=== PATIENT | male | born 1950 | race Caucasian/White ===

== ENCOUNTER → 2018-03-02 09:03 | Outpatient (CLI) | payer OTHER, SELFPAY ==
[2018-03-02 09:36] LABS: Absolute Lymphocyte Count 2.27 X10^3/ul (0.83-4.51); Absolute Neutrophil Count 5.1 X10^3/uL (2.0-7.7); Basophil# 0.05 X10^3/uL; Basophil% 0.6 % (0-1); Eosinophil# 0.25 X10^3/uL; Eosinophils% 2.9 % (0-5); Hematocrit 40.6 % (40-54); Hemoglobin 13.2 g/dl (13.0-16.5); Lymphocyte # 2.27 X10^3/ul (4.0); Lymphocyte % 26.4 % (19-41); Mean Corp Hgb Conc 32.5 g/gl (32-36); Mean Corpuscular Volume 95.3 fL (80-94); Mean Platelet Vol. 9.6 fl (6.2-12.0); Monocyte# 0.94 X10^3/uL; Monocyte% 10.9 % (0-10); Neutrophil # 5.07 X10^3/uL (2.7-7.7); Neutrophil % 59.1 % (47-70); Platelet Count 314 K/mm3 (150-450); RBC Distribution Width CV 13.4 % (11.6-14.6); RBC Distribution Width SD 46.6 fl (35.1-43.9); Red Blood Count 4.26 M/mm3 (4.6-6.2); White Blood Count 8.6 K/mm3 (4.4-11.0)
[2018-03-02 09:39] LABS: POSITIVE COUNT NO; POSITIVE DIFFERENTIAL NO; POSITIVE MORPHOLOGY NO
[2018-03-02 09:50] LABS: Protein, Urine (Random) 8.5 mg/dL (<11.9); Protein:Creat Ratio 124 mg/g CRE (0-200)
[2018-03-02 10:03] LABS: Albumin, Serum 3.2 g/dL (3.2-5.0); BUN 55 mg/dL (7-18); Calcium,Total 8.2 mg/dL (8.5-10.1); Chloride 107 mmol/L (98-107); Cholesterol 227 mg/dL (200); Creatinine, Serum 3.05 mg/dL (0.70-1.30); EST Glomerular Filtration Rate 22 mL/min (>60); Est Glom Filt Rate - Afr Amer 26 mL/min (>60); Glucose 91 mg/dL (74-106); High Density Lipoprotein 39 mg/dL; Phosphorus 3.3 mg/dL (2.5-4.9); Potassium 4.7 mmol/L (3.5-5.1); Sodium Level 138 mmol/L (136-145); Triglycerides 158 mg/dL; Very Low Density Lipoprotein 32 mg/dL (5-40)
[2018-03-02 10:08] LABS: Vitamin D,25 Hydroxy 73.3 ng/mL (29.95-100.01)
== END ==
PROVIDERS: Family Provider Internal Medicine; PCP Internal Medicine; Visit Provider Internal Medicine
DX: I12.9 Hypertensive chronic kidney disease with stage 1 through stage 4 chronic kidney disease, or unspecified chronic kidney disease (principal); N18.3 Chronic kidney disease, stage 3 (moderate); E78.00 Pure hypercholesterolemia, unspecified
CPT/HCPCS: 36415; 80061; 80069; 82306; 82570; 84156; 85025

== ENCOUNTER → 2018-08-26 09:49 | Outpatient (CLI) | payer OTHER, SELFPAY ==
[2018-08-26 11:24] LABS: Hematocrit 41.9 % (40-54); Hemoglobin 13.9 g/dl (13.0-16.5); Mean Corp Hgb Conc 33.2 g/gl (32-36); Mean Corpuscular Hgb 31.9 pg (27.0-32.0); Mean Corpuscular Volume 96.1 fL (80-94); Mean Platelet Vol. 10.2 fl (6.2-12.0); Platelet Count 346 K/mm3 (150-450); RBC Distribution Width SD 44.9 fl (35.1-43.9); Red Blood Count 4.36 M/mm3 (4.6-6.2); White Blood Count 9.1 K/mm3 (4.4-11.0)
[2018-08-26 11:27] LABS: Scan Indicated on CBC? Y/N NO
[2018-08-26 11:56] LABS: Vitamin D,25 Hydroxy 58.3 ng/mL (29.95-100.01)
[2018-08-26 12:18] LABS: ALB/GLOB Ratio 0.8 RATIO (0.9-2.4); AST(SGOT) 21 U/L (15-37); Alanine Aminotransfer ALT/SGPT 39 U/L (16-61); Albumin, Serum 3.2 g/dL (3.2-5.0); Alkaline Phosphatase 116 U/L (45-117); Anion Gap 9 (5-15); BUN 46 mg/dL (7-18); BUN/Creat Ratio 16.9 RATIO (10-20); Calcium,Total 8.3 mg/dL (8.5-10.1); Chloride 105 mmol/L (98-107); Cholesterol 218 mg/dL (200); Creatinine, Serum 2.72 mg/dL (0.70-1.30); EST Glomerular Filtration Rate 25 mL/min (>60); Est Glom Filt Rate - Afr Amer 30 mL/min (>60); Globulin 4.1 g/dL (2.2-4.2); Glucose 82 mg/dL (74-106); High Density Lipoprotein 35 mg/dL; Potassium 4.5 mmol/L (3.5-5.1); Protein, Total 7.3 g/dL (6.4-8.2); Sodium Level 136 mmol/L (136-145); Triglycerides 181 mg/dL; Very Low Density Lipoprotein 36 mg/dL (5-40)
--- OUTSIDE RECORDS SUMMARY | 2018-10-12 08:40 | XMS RPT_ITS ---
:1950 Author Organization [employer] Address [facility] [place] [address] Phone Care Team Providers Name Role Phone Carlos Leggett MD Unavailable Reason for Visit Reason For Visit Description Start Date New/Est - 1st visit with physician Preliminary reason for visit data, not yet signed by the author as of right ring finger Preliminary reason for visit data, not yet signed by the author as of Chief Complaint Chief Complaint Description Start Date right ring finger Preliminary chief complaint data, not yet signed by the author as of Instructions Instruction Description Start Date CompletedPatient advised to follow-up with Primary Care Physician for BMI management. Plan of Care Type Date Detail Appointment 10:45 AM Carlos Leggett MD, [address] [facility], [address], [place], [address], Pending order XR HAND 3+ VWS-RT Pending order EMG/NCT bilateral upper extremity Medications Medication Instructions Start Stop Generic Name NDC Provider Date Date VITAMIN B-6 one tablet / PYRIDOXINE HCL 13405928183 Carlos A 100 MG TABS daily 25 Oleksandr MASSEY TAMSULOSIN Take two / TAMSULOSIN HCL 81213967703 Carlos A HCL 0.4 MG capsule daily 18 Oleksandr MASSEY CAPS METOPROLOL Take one tablet / METOPROLOL 83529309054 Carlos A SUCCINATE ER daily 18 SUCCINATE Oleksandr MASSEY 25 MG [id number] RANITIDINE Take 2 capsules / RANITIDINE HCL 16862754621 Carlos A HCL 150 MG twice daily 18 Oleksandr MASSEY CAPS GLUCOSAMINE-C Take one tablet / GLUCOSAMINE-CHONDR 00712066435 Jenna HONDROITIN daily 18 OITIN CAPS O'Greyson FUELER CAPS EYE VITAMINS Take one / MULTIPLE 53786207490 Jenna CAPS capsule daily 18 VITAMINS-MINERALS O'Greyson FUELER VITAMIN D3 Take one / CHOLECALCIFEROL 45338934957 Jenna SUPER capsule daily 18 O'Greyson FUELER STRENGTH 2000 UNIT CAPS FISH OIL 1000 Take one / OMEGA-3 FATTY 25345050240 Jenna MG CAPS capsule daily 18 ACIDS O'Greyson FUELER LOSARTAN Take one tablet / LOSARTAN POTASSIUM 43599460497 Jenna POTASSIUM 25 daily 18 O'Greyson FUELER MG TABS Conditions or Problems Problem Problem Onset Status Entry Provider Comment Standard Annotate Name Code Date Date Description Trigger 732053457 Active Carlos Morales Triggering of finger, (SNOMED CT) / Oleksandr MASSEY digit right index finger Carpal G56.01 Active Carlos Morales Carpal tunnel tunnel (ICD-10-CM) Oleksandr MASSEY syndrome, 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 Allergies, Adverse Reactions, Alerts Allergy Name Reaction Start Date Severity Status Provider Description ADVIL Kidney disease Critical Active Carlos Morales (IBUPROFEN Oleksandr MASSEY CAPS) Social History Concept Description Observation Name Observation Value Units Start Date Alcohol use ETOH USE Yes Preliminary social history data, not yet signed by the author as of Details of drug DRUG USE No misuse behavior Preliminary social history data, not yet signed by the author as of Former smoker SMOK STATUS former smoker Preliminary social history data, not yet signed by the author as of How many days of EXERCISEFREQ 2 days per moderate to week strenuous exercise, like a brisk walk, did you do in the last 7 days? Preliminary social history data, not yet signed by the author as of Vital Signs Date Name Value Unit Description BMI (Body Mass 28.31 kg/m2 Body Mass Index Index) [Ratio] Preliminary vital sign data, not yet signed by the author as of BP Diastolic 74 mm[Hg] blood pressure, diastolic Preliminary vital sign data, not yet signed by the author as of BP Diastolic 73 mm[Hg] blood pressure, diastolic, second observation Preliminary vital sign data, not yet signed by the author as of BP Systolic 141 mm[Hg] blood pressure, systolic Preliminary vital sign data, not yet signed by the author as of BP Systolic 138 mm[Hg] blood pressure, systolic, second observation Preliminary vital sign data, not yet signed by the author as of Heart Rate 67 /min pulse rate E&M Preliminary vital sign data, not yet signed by the author as of Height 69 [in_us] height E&M Preliminary vital sign data, not yet signed by the author as of Height 175 cm height in centimeters E&M Preliminary vital sign data, not yet signed by the author as of Weight Measured 191 [lb_av] weight E&M Preliminary vital sign data, not yet signed by the author as of Weight Measured 87 kg weight in kilograms E&M Preliminary vital sign data, not yet signed by the author as of Results Date Name Value Unit Range Flag Description Office Visit: New/Est - 1st visit with physician, Rm: MEDS REVIEW Done Documentation of current medications (procedure) Preliminary observation data, not yet signed by the author as of Preliminary observation data, not yet signed by the author as of XRAY HX of the shoulder on xray history 2015 at [facility], of the elbow on 2007 at [facility] Preliminary observation data, not yet signed by the author as of SMOK STATUS former smoker Tobacco smoking status NHIS Preliminary observation data, not yet signed by the author as of Clinical Summary: Scanned ROS Summary ROS COMM Frequenent genitourinary system Urination review of systems, comments ROS: Complains genitourinary review of systems, E&M ROS GI COM Heart Burn Gastrointestional review of systems, comment ROS: GI Complains ROS gastrointestinal E&M ROS ENDO Denies endocrine ROS ROS:MUSCSKEL Denies ROS musculoskeletal E&M ROS: PSYCH Denies ROS psychiatric E&M ROS HEME Denies ROS hematologic/lymphatic E&M ROS SKIN Denies ROS skin E&M ROS ENT Denies ROS ENT E&M ROS:GENERAL Denies ROS general E&M ROS_NEUR_COM Numbness,[place] Review of Systems g Neurologic comment ROS: NEURO Complains ROS neurological E&M ROS:PULMON Denies ROS pulmonary E&M ROS: CARDIAC Denies ROS cardiovascular E&M Clinical Summary: Scanned History Summary DEPEXER FREQ 2 days per week Data entered by patient exercise frequency DEP EXERTYP walkingstrength Data entered by training patient exercise type DEP EXERCISE Yes data entered by patient, exercise history DEP DRUG USE No data entered by patient, drug (of abuse) use 3+ETOHDAILY less than 1 drink consumes three or per day more drinks of alcohol (beer, wine, liquor) daily or almost daily ETOHPERFRM BeerWine adl form etoh alcohol performance DEP ETOH USE Yes data entered by patient, alcohol (ethanol or ETOH) use DEP CIG SMKG 1/2 pack per day data entered by patient, cigarette smoking DEP SH CSMO former smoker data entered by patient, social history, current smoker [place] 3 Floors housing unit size (asthma environmental history, housing) (from single family to don't know) [place] House Housing Type: apartment, house, retirement, trailer, none #DEP CHLDRN No Number of dependent children DEP SH MAST data entered by patient, social history, marital status DEP EMPLOYER Retired data entered by patient, Employer Name SISTER A/D Unknown sister of patient(s) alive or [facility] DAD [facility] Cancer data entered by patient, father's medical history FATHER A/D father of patient is alive or [facility] MOM [facility] Heart data entered by diseaseVascular patient, mother's disease medical history MOTHER A/D mother of patient is alive or [facility] SURGERY Carpal Data entered by tunnelShoulder patient, history surgery otherElbow of past surgeries surgery [facility] Kidney diseaseHigh data entered by blood pressureHigh patient, past cholesterol medical history Clinical Summary: [facility]Patient[facility] SOP account number Procedures Code Procedure Name Date Entry Date CPT-90666 Tendon Sheath injection CPT-J3301 Injection - triamcinolone acetonide 10 mg G8730 Pain assessment documented as positive - follow-up documented G8427 Current medications documented 1036F Tobacco screening was negative - non user G8417 BMI documented as above normal parameters - follow-up documented G8783 Blood pressure within normal parameters - no follow-up required [facility]-[id number] Patient Encounter Medications Administered No information available. Immunizations No information available. Advance Directives There may be information available, but it has not been provided by the sender. Assessments There may be information available, but it has not been provided by the sender. Review of Systems There may be information available, but it has not been provided by the sender. Family History There may be information available, but it has not been provided by the sender. History of Past Illness There may be information available, but it has not been provided by the sender. History of Present Illness There may be information available, but it has not been provided by the sender.
--- OUTSIDE RECORDS SUMMARY | 2018-10-12 08:40 | XMS RPT_ITS ---
:1950 Author Organization [employer] Address [address] [place] [address] Phone Care Team Providers Name Role Phone Gavin KURTZ, Clare Pinon Unavailable Reason for Visit Reason For Visit Description Start Date Postop - subsequent visit Preliminary reason for visit data, not yet signed by the author as of right hand post Revision right carpal tunnel release;Right wrist flexor tendon tenosynovectomy;Application of nerve wrap to median nerve;Hypothenar fat flap on 08/12/2018 Preliminary reason for visit data, not yet signed by the author as of Chief Complaint Chief Complaint Description Start Date right hand post Revision right carpal tunnel release;Right wrist flexor tendon tenosynovectomy;Application of nerve wrap to median nerve;Hypothenar fat flap on 08/12/2018 Preliminary chief complaint data, not yet signed by the author as of Instructions Instruction Description Start Date CompletedPlease follow-up with Primary Care Physician or Preschool Principal for treatment or adjustment of medication regarding elevated blood pressure.Patient advised to follow-up with Primary Care Physician for BMI management. Plan of Care Type Date Detail Appointment 12:45 PM Clare Alonso PA-C, [address] [facility], [address], [place], [address], Appointment 10:30 AM Carlos Leggett MD, [address] [facility], [address], [place], [address], Patient education \[email or web address]\[email or web address]_PtEducation\htn.p df Medications Medication Instructions Start Stop Generic Name NDC Provider Date Date METOPROLOL 1 tablet daily / METOPROLOL [id number] Evita SUCCINATE ER 18 SUCCINATE Nick 25 MG TRADE MARKER [id number] LOSARTAN 1 tablet daily / LOSARTAN POTASSIUM 57869575850 Evita POTASSIUM 25 18 Nick MG TABS TRADE MARKER TAMSULOSIN Twice daily as / TAMSULOSIN HCL 37160561686 Evita HCL 0.4 MG directed 18 Nick CAPS TRADE MARKER RANITIDINE Twice daily as / RANITIDINE HCL 72597054192 Evita HCL 150 MG directed 18 Nick CAPS TRADE MARKER FISH OIL 1000 1 capsule daily / OMEGA-3 FATTY 42310238073 Evita MG CAPS 18 ACIDS Nick TRADE MARKER VITAMIN D3 1 capsule daily / CHOLECALCIFEROL 63079436396 Evita SUPER 18 Nick STRENGTH 2000 TRADE MARKER UNIT CAPS EYE VITAMINS 1 capsule daily / MULTIPLE 65055010090 Evita CAPS 18 VITAMINS-MINERALS Nick TRADE MARKER OSTEO BI-FLEX as directed / MIS NATURAL 30050919462 Evita ADV TRIPLE ST 18 PRODUCTS Nick TABS TRADE MARKER Conditions or Problems Problem Name Problem Onset Status Entry Provider Comment Standard Annotate Code Date Date Description Tendinitis 316296566 Active Carlos A Tendinitis of flexor (SNOMED CT) / Oleksandr MASSEY of flexor tendon of tendon of right hand hand Carpal 99211615 Active Carlos A Carpal tunnel (SNOMED CT) / Oleksandr MASSEY tunnel syndrome, syndrome left Trigger 510774652 Active Carlos A Triggering finger, (SNOMED CT) / Oleksandr MASSEY of digit right index finger Carpal G56.01 Active Carlos A Carpal tunnel (ICD-10-CM) / Oleksandr MASSEY tunnel syndrome syndrome, right upper right upper limb limb Allergies, Adverse Reactions, Alerts Allergy Name Reaction Start Date Severity Status Provider Description NSAID'S Kidney disease Critical Active Evita Nick TRADE MARKER Social History No information available. Vital Signs Date Name Value Unit Description BMI (Body Mass 28.31 kg/m2 Body Mass Index Index) [Ratio] Preliminary vital sign data, not yet signed by the author as of Body Temperature 97.7 [degF] temperature E&M Preliminary vital sign data, not yet signed by the author as of Body Temperature 36.5 Bhargavi temperature in centigrade E&M Preliminary vital sign data, not yet signed by the author as of BP Diastolic 76 mm[Hg] blood pressure, diastolic Preliminary vital sign data, not yet signed by the author as of BP Diastolic 85 mm[Hg] blood pressure, diastolic, second observation Preliminary vital sign data, not yet signed by the author as of BP Systolic 175 mm[Hg] blood pressure, systolic Preliminary vital sign data, not yet signed by the author as of BP Systolic 168 mm[Hg] blood pressure, systolic, second observation Preliminary vital sign data, not yet signed by the author as of Heart Rate 76 /min pulse rate E&M Preliminary vital sign [...] Value Unit Range Flag Description Office Visit: Postop - subsequent visit, Rm: MEDS REVIEW Done Documentation of current medications (procedure) Preliminary observation data, not yet signed by the author as of Preliminary observation data, not yet signed by the author as of Clinical Summary: HMSPatientID SOP account number Office Visit: Postop - 1st visit, Rm: MEDS REVIEW Done Documentation of current medications (procedure) Clinical Summary: HMSPatientID SOP account number Procedures Code Procedure Name Date Entry Date G8731 Pain assessment documented as negative - follow-up not required G8427 Current medications documented 1036F Tobacco screening was negative - non user G8417 BMI documented as above normal parameters - follow-up documented G8950 Blood pressure outside of normal parameters - follow-up documented [facility]-[id number] Patient Encounter Medications Administered No information available. [...]
--- OUTSIDE RECORDS SUMMARY | 2018-10-12 08:40 | XMS RPT_ITS ---
:1950 Author Organization [employer] Address [address] [place] [address] Phone Care Team Providers Name Role Phone Carlos Leggett MD Reason for Visit Reason For Visit Description Start Date Postop - 1st visit Preliminary reason for visit data, not yet signed by the author as of right wrist post Revision right carpal tunnel release;Right wrist flexor tendon tenosynovectomy;Application of nerve wrap to median nerve;Hypothenar fat flap on 08/12/2018 Preliminary reason for visit data, not yet signed by the author as of Chief Complaint Chief Complaint Description Start Date right wrist post Revision right carpal tunnel release;Right wrist flexor tendon tenosynovectomy;Application of nerve wrap to median nerve;Hypothenar fat flap on 08/12/2018 Preliminary chief complaint data, not yet signed by the author as of Instructions Instruction Description Start Date CompletedPatient advised to follow-up with Primary Care Physician for BMI management. Plan of Care Type Date Detail Appointment 10:30 AM Carlos Leggett MD, [address] [facility], [place] [address], [place], [address], Appointment 11:30 AM Arcadio ARTEAGA, [address] [facility] [address], [place], [address], Appointment 10:30 AM Carlos Leggett MD, [address] [facility], [facility] [address], [place], [address], Medications Medication Instructions Start Stop Generic Name NDC Provider Date Date METOPROLOL 1 tablet daily / METOPROLOL 48093979109 Evita SUCCINATE ER 18 SUCCINATE Nick 25 MG DIRECTORY CARRIER [id number] LOSARTAN 1 tablet daily / LOSARTAN POTASSIUM 09200357654 Evita POTASSIUM 25 18 Nick MG TABS DIRECTORY CARRIER TAMSULOSIN Twice daily as / TAMSULOSIN HCL 76044941648 Evita HCL 0.4 MG directed 18 Nick CAPS DIRECTORY CARRIER RANITIDINE Twice daily as / RANITIDINE HCL 15402621663 Evita HCL 150 MG directed 18 Nick CAPS DIRECTORY CARRIER FISH OIL 1000 1 capsule daily / OMEGA-3 FATTY 96770152560 Evita MG CAPS 18 ACIDS Nick DIRECTORY CARRIER VITAMIN D3 1 capsule daily / CHOLECALCIFEROL 48283465833 Evita SUPER 18 Nick STRENGTH 2000 DIRECTORY CARRIER UNIT CAPS EYE VITAMINS 1 capsule daily / MULTIPLE 76566446403 Evita CAPS 18 VITAMINS-MINERALS Nick DIRECTORY CARRIER OSTEO BI-FLEX as directed / MISC NATURAL 48048261019 Evita ADV TRIPLE ST 18 PRODUCTS Nick TABS DIRECTORY CARRIER Conditions or Problems Problem Name Problem Onset Status Entry Provider Comment Standard Annotate Code Date Date Description Tendinitis 802211166 Active Carlos A Tendinitis of flexor (SNOMED CT) / Oleksandr MASSEY of flexor tendon of tendon of right hand hand Carpal 61599690 Active Carlos A Carpal tunnel (SNOMED CT) / Oleksandr MASSEY tunnel syndrome, syndrome left Trigger 233682805 Active Carlos A Triggering finger, (SNOMED CT) / Oleksandr MASSEY of digit right index finger Carpal G56.01 Active Carlos A Carpal tunnel (ICD-10-CM) / Oleksandr MASSEY tunnel syndrome syndrome, right upper right upper limb limb Allergies, Adverse Reactions, Alerts Allergy Name Reaction Start Date Severity Status Provider Description NSAID'S Kidney disease Critical Active Evita Nick DIRECTORY CARRIER Social History No information available. Vital Signs Date Name Value Unit Description BMI (Body Mass 28.31 kg/m2 Body Mass Index Index) [Ratio] Preliminary vital sign data, not yet signed by the author as of BP Diastolic 73 mm[Hg] blood pressure, diastolic Preliminary vital sign data, not yet signed by the author as of BP Systolic 126 mm[Hg] blood pressure, systolic Preliminary vital sign data, not yet signed by the author as of Heart Rate 68 /min pulse rate E&M Preliminary vital sign [...] Range Flag Description Office Visit: Postop - 1st visit, Rm: MEDS REVIEW Done Documentation of current medications (procedure) Preliminary observation data, not yet signed by the author as of Preliminary observation data, not yet signed by the author as of Clinical Summary: HMSPatientID SOP account number Procedures Code Procedure Name Date Entry Date CPT-19796 Occupational Therapy G8730 Pain assessment documented as positive - follow-up documented G8427 Current medications documented 1036F Tobacco screening was negative - non user G8417 BMI documented as above normal parameters - follow-up documented G8783 Blood pressure within normal parameters - no follow-up required [facility]-[id number] Patient Encounter Medications Administered No information available. [...]
--- OUTSIDE RECORDS SUMMARY | 2018-10-12 08:41 | XMS RPT_ITS ---
:1950 Author Organization OH[facility] Care Team Providers Name Role Phone RIYA SON Attending Unavailable TALAMPAS, RIYA D Attending Unavailable TALAMPAS, RIYA D Referring Unavailable Talampas, Riya Attending Unavailable Talampas, Riya Referring Unavailable Talampas, Riya Primary Care Unavailable Talampas, Riya Attending Unavailable Talampas, Irya Referring Unavailable Talampas, Riya Primary Care Unavailable PROBLEMS PROBLEMS DATE TYPE CONDITION / CODE ATTENDING STATUS SOURCE 08/26/2018 Unknown N18.3 - Chronic Talampas, Riya Active [facility] disease, [facility] stage 3 (moderate) Hospital / N18.3(ICD-10) Repository 08/26/2018 Unknown I10 - Essential Talampas, Riya Active [facility] (primary) Community hypertension / Hospital I10(ICD-10) Repository 08/26/2018 Unknown E55.9 - Vitamin D Talampas, Riya Active [facility] deficiency, [facility] unspecified / Hospital E55.9(ICD-10) Repository 08/26/2018 Unknown E78.00 - Pure Talampas, Riya Active [place] hypercholesterolem Community ia, unspecified / Hospital E78.00(ICD-10) Repository 03/09/2018 Active Unknown / TALAMPAS, RIYA Active [facility] UNK(Unknown) D Main [place] Repository PROCEDURES PROCEDURES No Procedure Records FoundRESULTS RESULTS PROGRESS Observed: 09/02/2018 Status: COMPLETED Source: [place] 11:29 AM [facility] REPOSITORY HNO ID: [id number] Author: Riya Son Service: (none) Author Type: Physician Type: Progress Notes Filed: 09/26/2018 6:07 PM Note Text: Patient presents with: F/U 6 months SUBJECTIVE: Herber Yung is a 68 year old year old gentleman here today for 6 month follow up appointment for review of medical conditions. Had episode of elevated BP and heart racing to about 180/92 with HR 95 after tea and coffee. HR 122 when started on machine at [facility]. Asymptomatic. Carpal Tunnel revision--still healing. Numbness and tingling betterbut not yet gone. Right wrist. Will have OT starting tomorrow. No palpations noted. Did note some extra and skipped beats when checking pulse. Did not feel in chest. Some GERD lately. Breakthrough 2 to 3 times a week. Doing better with pushing fluids. 3 glasses water plus coffee in AM. 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 COMPOUNDED PRESCRIPTION Lab order: Renal panel, CBC with diff, Urine protein to creatinine ratio, Vitamin D25-OH, lipid panel. Diagnosis: N18.3, I10, E78.00, I10 zgep-qolj-osl#2-U-uega-ana lilia-bor (OSTEO BI-FLEX TRIPLE STRENGTH) 750 mg-644 mg- 30 mg-1 mg tab Take by mouth. losartan (COZAAR) 25 mg tablet Take 1 tablet by mouth once daily. metoprolol tartrate, short acting, (LOPRESSOR) 25 mg tablet Take 1 tablet by mouth every evening. multivitamin ORAL tablet Take 1 tablet by mouth once daily. [place]-3 Fatty Acids (FISH OIL) 500 mg ORAL Cap Take 2 capsules by mouth once daily. ranitidine (ZANTAC) 150 mg tablet Take 1 tablet by mouth twice daily. tamsulosin ER (FLOMAX) 0.4 mg cp24 Take 2 capsules by mouth daily at bedtime. [facility] vit A-vit C-vit A-qeet-ytspje (EYE VITAMIN AND MINERALS) 7,160-113-100 lklq-qf-jmoz tab Take by mouth. No current facility-administered medications for this visit. OBJECTIVE: BP 122/60 (BP Site: Left Arm, BP Position: Sitting, BP Cuff Size: Regular Adult) Pulse 72 Resp 12 Wt 87.1 kg (192 lb) BMI 28.77 kg/m? Patient is alert, oriented times 3, no apparent distress, affect is bright, reactive. Last 5 Encounter BP Readings: Date: BP: 09/02/2018 122/60 03/09/2018 112/58 09/01/2017 130/80 02/04/2017 128/60 07/31/2016 126/68 Last 5 Encounter Wt Readings: Date: Wt: 09/02/2018 87.1 kg (192 lb) 03/09/2018 85.7 kg (189 lb) 09/01/2017 86.6 kg (191 lb) 02/04/2017 88.5 kg (195 lb) 07/31/2016 87.1 kg (192 lb) Heart: Regular rate, rhythm, no murmurs, gallops, rubs. Some ectopy noted but otherwise RRR. Lungs: Clear to auscultation, bilaterally, breathing non labored. Ext: No cyanosis, clubbing, or edema. right wrist--surgey wound from carpal tunnel revision healing well ASSESSMENT AND PLAN: Encounter Diagnosis ICD-10-CM 1. Essential hypertension I10 metoprolol tartrate, short acting, (LOPRESSOR) 25 mg tablet losartan (COZAAR) 25 mg tablet COMP METABOLIC PANEL CBC 2. Pure hypercholesterolemia E78.00 LIPID PANEL (OUTSIDE) LIPID PANEL BASIC 3. CKD (chronic kidney disease) stage 3, GFR 30-59 ml/min ([facility]) N18.3 COMP METABOLIC PANEL CBC Cr and BU improved but eGFR still 25 4. Gastroesophageal reflux disease without esophagitis K21.9 ranitidine (ZANTAC) 150 mg tablet omeprazole (PRILOSEC) 20 mg capsule 5. Tachycardia, paroxysmal (HCC) I47.9 Reviewed episodes of heart racing and elevated BP. Asymptomatic. Able to keep exercising. Monitor. Stay hydrated--seems to help decrease episodes; also for renal protection given CKD stage 3 eGFR. Further evaluation and treatment as indicated. Continue Q3mdqaktk for GERD. Further evaluation and treatment as indicated. Above issues addressed with patient. Patient involved in shared decision making for management of medical issues. History and medications reviewed. Epic updated as needed Refills taken care of and meds adjusted as indicated after reviewed history, exam and labs. Health Maintenance reviewed. Updated record and/or ordered tests as recorded. Further evaluation and treatment as indicated. Encouraged on efforts at healthy diet and regular exercise and adequate sleep. The majority of the visit was spent counseling and/or coordinating care for the patient. Hrda-ed-temo time was at least 20 minutes. Riya Son MD CNOV Observed: 09/02/2018 Status: COMPLETED Source: [place] 11:00 AM [facility] REPOSITORY Office Visit (INTMWS) HERBER YUNG ([id number]) 1950 M Date Time Provider Department 09/02/18 11:00 AM RIYA SON INTMWS During your visit today, we recorded the following information about you: Pulse Respiration Blood pressure Weight 72/minute 12/minute 122/60 87.1 kg Riya Son MD 09/26/2018 6:07 PM Signed Patient presents with: F/U 6 months SUBJECTIVE: Herber Yung is a 68 year old year old gentleman here today for 6 month follow up appointment for review of medical conditions. Had episode of elevated BP and heart racing to about 180/92 with HR 95 after tea and coffee. HR 122 when started on machine at [facility]. Asymptomatic. Carpal Tunnel revision--still healing. Numbness and tingling betterbut not yet gone. Right wrist. Will have OT starting tomorrow. No palpations noted. Did note some extra and skipped beats when checking pulse. Did not feel in chest. Some GERD lately. Breakthrough 2 to 3 times a week. Doing better with pushing fluids. 3 glasses water plus coffee in AM. 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 COMPOUNDED PRESCRIPTION Lab order: Renal panel, CBC with diff, Urine protein to creatinine ratio, Vitamin D25-OH, lipid panel. Diagnosis: N18.3, I10, E78.00, I10 cftt-kpvp-ieb#6-A-zftr-ana lilia-bor (OSTEO BI-FLEX TRIPLE STRENGTH) 750 mg-644 mg- 30 mg-1 mg tab Take by mouth. losartan (COZAAR) 25 mg tablet Take 1 tablet by mouth once daily. metoprolol tartrate, short acting, (LOPRESSOR) 25 mg tablet Take 1 tablet by mouth every evening. multivitamin ORAL tablet Take 1 tablet by mouth once daily. [place]-3 Fatty Acids (FISH OIL) 500 mg ORAL Cap Take 2 capsules by mouth once daily. ranitidine (ZANTAC) 150 mg tablet Take 1 tablet by mouth twice daily. tamsulosin ER (FLOMAX) 0.4 mg cp24 Take 2 capsules by mouth daily at bedtime. [facility]) vit A-vit C-vit E-jsjf-lebynz (EYE VITAMIN AND MINERALS) 7,160-113-100 ewyu-ib-hrjw tab Take by mouth. No current facility-administered medications for this visit. OBJECTIVE: BP 122/60 (BP Site: Left Arm, BP Position: Sitting, BP Cuff Size: Regular Adult) Pulse 72 Resp 12 Wt 87.1 kg (192 lb) BMI 28.77 kg/m? Patient is alert, oriented times 3, no apparent distress, affect is bright, reactive. Last 5 Encounter BP Readings: Date: BP: 09/02/2018 122/60 03/09/2018 112/58 09/01/2017 130/80 02/04/2017 128/60 07/31/2016 126/68 Last 5 Encounter Wt Readings: Date: Wt: 09/02/2018 87.1 kg (192 lb) 03/09/2018 85.7 kg (189 lb) 09/01/2017 86.6 kg (191 lb) 02/04/2017 88.5 kg (195 lb) 07/31/2016 87.1 kg (192 lb) Heart: Regular rate, rhythm, no murmurs, gallops, rubs. Some ectopy noted but otherwise RRR. Lungs: Clear to auscultation, bilaterally, breathing non labored. Ext: No cyanosis, clubbing, or edema. right wrist--surgey wound from carpal tunnel revision healing well ASSESSMENT AND PLAN: Encounter Diagnosis ICD-10-CM 1. Essential hypertension I10 metoprolol tartrate, short acting, (LOPRESSOR) 25 mg tablet losartan (COZAAR) 25 mg tablet COMP METABOLIC PANEL CBC 2. Pure hypercholesterolemia E78.00 LIPID PANEL (OUTSIDE) LIPID PANEL BASIC 3. CKD (chronic kidney disease) stage 3, GFR 30-59 ml/min ([facility]) N18.3 COMP METABOLIC PANEL CBC Cr and BU improved but eGFR still 25 4. Gastroesophageal reflux disease without esophagitis K21.9 ranitidine (ZANTAC) 150 mg tablet omeprazole (PRILOSEC) 20 mg capsule 5. Tachycardia, paroxysmal ([facility]) I47.9 Reviewed episodes of heart racing and elevated BP. Asymptomatic. Able to keep exercising. Monitor. Stay hydrated--seems to help decrease episodes; also for renal protection given CKD stage 3 eGFR. Further evaluation and treatment as indicated. Continue Q4ogncdez for GERD. Further evaluation and treatment as indicated. Above issues addressed with patient. Patient involved in shared decision making for management of medical issues. History and medications reviewed. Epic updated as needed Refills taken care of and meds adjusted as indicated after reviewed history, exam and labs. Health Maintenance reviewed. Updated record and/or ordered tests as recorded. Further evaluation and treatment as indicated. Encouraged on efforts at healthy diet and regular exercise and adequate sleep. The majority of the visit was spent counseling and/or coordinating care for the patient. Tcnh-mv-rpou time was at least 20 minutes. MD Riya Spence MD 09/02/2018 11:41 AM Signed May take an extra metoprolol 25 mg as needed for blood pressure staying over 150/100 or heart rate over 100. If have to do this very often, can take metoprolol 25 mg twice daily routinely. See if the episodes in the morning--might be because short- acting metoprolol is not lasting 24 hours. Let me know if need new prescription to cover for taking more. Referring Provider: RIYA SON [[id number]] Allergies As of Date: 09/02/2018 Noted Allergy Reaction ADVIL (IBUPROFEN) 04/30/2011 14 - Other: See Comments Comments: Advil had caused BP to go high after just 2 days Date Reviewed: 09/02/2018 Reviewed by: Kurt Myers - Fully Assessed Reason for Visit: F/U 6 months [1177] Primary Visit Diagnosis:Essential hypertension [I10] Other Visit Diagnoses:Pure hypercholesterolemia [E78.00] CKD (chronic kidney disease) stage 3, GFR 30-59 ml/min (HCC) [N18.3] Comment:Cr and BU improved but eGFR still 25 Gastroesophageal reflux disease without esophagitis [K21.9] Tachycardia, paroxysmal (HCC) [I47.9] Order(s):LIPID PANEL (OUTSIDE) [9570489] Order #: [id number] FASTING BLOOD SUGAR (OUTSIDE) [8718989] Order #: [id number] ranitidine (ZANTAC) 150 mg tabletTake 1 tablet by mouth twice daily.Disp: 180 tabletRfl: 3 metoprolol tartrate, short acting, (LOPRESSOR) 25 mg tabletTake 1 tablet by mouth every evening.Disp: 90 tabletRfl: 3 losartan (COZAAR) 25 mg tabletTake 1 tablet by mouth once daily.Disp: 90 tabletRfl: 3 omeprazole (PRILOSEC) 20 mg capsuleTake 1 capsule by mouth daily before breakfast. 1/2 hr before meal.Disp: 30 capsuleRfl: 1 COMP METABOLIC PANEL [SQCMP] Order #: [id number] FUTURE LIPID PANEL BASIC [SQLIPB] Order #: [id number] FUTURE CBC [SQCBC] Order #: [id number] FUTURE Prescriptions as of 09/02/2018 Sig: RANITIDINE 150 MG TABLET Take 1 tablet by mouth twice * METOPROLOL TARTRATE 25 MG TAB* Take 1 tablet by mouth every * LOSARTAN 25 MG TABLET Take 1 tablet by mouth once d* COMPOUNDED PRESCRIPTION Lab order: Renal panel, CBC* TAMSULOSIN 0.4 MG CAPSULE Take 2 capsules by mouth nikolai* GLUCOSAMINE 750 MG-CHONDROITI* Take by mouth. VIT A 7,160 UNIT-VIT C 113 MG* Take by mouth. CHOLECALCIFEROL (VITAMIN D3) * Take 1 tablet by mouth once d* * [place]-3 FATTY ACIDS 500 MG CA* Take 2 capsules by mouth once* * MULTIVITAMIN TABLET Take 1 tablet by mouth once d* OMEPRAZOLE 20 MG CAPSULE,ROXANNE* Take 1 capsule by mouth daily* Problem List As Of Date 09/02/2018 Noted Resolved PURE HYPERCHOLESTEROLEM [E78.00] More... Essential hypertension [I10] IMPAIRED RENAL FUNCT NOS [N25.9] INVALID FOR* More... ESOPHAGEAL REFLUX [K21.9] INVALID FOR* More... OVERWEIGHT [E66.3] INVALID FOR* More... BPH with obstruction/lower urinary tract sympto*INVALID FOR* More... Benign Neoplasm of Colon [D12.6] INVALID FOR* More... Diverticulosis of Colon (without Mention of Hem*INVALID FOR* Special screening for malignant neoplasms, colo*INVALID FOR* CKD (chronic kidney disease) stage 3, GFR 30-59*INVALID FOR* More... Other instructions from your clinician: May take an extra metoprolol 25 mg as needed for blood pressure staying over 150/100 or heart rate over 100. If have to do this very often, can take metoprolol 25 mg twice daily routinely. See if the episodes in the morning--might be because short-acting metoprolol is not lasting 24 hours. Let me know if need new prescription to cover for taking more. Prescriptions ordered this encounter Disp Refills Start End RANITIDINE 150 MG TABLET 180 * 3 09/02/2018 Route: ORAL Sig: Take 1 tablet by mouth twice daily. METOPROLOL TARTRATE 25 MG TABLET 90 t* 3 09/02/2018 Route: ORAL Sig: Take 1 tablet by mouth every evening. LOSARTAN 25 MG TABLET 90 t* 3 09/02/2018 Route: ORAL Sig: Take 1 tablet by mouth once daily. OMEPRAZOLE 20 MG CAPSULE,DELAYED REL* 30 c* 1 09/02/2018 Route: ORAL Sig: Take 1 capsule by mouth daily before breakfast. 1/2 hr before meal. Medications Discontinued During This Encounter ranitidine (ZANTAC) 150 mg tablet 180 * 3 09/01/2017 09/02/2018 Route: ORAL Sig: Take 1 tablet by mouth twice daily. Disc: Reason for discontinue is not on file. metoprolol tartrate, short acting, (* 90 t* 3 09/01/2017 09/02/2018 Route: ORAL Sig: Take 1 tablet by mouth every evening. Disc: Reason for discontinue is not on file. losartan (COZAAR) 25 mg tablet 90 t* 3 09/01/2017 09/02/2018 Route: ORAL Sig: Take 1 tablet by mouth once daily. Disc: Reason for discontinue is not on file. Disposition: Return in about 6 months (around 03/03/2019) for 6 months follow up, With labs prior. Follow-up and Disposition History Recorded Encounter Status:Closed by RIYA SON MD on 09/26/18 CBC-COMPLETE BLOOD CNT Collected: 08/26/2018 Status: F Source: [place] NO DIFF 9:55 AM [facility] REPOSITORY TYPE CODE TESTS RESULT OUT OF RANGE REFERENCE UNITS LAB L100.1000 4.4-11.0 K/mm3 Normal WBC 9.1 LAB L100.1200 4.6-6.2 M/mm3 Low RBC 4.36 LAB L100.1300 13.0-16.5 g/dl Normal HGB 13.9 LAB L100.1400 40-54 % Normal HCT 41.9 LAB L100.1500 80-94 fL High MCV 96.1 LAB L100.1600 27.0-32.0 pg Normal MCH 31.9 LAB L100.1700 32-36 g/gl Normal MCHC 33.2 LAB L100.1810 11.6-14.6 % Normal RDW CV 13.0 LAB L100.1820 35.1-43.9 fl High RDW SD 44.9 LAB L100.1900 150-450 K/mm3 Normal PLT 346 LAB L100.2000 6.2-12.0 fl Normal MPV 10.2 Performed By: #### L100.0500 #### [facility] [address] [place], [place], [id number] VITAMIN D,25 HYDROXY Collected: 08/26/2018 Status: F Source: [place] 9:55 AM [facility] REPOSITORY TYPE CODE TESTS RESULT OUT OF RANGE REFERENCE UNITS LAB L506.1000 29.95-100.01 ng/mL Normal Vitamin D 58.3 25-OH Result Comment: Vitamin D 25(OH) Status Range Deficiency <20 ng/mL (50nmol/L) Insuffciency 20 - 30 ng/mL (50 - 75 nmol/L) Sufficiency 30 - 100 ng/mL (75 - 250 nmol/L) Toxicity >100 ng/mL (>250 nmol/L) Performed By: #### L506.1000 #### [facility] [address] [place], [address] COMPREHENSIVE METABOLIC Collected: 08/26/2018 Status: F Source: [place] 9:55 AM [facility] REPOSITORY TYPE CODE TESTS RESULT OUT OF RANGE REFERENCE UNITS LAB L501.0100 74-106 mg/dL Normal GLU 82 Result Comment: Please note revised GLUCOSE reference range effective 2017. LAB L501.1000 7-18 mg/dL High BUN 46 LAB L501.1100 0.70-1.30 mg/dL High CREAT,SERUM 2.72 Result Comment: The validity of the calculated GFR AND GFRAA in patients over 70 years has not been determined. Clinical correlation is essential. LAB L501.1110 >60 mL/min Low EST GFR 25 Result Comment: Non- GFR Calc LAB L501.1115 >60 mL/min Low EST GFR - AA 30 Result Comment: GFR Calc LAB L501.1300 10-20 RATIO Normal BUN/CRE 16.9 LAB L501.1500 6.4-8.2 g/dL T Normal PROT 7.3 LAB L501.1800 3.2-5.0 g/dL Normal ALB 3.2 LAB L501.1950 2.2-4.2 g/dL Normal GLOB 4.1 LAB L501.2000 0.9-2.4 RATIO Low A/G 0.8 LAB L501.2200 8.5-10.1 mg/dL Low CA 8.3 LAB L501.4100 15-37 U/L Normal AST 21 LAB L501.4305 45-117 U/L Normal ALK P 116 LAB L501.4405 16-61 U/L Normal ALT 39 LAB L501.4600 0.20-1.00 mg/dL T Normal BILI 0.40 LAB L501.5300 136-145 mmol/L NA Normal 136 LAB L501.5600 3.5-5.1 mmol/L K Normal 4.5 LAB L501.5900 98-107 mmol/L CL Normal 105 LAB L501.6100 21.0-32.0 mmol/L Normal CO2 22.0 LAB L501.6200 5-15 Normal GAP 9 Performed By: #### L500.4050, L500.4100 #### [facility] [address] [place], [address] LIPID PROFILE Collected: 08/26/2018 Status: F Source: [place] 9:55 AM [facility] REPOSITORY TYPE CODE TESTS RESULT OUT OF RANGE REFERENCE UNITS LAB L501.4900 200 mg/dL High CHOL 218 Result Comment: <200 mg/dL Desirable 200-240 mg/dL Borderline >240 mg/dL High Risk LAB L501.5000 mg/dL Normal TRIG 181 Result Comment: The drugs N-Acetylcysteine and Metamizole may falsely depress this assay. Serum Triglycerides Reference Interval Normal <150 mg/dL Borderline high 150 - 199 mg/dL High 200 - 499 mg/dL Very High > or = 500 mg/dL LAB L501.6400 mg/dL Low HDL 35 Result Comment: The drugs N-Acetylcysteine and Metamizole may falsely depress this assay. Reference Range HDL <40 mg/dL Low HDL Cholesterol HDL >or= 60 mg/dL High HDL Cholesterol LAB L501.6500 0-130 mg/dL High LDL 147 LAB L501.6600 5-40 mg/dL Normal VLDL 36 Performed By: #### L500.4050, L500.4100 #### [facility] [address] [facility]. [place], [place], [address] PROGRESS Observed: 03/09/2018 Status: COMPLETED Source: [place] 8:07 AM [facility] REPOSITORY HNO ID: [id number] Author: Riya Son Service: (none) Author Type: Physician Type: Progress Notes Filed: 03/17/2018 12:51 AM Note Text: Patient presents with: Established Patient: 6 month follow up SUBJECTIVE: Herber Yung is a 67 year old year old gentleman here today for 6 month follow up appointment for review of medical conditions. Does trap shooting. CTS acting up but better today. Tylenol as needed. Blood pressure controlled without adverse effects from medications. 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 losartan (COZAAR) 25 mg tablet Take 1 tablet by mouth once daily. metoprolol tartrate, short acting, (LOPRESSOR) 25 mg tablet Take 1 tablet by mouth every evening. COMPOUNDED PRESCRIPTION Lab order: Renal panel, CBC with diff, Urine protein to creatinine ratio, Vitamin D25-OH, lipid panel. Diagnosis: N18.3, I10, E78.00, I10 tamsulosin ER (FLOMAX) 0.4 mg cp24 Take 2 capsules by mouth daily at bedtime. (RX from [facility]) zpcy-pxna-emk#4-I-wjxm-ana lilia-bor (OSTEO BI-FLEX TRIPLE STRENGTH) 750 mg-644 mg- 30 mg-1 mg tab Take by mouth. vit A-vit C-vit C-jovf-mxsbss (EYE VITAMIN AND MINERALS) 7,160-113-100 qknc-xq-bhhq tab Take by mouth. Cholecalciferol, Vitamin D3, 2,000 unit cap Take 1 tablet by mouth once daily. [place]-3 Fatty Acids (FISH OIL) 500 mg ORAL Cap Take 2 capsules by mouth once daily. multivitamin ORAL tablet Take 1 tablet by mouth once daily. No current facility-administered medications for this visit. OBJECTIVE: BP 112/58 (BP Site: Right Arm, BP Position: Sitting, BP Cuff Size: Regular Adult) Resp 12 Ht 174 cm (5' 8.5) Wt 85.7 kg (189 lb) BMI 28.32 kg/m? Patient is alert, oriented times 3, no apparent distress, affect is bright, reactive. Last 5 Encounter BP Readings: Date: BP: 03/09/2018 112/58 09/01/2017 130/80 02/04/2017 128/60 07/31/2016 126/68 01/19/2016 114/62 Last 5 Encounter Wt Readings: Date: Wt: 03/09/2018 85.7 kg (189 lb) 09/01/2017 86.6 kg (191 lb) 02/04/2017 88.5 kg (195 lb) 07/31/2016 87.1 kg (192 lb) 01/19/2016 85.3 kg (188 lb) Heart: Regular rate, rhythm, no murmurs, gallops, rubs. Lungs: Clear to auscultation, bilaterally, breathing non labored. Ext: No cyanosis, clubbing, or edema. Neg Tinel's and Phalen's; no hand weakness Component Latest Ref Rng AND Units 03/02/2018 Cholesterol, Total 227 Triglyceride 158 HDL CHOLESTEROL 39 LDL Cholesterol 156 VLDL Cholesterol 32 Noted that lipids 10% ASCVD risk around 18% with current numbers. ASSESSMENT AND PLAN: Encounter Diagnosis ICD-10-CM 1. Essential hypertension I10 COMP METABOLIC PANEL CBC 2. Pure hypercholesterolemia E78.00 LIPID PANEL BASIC 3. CKD (chronic kidney disease) stage 3, GFR 30-59 ml/min (HCC) N18.3 COMP METABOLIC PANEL CBC Suspect still stage 3 since has been fasting even from water on labs 4. Vitamin D deficiency E55.9 VITAMIN D 25 HYDROXY 5. Carpal tunnel syndrome of right wrist G56.01 BP controlled. Continue present management. Lipids discussed--risk as noted above is >7.5% but prefers to work on diet and exercise and does not want to take statin. See patient instructions. Discussed CKD stages. Needs to stay hydrated and drink adequate fluids before labs. Adjust Vitamin D intake as indicated Can refer to ortho or PT/OT if conservative management for CTS not adequate. Above issues addressed with patient. Patient involved in shared decision making for management of her medical issues. History and medications reviewed. Epic updated as needed Refills taken care of and meds adjusted as indicated after reviewed history, exam and labs. Health Maintenance reviewed. Updated record and/or ordered tests as recorded. Encouraged on efforts at healthy diet and regular exercise and adequate sleep. The majority of the visit was spent counseling and/or coordinating care for the patient. Xjvl-ri-jpwe time was at least 20 minutes. Riya Son MD CNOV Observed: 03/09/2018 Status: COMPLETED Source: [place] 8:00 AM [facility] REPOSITORY Office Visit (INTMWS) HERBER YUNG ([id number]) 1950 M Date Time Provider Department 03/09/18 8:00 AM RIYA SON During your visit today, we recorded the following information about you: Respiration Blood pressure Weight Height 12/minute 112/58 85.7 kg 1.74 m Riya Son MD 03/17/2018 12:51 AM Signed Patient presents with: Established Patient: 6 month follow up SUBJECTIVE: Herber Yung is a 67 year old year old gentleman here today for 6 month follow up appointment for review of medical conditions. Does trap shooting. CTS acting up but better today. Tylenol as needed. Blood pressure controlled without adverse effects from medications. 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 losartan (COZAAR) 25 mg tablet Take 1 tablet by mouth once daily. metoprolol tartrate, short acting, (LOPRESSOR) 25 mg tablet Take 1 tablet by mouth every evening. COMPOUNDED PRESCRIPTION Lab order: Renal panel, CBC with diff, Urine protein to creatinine ratio, Vitamin D25-OH, lipid panel. Diagnosis: N18.3, I10, E78.00, I10 tamsulosin ER (FLOMAX) 0.4 mg cp24 Take 2 capsules by mouth daily at bedtime. [facility] cxza-oatd-fff#7-N-azza-ana lilia-bor (OSTEO BI-FLEX TRIPLE STRENGTH) 750 mg-644 mg- 30 mg-1 mg tab Take by mouth. vit A-vit C-vit H-rvsf-vpymin (EYE VITAMIN AND MINERALS) 7,160-113-100 acbr-jw-dyua tab Take by mouth. Cholecalciferol, Vitamin D3, 2,000 unit cap Take 1 tablet by mouth once daily. [place]-3 Fatty Acids (FISH OIL) 500 mg ORAL Cap Take 2 capsules by mouth once daily. multivitamin ORAL tablet Take 1 tablet by mouth once daily. No current facility-administered medications for this visit. OBJECTIVE: BP 112/58 (BP Site: Right Arm, BP Position: Sitting, BP Cuff Size: Regular Adult) Resp 12 Ht 174 cm (5' 8.5) Wt 85.7 kg (189 lb) BMI 28.32 kg/m? Patient is alert, oriented times 3, no apparent distress, affect is bright, reactive. Last 5 Encounter BP Readings: Date: BP: 03/09/2018 112/58 09/01/2017 130/80 02/04/2017 128/60 07/31/2016 126/68 01/19/2016 114/62 Last 5 Encounter Wt Readings: Date: Wt: 03/09/2018 85.7 kg (189 lb) 09/01/2017 86.6 kg (191 lb) 02/04/2017 88.5 kg (195 lb) 07/31/2016 87.1 kg (192 lb) 01/19/2016 85.3 kg (188 lb) Heart: Regular rate, rhythm, no murmurs, gallops, rubs. Lungs: Clear to auscultation, bilaterally, breathing non labored. Ext: No cyanosis, clubbing, or edema. Neg Tinel's and Phalen's; no hand weakness Component Latest Ref Rng AND Units 03/02/2018 Cholesterol, Total 227 Triglyceride 158 HDL CHOLESTEROL 39 LDL Cholesterol 156 VLDL Cholesterol 32 Noted that lipids 10% ASCVD risk around 18% with current numbers. ASSESSMENT AND PLAN: Encounter Diagnosis ICD-10-CM 1. Essential hypertension I10 COMP METABOLIC PANEL CBC 2. Pure hypercholesterolemia E78.00 LIPID PANEL BASIC 3. CKD (chronic kidney disease) stage 3, GFR 30-59 ml/min (HCC) N18.3 COMP METABOLIC PANEL CBC Suspect still stage 3 since has been fasting even from water on labs 4. Vitamin D deficiency E55.9 VITAMIN D 25 HYDROXY 5. Carpal tunnel syndrome of right wrist G56.01 BP controlled. Continue present management. Lipids discussed--risk as noted above is >7.5% but prefers to work on diet and exercise and does not want to take statin. See patient instructions. Discussed CKD stages. Needs to stay hydrated and drink adequate fluids before labs. Adjust Vitamin D intake as indicated Can refer to ortho or PT/OT if conservative management for CTS not adequate. Above issues addressed with patient. Patient involved in shared decision making for management of her medical issues. History and medications reviewed. Epic updated as needed Refills taken care of and meds adjusted as indicated after reviewed history, exam and labs. Health Maintenance reviewed. Updated record and/or ordered tests as recorded. Encouraged on efforts at healthy diet and regular exercise and adequate sleep. The majority of the visit was spent counseling and/or coordinating care for the patient. Vnjq-qv-yutq time was at least 20 minutes. MD Riya Spence MD 03/09/2018 8:50 AM Signed Keep working on healthy diet and regular exercise to help with cholesterol. Carbohydrates for triglycerides Animal fats for the LDL. [place] 3 oils to help with TG and HDL [facility] about [facility] and consider Crestor (even starting at just low dose like 5 mg once daily instead of 10 mg daily). No fasting from water before labs. Referring Provider: SELF [200] Allergies As of Date: 03/09/2018 Noted Allergy Reaction ADVIL (IBUPROFEN) 04/30/2011 14 - Other: See Comments Comments: Advil had caused BP to go high after just 2 days Date Reviewed: 03/09/2018 Reviewed by: Madonna Cotto LPN - Fully Assessed Reason for Visit: Established Patient [175] Cmt: 6 month follow up Primary Visit Diagnosis:Essential hypertension [I10] Other Visit Diagnoses:Pure hypercholesterolemia [E78.00] CKD (chronic kidney disease) stage 3, GFR 30-59 ml/min (HCC) [N18.3] Comment:Suspect still stage 3 since has been fasting even from water on labs Vitamin D deficiency [E55.9] Carpal tunnel syndrome of right wrist [G56.01] Order(s):LIPID PANEL (OUTSIDE) [6739866] Order #: [id number] COMP METABOLIC PANEL [SQCMP] Order #: [id number] FUTURE CBC [SQCBC] Order #: [id number] FUTURE VITAMIN D 25 HYDROXY [SQVITD] Order #: [id number] FUTURE LIPID PANEL BASIC [SQLIPB] Order #: [id number] FUTURE Prescriptions as of 03/09/2018 Sig: RANITIDINE 150 MG TABLET Take 1 tablet by mouth twice * LOSARTAN 25 MG TABLET Take 1 tablet by mouth once d* METOPROLOL TARTRATE 25 MG TAB* Take 1 tablet by mouth every * COMPOUNDED PRESCRIPTION Lab order: Renal panel, CBC* TAMSULOSIN 0.4 MG CAPSULE Take 2 capsules by mouth nikolai* GLUCOSAMINE 750 MG-CHONDROITI* Take by mouth. VIT A 7,160 UNIT-VIT C 113 MG* Take by mouth. CHOLECALCIFEROL (VITAMIN D3) * Take 1 tablet by mouth once d* * OMEGA-3 FATTY ACIDS 500 MG CA* Take 2 capsules by mouth once* * MULTIVITAMIN TABLET Take 1 tablet by mouth once d* Problem List As Of Date 03/09/2018 Noted Resolved PURE HYPERCHOLESTEROLEM [E78.00] More... Essential hypertension [I10] IMPAIRED RENAL FUNCT NOS [N25.9] INVALID FOR* More... ESOPHAGEAL REFLUX [K21.9] INVALID FOR* More... OVERWEIGHT [E66.3] INVALID FOR* More... BPH with obstruction/lower urinary tract sympto*INVALID FOR* More... Benign Neoplasm of Colon [D12.6] INVALID FOR* More... Diverticulosis of Colon (without Mention of Hem*INVALID FOR* Special screening for malignant neoplasms, colo*INVALID FOR* Other instructions from your clinician: Keep working on healthy diet and regular exercise to help with cholesterol. Carbohydrates for triglycerides Animal fats for the LDL. [place] 3 oils to help with TG and HDL [facility] about [facility] and consider Crestor (even starting at just low dose like 5 mg once daily instead of 10 mg daily). No fasting from water before labs. Disposition: Return for 6 months follow up, With labs prior. Follow-up and Disposition History Recorded Encounter Status:Closed by RIYA SON MD on 03/17/18 CBC W/DIFF, AUTOMATED Collected: 03/02/2018 Status: F Source: [place] 9:07 AM [facility] REPOSITORY TYPE CODE TESTS RESULT OUT OF RANGE REFERENCE UNITS LAB L100.1000 4.4-11.0 K/mm3 Normal WBC 8.6 LAB L100.1200 4.6-6.2 M/mm3 Low RBC 4.26 LAB L100.1300 13.0-16.5 g/dl Normal HGB 13.2 LAB L100.1400 40-54 % Normal HCT 40.6 LAB L100.1500 80-94 fL High MCV 95.3 LAB L100.1600 27.0-32.0 pg Normal MCH 31.0 LAB L100.1700 32-36 g/gl Normal MCHC 32.5 LAB L100.1810 11.6-14.6 % Normal RDW CV 13.4 LAB L100.1820 35.1-43.9 fl High RDW SD 46.6 LAB L100.1900 150-450 K/mm3 Normal PLT 314 LAB L100.2000 6.2-12.0 fl Normal MPV 9.6 LAB L100.2100 47-70 % Normal NEUT% 59.1 LAB L100.2200 19-41 % Normal LY% 26.4 LAB L100.2300 0-10 % High MONO% 10.9 LAB L100.2400 0-5 % Normal EO% 2.9 LAB L100.2500 0-1 % Normal BASO% 0.6 LAB L100.2550 0.0-0.9 % Normal IM GRAN % 0.100 Result Comment: IG% - Immature Granulocytes (promyelocytes, myelocytes and metamyelocytes) > 1% indicates that a LEFT SHIFT is Present. LAB L100.2620 2.0-7.7 X10 3/uL Normal Absolute Neut 5.1 LAB L100.2720 0.83-4.51 X10 3/ul Normal Absolute Lymph 2.27 Performed By: #### L100.0100 #### [facility] [address], [place], [address] PROTEIN+CREATININE Collected: Status: F [facility]02[facility]2018 9:07 [facility] REPOSITORY TYPE CODE TESTS RESULT OUT OF RANGE REFERENCE UNITS LAB L501.1200 NO RANGE EST. mg/dL Normal UR CREAT 68.50 LAB L501.1930 <11.9 mg/dL Normal 8.5 PROTEIN,UR.R AN. LAB L501.1940 0-200 mg/g CRE Normal PROT:CRE 124 RATIO Performed By: #### L501.0900 #### [facility] [address] [place], [address] RENAL PROFILE Collected: 03/02/2018 Status: F Source: [place] 9[facility]07 [facility] TYPE CODE TESTS RESULT OUT OF RANGE REFERENCE UNITS LAB L501.0100 74-106 mg/dL Normal GLU 91 Result Comment: Please note revised GLUCOSE reference range effective 2017. LAB L501.1000 7-18 mg/dL High BUN 55 LAB L501.1100 0.70-1.30 mg/dL High CREAT,SERUM 3.05 Result Comment: The validity of the calculated GFR AND GFRAA in patients over 70 years has not been determined. Clinical correlation is essential. LAB L501.1110 >60 mL/min Low EST GFR 22 Result Comment: Non- GFR Calc LAB L501.1115 >60 mL/min Low EST GFR - AA 26 Result Comment: GFR Calc LAB L501.1300 10-20 RATIO Normal BUN/CRE 18.0 LAB L501.1800 3.2-5.0 g/dL Normal ALB 3.2 LAB L501.2200 8.5-10.1 mg/dL Low CA 8.2 LAB L501.2300 2.5-4.9 mg/dL Normal PHOS 3.3 LAB L501.5300 136-145 mmol/L NA Normal 138 LAB L501.5600 3.5-5.1 mmol/L K Normal 4.7 LAB L501.5900 98-107 mmol/L CL Normal 107 LAB L501.6100 21.0-32.0 mmol/L Normal CO2 22.0 Performed By: #### L500.3600, L500.4100 #### [facility] [place], [place], [id number] LIPID PROFILE Collected: 03/02/2018 Status: F Source: [place] 9:07 AM [facility] REPOSITORY TYPE CODE TESTS RESULT OUT OF RANGE REFERENCE UNITS LAB L501.4900 200 mg/dL High CHOL 227 Result Comment: <200 mg/dL Desirable 200-240 mg/dL Borderline >240 mg/dL High Risk LAB L501.5000 mg/dL Normal TRIG 158 Result Comment: The drugs N-Acetylcysteine and Metamizole may falsely depress this assay. Serum Triglycerides Reference Interval Normal <150 mg/dL Borderline high 150 - 199 mg/dL High 200 - 499 mg/dL Very High > or = 500 mg/dL LAB L501.6400 mg/dL Low HDL 39 Result Comment: The drugs N-Acetylcysteine and Metamizole may falsely depress this assay. Reference Range HDL <40 mg/dL Low HDL Cholesterol HDL >or= 60 mg/dL High HDL Cholesterol LAB L501.6500 0-130 mg/dL High LDL 156 LAB L501.6600 5-40 mg/dL Normal VLDL 32 Performed By: #### L500.3600, L500.4100 #### [facility] [address] [place], [address] VITAMIN D,25 HYDROXY Collected: 03/02/2018 Status: F Source: [place] 9:07 AM [facility] REPOSITORY TYPE CODE TESTS RESULT OUT OF RANGE REFERENCE UNITS LAB L506.1000 29.95-100.01 ng/mL Normal Vitamin D 73.3 25-OH Result Comment: Vitamin D 25(OH) Status Range Deficiency <20 ng/mL (50nmol/L) Insuffciency 20 - 30 ng/mL (50 - 75 nmol/L) Sufficiency 30 - 100 ng/mL (75 - 250 nmol/L) Toxicity >100 ng/mL (>250 nmol/L) Performed By: #### L506.1000 #### [facility] [address] [place], [address] CNPTOUTREACH Observed: 02/24/2018 Status: COMPLETED Source: [place] 12:00 AM [facility] REPOSITORY Patient Outreach (FAMPST) HERBER YUNG ([id number]) 1950 M Date Time Provider Department 02/24/18 RIYA SON FAMPST During your visit today, we recorded the following information about you: Allergies As of Date: 02/24/2018 Noted Allergy Reaction ADVIL (IBUPROFEN) 04/30/2011 14 - Other: See Comments Comments: Advil had caused BP to go high after just 2 days Date Reviewed: 09/01/2017 Reviewed by: Gaby Polanco Director Custom - Fully Assessed Visit Diagnosis:Medication management [Z79.899] Order(s):LIPID PANEL BASIC [SQLIPB] Order #: [id number] FUTURE Prescriptions as of 02/24/2018 Sig: RANITIDINE 150 MG TABLET Take 1 tablet by mouth twice * LOSARTAN 25 MG TABLET Take 1 tablet by mouth once d* METOPROLOL TARTRATE 25 MG TAB* Take 1 tablet by mouth every * COMPOUNDED PRESCRIPTION Lab order: Renal panel, CBC* TAMSULOSIN 0.4 MG CAPSULE Take 2 capsules by mouth nikolai* GLUCOSAMINE 750 MG-CHONDROITI* Take by mouth. VIT A 7,160 UNIT-VIT C 113 MG* Take by mouth. CHOLECALCIFEROL (VITAMIN D3) * Take 1 tablet by mouth once d* * OMEGA-3 FATTY ACIDS 500 MG CA* Take 2 capsules by mouth once* * MULTIVITAMIN TABLET Take 1 tablet by mouth once d* Problem List As Of Date 02/24/2018 Noted Resolved PURE HYPERCHOLESTEROLEM [E78.00] More... Essential hypertension [I10] IMPAIRED RENAL FUNCT NOS [N25.9] INVALID FOR* More... ESOPHAGEAL REFLUX [K21.9] INVALID FOR* More... OVERWEIGHT [E66.3] INVALID FOR* More... BPH with obstruction/lower urinary tract sympto*INVALID FOR* More... Benign Neoplasm of Colon [D12.6] INVALID FOR* More... Diverticulosis of Colon (without Mention of Hem*INVALID FOR* Special screening for malignant neoplasms, colo*INVALID FOR* Encounter Status:Closed by [employer], PRODUSER on 06/26/18 ALLERGIES ALLERGIES DATE TYPE / CODE NAME / CODE REACTION SEVERITY SOURCE 04/30/2011 DRUG IBUPROFEN OTHER: SEE C [facility] INGREDI/[address] [place] [address] [id number](SNOM Repository ED CT) ENCOUNTERS ENCOUNTERS ADMIT/DISCHARGE ACCOUNT ADMITTING ENCOUNTER LOCATION SOURCE NUMBER CLASS 09/02/2018/09/29/19 [id number] Ambulatory [address] Repository 08/26/2018 [id number] [facility] ing:LAB Repository 03/09/2018/03/19/20 [id number] Ambulatory [address] Repository 03/02/2018 [id number] PAYERS PAYERS ENCOUNTER GUARANTOR PAYER SUBSCRIBER SOURCE 08/26/2018 HERBER Romero HERBER Shah [id number] Insurance:AULTCAREPol MARTHEYDOB: Community [address] icy [place]: [id number] [id number] Repository [address]Lgg: 330) Date:3329-39-60ES [phone] () [address] [address]UD: 08/26/2018 Secondary NOT GIVENUNK Alyssa Insurance:SELF PAY [facility] Number: Effective Repository Date:2018-08-26 03/02/2018 Herber Romero Herber Shah [id number] Insurance:AULTCAREPol MartheyDOB[facility] [address] icy Number: [id number], [place] [id number] Repository [address]Rmt: (330) Date:9611-25-98IR [phone] () [address] [address]TQ: 03/02/2018 Secondary NOT GIVENUNK [place] Insurance:SELF PAY [facility] Number: Effective Repository Date:2018-03-02
== END ==
PROVIDERS: Family Provider Internal Medicine; PCP Internal Medicine; Referring Provider Internal Medicine; Visit Provider Internal Medicine
DX: I12.9 Hypertensive chronic kidney disease with stage 1 through stage 4 chronic kidney disease, or unspecified chronic kidney disease (principal); N18.3 Chronic kidney disease, stage 3 (moderate); E55.9 Vitamin D deficiency, unspecified; E78.00 Pure hypercholesterolemia, unspecified
CPT/HCPCS: 36415; 80053; 80061; 82306; 85027

== ENCOUNTER → 2019-03-01 10:41 | Outpatient (CLI) | payer OTHER, SELFPAY ==
[2019-03-01 11:40] LABS: Hematocrit 38.8 % (40-54); Hemoglobin 12.8 g/dl (13.0-16.5); Mean Corpuscular Hgb 31.1 pg (27.0-32.0); Mean Corpuscular Volume 94.2 fL (80-94); Platelet Count 303 K/mm3 (150-450); RBC Distribution Width CV 12.9 % (11.6-14.6); RBC Distribution Width SD 43.4 fl (35.1-43.9); Red Blood Count 4.12 M/mm3 (4.6-6.2); Scan Indicated on CBC? Y/N NO; White Blood Count 7.7 K/mm3 (4.4-11.0)
[2019-03-01 12:06] LABS: ALB/GLOB Ratio 0.9 RATIO (0.9-2.4); AST(SGOT) 17 U/L (15-37); Alanine Aminotransfer ALT/SGPT 25 U/L (16-61); Albumin, Serum 3.3 g/dL (3.2-5.0); Alkaline Phosphatase 125 U/L (45-117); Anion Gap 8 (5-15); BUN 48 mg/dL (7-18); BUN/Creat Ratio 18.3 RATIO (10-20); Calcium,Total 8.2 mg/dL (8.5-10.1); Chloride 107 mmol/L (98-107); Cholesterol 229 mg/dL (200); Creatinine, Serum 2.62 mg/dL (0.70-1.30); EST Glomerular Filtration Rate 26 mL/min (>60); Est Glom Filt Rate - Afr Amer 31 mL/min (>60); Globulin 3.8 g/dL (2.2-4.2); Glucose 91 mg/dL (74-106); High Density Lipoprotein 39 mg/dL; Potassium 4.7 mmol/L (3.5-5.1); Protein, Total 7.1 g/dL (6.4-8.2); Sodium Level 138 mmol/L (136-145); Triglycerides 186 mg/dL; Very Low Density Lipoprotein 37 mg/dL (5-40)
== END ==
PROVIDERS: Family Provider Internal Medicine; PCP Internal Medicine; Referring Provider Internal Medicine; Visit Provider Internal Medicine
DX: I12.9 Hypertensive chronic kidney disease with stage 1 through stage 4 chronic kidney disease, or unspecified chronic kidney disease (principal); N18.3 Chronic kidney disease, stage 3 (moderate); E78.00 Pure hypercholesterolemia, unspecified
CPT/HCPCS: 36415; 80053; 80061; 85027

== ENCOUNTER → 2019-08-30 10:31 | Outpatient (CLI) | payer OTHER, SELFPAY ==
[2019-08-30 11:17] LABS: Hematocrit 41.2 % (40-54); Hemoglobin 13.3 g/dL (13.0-16.5); Mean Corp Hgb Conc 32.3 g/dL (32-36); Mean Corpuscular Hgb 31.3 pg (27.0-32.0); Mean Corpuscular Volume 96.9 fL (80-94); Mean Platelet Vol. 9.6 fl (6.2-12.0); Platelet Count 293 K/mm3 (150-450); RBC Distribution Width CV 12.5 % (11.6-14.6); RBC Distribution Width SD 44.3 fl (35.1-43.9); Red Blood Count 4.25 M/mm3 (4.6-6.2); White Blood Count 8.2 K/mm3 (4.4-11.0)
[2019-08-30 11:51] LABS: Vitamin D,25 Hydroxy 45.8 ng/mL (29.95-100.01)
[2019-08-30 12:02] LABS: ALB/GLOB Ratio 0.7 RATIO (0.9-2.4); AST(SGOT) 12 U/L (15-37); Alanine Aminotransfer ALT/SGPT 24 U/L (16-61); Albumin, Serum 3.1 g/dL (3.2-5.0); Alkaline Phosphatase 144 U/L (45-117); Anion Gap 5 (5-15); BUN 45 mg/dL (7-18); BUN/Creat Ratio 16.5 RATIO (10-20); Calcium,Total 8.2 mg/dL (8.5-10.1); Chloride 108 mmol/L (98-107); Cholesterol 222 mg/dL (200); Creatinine, Serum 2.72 mg/dL (0.70-1.30); EST Glomerular Filtration Rate 25 mL/min (>60); Est Glom Filt Rate - Afr Amer 30 mL/min (>60); Globulin 4.2 g/dL (2.2-4.2); Glucose 93 mg/dL (74-106); High Density Lipoprotein 39 mg/dL; Potassium 4.6 mmol/L (3.5-5.1); Protein, Total 7.3 g/dL (6.4-8.2); Sodium Level 136 mmol/L (136-145); Triglycerides 177 mg/dL; Very Low Density Lipoprotein 35 mg/dL (5-40)
== END ==
PROVIDERS: Family Provider Internal Medicine; PCP Internal Medicine; Referring Provider Internal Medicine; Visit Provider Internal Medicine
DX: I10 Essential (primary) hypertension (principal); E78.00 Pure hypercholesterolemia, unspecified; E55.9 Vitamin D deficiency, unspecified; Z79.899 Other long term (current) drug therapy
CPT/HCPCS: 36415; 80053; 80061; 82306; 85027

== ENCOUNTER 2020-01-18 21:58 | Inpatient (IN) | payer MEDICARE, OTHER, SELFPAY ==
[2020-01-18] VITALS (9 sets, daily range): BP systolic 140–205; BP diastolic 75–116; PULSE 85–108; RESP 17–19; TEMP 36.2–37; O2SAT 95–98; BMI 26.6
--- NOTE | 2020-01-18 22:00 | EKG12_ITS ---
Test Reason : STROKE Blood Pressure : / mmHG Vent. Rate : 102 BPM Atrial Rate : 286 BPM P-R Int : 000 ms QRS Dur : 092 ms QT Int : 334 ms P-R-T Axes : 000 024 -08 degrees QTc Int : 435 ms Atrial flutter with variable A-V block Nonspecific ST abnormality Abnormal ECG Confirmed by ROSANNA RIOS ([id number]), purchase request editor ROGELIO HAN ([id number]) on 01/20/2020 3:03:59 PM Referred By: Rian Allen Confirmed By:ROSANNA RIOS
--- NOTE | 2020-01-18 22:00 | CT_ITS ---
STUDY: CT BRAIN WITHOUT CONTRAST REASON FOR EXAM: Male, 69 years old. right sided weakness, last known well at 9pm, Hx HTN and CKD RADIATION DOSAGE (If Supplied By Facility): CTDIvol = ( 44.99 ) mGy, DLP = ( 762.36 ) mGycm TECHNIQUE: Transaxial CT imaging of the brain was performed without administration of intravenous contrast material. Individualized dose optimization techniques were used for this CT. COMPARISON: No relevant priors. FINDINGS: Normal soft tissue structures. Normal calvarium. There is mild cerebral atrophy with widening of the extra-axial spaces and ventricular dilatation. There are areas of decreased attenuation within the white matter tracts of the supratentorial brain, consistent with microvascular disease changes. There is no intracranial hemorrhage. No acute territorial infarct. Chronic right basal ganglia lacunar infarct. Normal visualized paranasal sinuses. CT/Brain/Head without Contrast IMPRESSION: 1. No acute findings. 2. Chronic right basal ganglia lacunar infarct. 3. Microvascular ischemia. Atrophy. N.B. : The above information has been verbally conveyed by Eunice oRmero MD to Dr. Shanda MD, on 01/18/2020 22:18:16 (ET). Electronically Signed: Eunice Romero MD at 22:20 EDT Tel , Service support ,
--- NOTE | 2020-01-18 22:01 | CT_ITS ---
STUDY: CTA HEAD AND NECK WITH CONTRAST REASON FOR EXAM: Male, 69 years old. CVA,RT SIDED WEAKNESS,APHASIA,LAST SEEN WELL AT 9PM -- PT MOVED DURING SCAN RADIATION DOSAGE (If Supplied By Facility): CTDIvol = ( 20.37 ) mGy, DLP = ( 1538.25 ) mGycm TECHNIQUE: CT angiography was performed with a multi-detector CT scanner. Data acquisition was obtained from the skull base through the vertex following intravenous administration of IV 100mL Isovue-370. MIP images were reconstructed from the axial data set. Post-processing of the angiographic images was performed, with multiplanar reformation and 3D reconstruction. Individualized dose optimization techniques were used for this CT. COMPARISON: No relevant priors. FINDINGS: Evaluation of the vessels at the skull base is limited due to patient motion. Normal anterior cerebral arteries. No aneurysm, stenosis, or occlusion. Normal anterior communicating artery. Normal middle cerebral arteries bilaterally. Nonvisualized posterior communicating arteries. Normal basilar artery with a normal basilar bifurcation. The visualized bilateral superior cerebellar (SCA) arteries are normal. Normal bilateral P1, P2 and visualized P3 segments of the posterior cerebral arteries. There is no demonstrated aneurysm of the [place]. There is no demonstrated abnormality of the visualized brain. CTA NECK: This study is slightly limited due to patient motion. AORTIC ARCH: Normal visualized aortic arch. Normal origins of the brachiocephalic, left common carotid, and left subclavian arteries. RIGHT CAROTID ARTERIES: Evaluation of the distal carotid arteries is limited due to patient motion. Normal right common carotid artery (CCA). Normal right common carotid bulb. Normal origin of the right internal carotid (ICA) artery without stenosis. Normal origin of the right external carotid artery (ECA). LEFT CAROTID ARTERIES: Evaluation of the distal carotid arteries is limited due to patient motion. Normal left common carotid artery (CCA). Mild stenosis of the left carotid bulb. Mild stenosis of the origin of the left ICA. Normal origin of the left external carotid artery (ECA). VERTEBRAL ARTERIES: Normal right vertebral artery. Mild stenosis at the origin of the left vertebral artery. Distal cervical vertebral arteries are poorly demonstrated due to patient motion. 1.7 cm left thyroid nodule or complex cyst. Small nodules or complex cysts are also noted on the right. CT/CTA Head AND Neck W/ Contrast IMPRESSION: 1. Evaluation of the distal cervical region and skull base is limited due to patient motion. 2. Mild (<50%) stenosis of the left carotid bulb and proximal ICA. 3. Left thyroid nodule or complex cyst. Consider nonemergent evaluation with thyroid ultrasound. Electronically Signed: Eunice Romero MD at 22:57 EDT Tel , Service support ,
--- NOTE | 2020-01-18 22:01 | NURSING ---
NO OLD EKGS IN MUSE
--- NOTE | 2020-01-18 22:02 | ED.DCSUM_ITS ---
History of Present Illness Chief Complaint: Neuro S/Sx Informant: Patient, Significant Other, Job Training Specialist Onset: Today Context: Sudden Onset Timing: Continuous Quality and Location: Right Facial Droop, Slurred Speech, Receptive Aphasia, Difficulty with Ambulation Narrative: Patient is a 69-year-old male presenting with strokelike symptoms. Last known well was 9 PM. His saw him while he was working on the computer. She went downstairs to talk on the phone and then heard a thud around 9:20. She found him lying on the ground. Patient was unable to walk or speak properly. He had significant right-sided deficits. She called 911 and he was brought to the emergency room. Patient's blood sugar for EMS was 146. It does not telemetry patient takes any anticoagulants or has a history of stroke. Patient is unable to contribute to his history secondary to his aphasia. Past Medical History - Allergies and Home Meds Allergies/Adverse Reactions: Allergies No Known Allergies Allergy (Verified 01/18/20 22:18) Past Medical History: - - Hypertension, CKD 4 Surgical History: - - Carpal tunnel surgery Lives: Spouse/ Significant Other Review of Systems ROS: Unable to Obtain - Review of systems is limited secondary to patient's aphasia Neurological: Reports: Weakness - Diet, - - Aphasia STROKE Inital Vital Signs reviewed: Yes - NIHSS Initial 1a Level of Consciousness: 0 1b LOC Questions (Score 2 if aphasic/stupor): 2 1c LOC Commands (Only score 1st attempt): 1 2 Best Gaze (If aphasic, use reflexive mvmts.): 0 3 Visual: 0 4 Facial Palsy: 2 5 Motor Arm Right (UN = amputation/fusion): 4 5 Motor Arm Left: 0 6 Motor Leg Right: 4 6 Motor Leg Left: 0 7 Limb ataxia (Only + if out of proportion): 0 8 Sensory (Aphasia/stupor=0 or 1, coma=2): 0 9 Best Language: 2 10 Dysarthria (mute, coma=2, intubated=UN): 2 11 Extinction and Inattention (only scored if +): 1 Total Score: 18 2nd Follow up 1a Level of Consciousness: 0 1b LOC Questions (Score 2 if aphasic/stupor): 2 1c LOC Commands (Only score 1st attempt): 1 2 Best Gaze (If aphasic, use reflexive mvmts.): 0 3 Visual: 0 4 Facial Palsy: 2 5 Motor Arm Right (UN = amputation/fusion): 2 5 Motor Arm Left: 0 6 Motor Leg Right: 1 6 Motor Leg Left: 0 7 Limb ataxia (Only + if out of proportion): 0 8 Sensory (Aphasia/stupor=0 or 1, coma=2): 0 9 Best Language: 2 10 Dysarthria (mute, coma=2, intubated=UN): 2 11 Extinction and Inattention (only scored if +): 1 Total Score: 13 General: Well nourished, Well developed Head: Normocephalic, Atraumatic Eyes: Perrl, EOMI ENT: Moist mucous membranes, No rhinorrhea Neck: Supple, Nontender Cardiovascular: Regular rate, No murmurs, Irregular Respiratory: No distress, CTA bilaterally, Chest nontender Abdomen: Soft, Nontender, Nondistended, Normal bowel sounds Back: Nontender, Normal Inspection Extremities: Nontender, No edema Skin: Normal color, No rash Neurological: Alert, Weakness - Right-sided, Right side facial droop, - - Right- sided neglect, unintelligible speech, patient appears to have a receptive aphasia however can mimic physical commands. Negative for: Normal Gait Psychological: Normal affect Diagnostic/Tx/Re-eval Clinical Impression(s) from Imaging Studies Brain CT 01/18/20 22:00 IMPRESSION: 1. No acute findings. 2. Chronic right basal ganglia lacunar infarct. 3. Microvascular ischemia. Atrophy. N.B. : The above information has been verbally conveyed by Eunice Romero MD to Dr. Shanda MD, on 01/18/2020 22:18:16 (ET). Electronically Signed: Eunice Romero MD at 22:20 EDT Tel , Service support , ADDENDUM: 01/18/201 IMPRESSION: 1. No acute findings. 2. Chronic right basal ganglia lacunar infarct. 3. Microvascular ischemia. Atrophy. N.B. : The above information has been verbally conveyed by Eunice Romero MD to Dr. Shanda MD, on 01/18/2020 22:18:16 (ET). Electronically Signed: Eunice Romero MD at 22:20 EDT Tel , Service support , Head/Neck CTA 01/18/20 22:01 IMPRESSION: 1. Evaluation of the distal cervical region and skull base is limited due to patient motion. 2. Mild (<50%) stenosis of the left carotid bulb and proximal ICA. 3. Left thyroid nodule or complex cyst. Consider nonemergent evaluation with thyroid ultrasound. Electronically Signed: Eunice Romero MD at 22:57 EDT Tel , Service support , Chest X-Ray 01/18/20 23:00 IMPRESSION: Normal x-ray examination of the chest. Electronically Signed: Eunice Romero MD at 23:17 EDT Tel , Service support , Laboratory Data 01/18/20 01/18/20 01/18/20 22:18 22:18 22:18 WBC 13.7 H RBC 4.02 L Hgb 12.9 L Hct 38.9 L MCV 96.8 H MCH 32.1 H MCHC 33.2 RDW Std Deviation 46.5 H RDW Coeff of Steve 13.1 Plt Count 291 MPV 9.8 Immature Gran % (Auto) 0.400 Neut % (Auto) 59.5 Lymph % (Auto) 27.2 Chambers % (Auto) 8.7 Eos % (Auto) 3.5 Baso % (Auto) 0.7 Absolute Neuts (auto) 8.2 H Absolute Lymphs (auto) 3.74 Nucleated RBC % 0 PT 12.7 INR 1.0 APTT 26.0 Sodium 137 Potassium 4.0 Chloride 110 H Carbon Dioxide 21.0 Anion Gap 6 BUN 63 H Creatinine 2.99 H Estim Creat Clear Calc 24.87 Est GFR (MDRD) Af Amer 27 L Est GFR (MDRD) Non-Af 22 L BUN/Creatinine Ratio 21.1 H Glucose 164 H Calcium 8.0 L Troponin I < 0.015 Chest X-Ray - ED: 1 View, Read by ED Physician, Read by Radiologist, No Acute Disease - Rhythm Strip Rhythm Strip: A flutter Rate: 102 Ectopy: None - EKG Initial EKG Interpretation: Atrial Flutter, - - Atrial flutter with variable AV block at a rate of [address] segments - Medical Decision Making Stroke Team Activated: Yes Reviewed Inclusion/Exclusion criteria: Yes Was Patient considered for Endovascular Intervention?: Yes IV Alteplase (t-PA) Administered: Yes No contraindications for IV Alteplase (t-PA) administration.: Yes Alteplase (t-PA) risks, benefits, alternative discussed: Yes Not given: Patient refusal: No Patient is evaluated for acute onset of right-sided weakness and expressive aphasia. Last known well was approximate 1 hour prior to arrival. Patient does not have a history of stroke nor atrial flutter. Fingerstick glucose was normal per EMS. Initial NIH is performed in the EMS cot and patient is sent emergently over to CT. Repeat page performed with tele-neurology and a more controlled setting is 13. I suspect this is just a more accurate NIH and not of improving neurologic status. Because of patient significant deficits and new onset of atrial flutter I do think an emergent CTA is indicated because he is at high risk of large vessel occlusion. This is negative for a large vessel occlusion. Patient does fit criteria for TPA. I did discuss risk and benefits at length with patient and his who agree to go ahead with the TPA. As patient does not require clot retrieval he is offered transfer to [facility] or another hospital of his choice versus staying at our hospital. Patient elects to stay at [facility]. Patient is given IV labetalol and then started on nicardipine drip for blood pressure control in the emergency room to keep his systolic under 185.His work- up is significant for mild leukocytosis with unknown significance. His creatinine is elevated 2.99 but this is near his baseline. Patient is started on maintenance fluids as he did receive a contrast bolus. While he is in new onset atrial flutter his troponin is normal. Case is discussed with admitting physician, Dr. Lopez, agreeable with admission. Patient leaving to the ICU as he did receive TPA. He will receive a tele-neurology consult tomorrow morning. Family is aware that we had tele-neurology here and not in person neurologist. Critical care time (excluding procedures): Discussing w/Patient &/or Family/House Mover Supervisor - 45 minutes of critical care time for care of acute ischemic stroke requiring TPA, multiple repeat neurologic evaluations, consultation with neuroradiology and neurology and extensive discussion with patient, his and son about final disposition and whether to transfer or not. ED Disposition - Plan for ED Patient: Disposition: Acute Care Hospital [facility] Diagnosis: Aphasia due to acute stroke, Right sided weakness, Atrial flutter, Chronic kidney disease, Hypertension
--- NOTE | 2020-01-18 22:26 | ED.RN ---
Dr. Powers is putting in orders for TPA, Pharmacy aware.
[2020-01-18 22:31] LABS: Absolute Lymphocyte Count 3.74 X10^3/uL (0.83-4.51); Absolute Neutrophil Count 8.2 X10^3/uL (2.0-7.7); Basophil# 0.09 X10^3/uL; Basophil% 0.7 % (0-1); Eosinophil# 0.48 X10^3/uL; Eosinophils% 3.5 % (0-5); Hematocrit 38.9 % (40-54); Hemoglobin 12.9 g/dL (13.0-16.5); Lymphocyte # 3.74 X10^3/ul (4.0); Lymphocyte % 27.2 % (19-41); Mean Corp Hgb Conc 33.2 g/dL (32-36); Mean Corpuscular Hgb 32.1 pg (27.0-32.0); Mean Corpuscular Volume 96.8 fL (80-94); Mean Platelet Vol. 9.8 fl (6.2-12.0); Monocyte% 8.7 % (0-10); NRBC Flagged by Analyzer 0 % (0-5); Neutrophil # 8.17 X10^3/uL (2.7-7.7); Neutrophil % 59.5 % (47-70); Platelet Count 291 K/mm3 (150-450); RBC Distribution Width CV 13.1 % (11.6-14.6); RBC Distribution Width SD 46.5 fl (35.1-43.9); Red Blood Count 4.02 M/mm3 (4.6-6.2); White Blood Count 13.7 K/mm3 (4.4-11.0)
[2020-01-18 22:39] LABS: Prothrombin Time (Protime)PT. 12.7 SECONDS (11.7-14.9)
[2020-01-18 22:48] LABS: Anion Gap 6 (5-15); BUN 63 mg/dL (7-18); BUN/Creat Ratio 21.1 RATIO (10-20); Chloride 110 mmol/L (98-107); Creatinine, Serum 2.99 mg/dL (0.70-1.30); EST Glomerular Filtration Rate 22 mL/min (>60); Est Glom Filt Rate - Afr Amer 27 mL/min (>60); Estimated Creatinine Clearance 24.87 ml/min; Glucose 164 mg/dL (74-106); Sodium Level 137 mmol/L (136-145)
--- NOTE | 2020-01-18 23:00 | RAD_ITS ---
STUDY: X-RAY CHEST REASON FOR EXAM: Male, 69 years old. CVA work up, weakness TECHNIQUE: Single AP portable view of the chest. COMPARISON: None. FINDINGS: The lungs are clear and expanded. There is no demonstrated pleural abnormality. Normal size heart. Normal mediastinum and shelby. Normal visualized pulmonary arteries. Normal visualized aortic arch and descending thoracic aorta. Normal visualized thoracic spine. Normal visualized ribs, clavicles, and shoulders. There is no demonstrated abnormality of the visualized soft tissue structures of the upper abdomen. RAD/Chest 1 View IMPRESSION: Normal x-ray examination of the chest. Electronically Signed: Eunice Romero MD at 23:17 EDT Tel , Service support ,
[2020-01-18] MEDS: 0.9% Normal Saline 1,000 ML 100 ML IV (23:14)
[2020-01-19] VITALS (40 sets, daily range): BP systolic 111–177; BP diastolic 66–107; PULSE 76–115; RESP 10–22; TEMP 36.2–37.4; O2SAT 95–99; BMI 25.4; BMI 25.5
--- NOTE | 2020-01-19 00:25 | HP.PCM_ITS ---
Problem List (1) Aphasia due to acute stroke Status: Acute (2) Right sided weakness Status: Acute History of Present Illness Date of Admission: 01/19/20 Chief Complaint: Aphasia, right-sided weakness The patient is a 69 year old M who was seen in the emergency room at [facility] after being brought in by squad after being found on the floor of his residence by his late last night. Last time he was seen well was 9 PM, stated that she saw him working on his computer and she went downstairs to talk on the phone and heard a thud around 9:20 PM and found him lying on the floor. Patient was not able to walk or speak properly, she called the squad to bring patient to the ER. Patient's blood sugar per EMS was 146. Patient was not able to provide any information due to expressive aphasia. Patient's medical history was obtained from his family. Patient's significant medical history includes chronic kidney disease-etiology unknown and hypertension. A stroke team was called, patient was taken to CT scanner for a CTA of his head and neck and a CT of his brain-these tests were all unremarkable, tele-neurology saw the patient and advised administration of TPA and the patient and the patient's family agreed. Labs obtained on the patient showed a white blood cell count of 13.7, creatinine was 2.99, BUN was 63 and troponin was 0.015. Patient's glucose was 164. EKG showed a tachycardia, before certain complexes I could not identify a P wave so I was not sure whether this could be atrial fibrillation. Electronic readout of the EKG was read out as atrial flutter-I am not sure I agree with this read out. I had a conversation with the patient's son who was the nurse at [facility] and the patient finally decided that he wanted to stay here in the hospital and understood that he would be seen tomorrow by another tele- neurologist. Patient will be admitted to ICU for acute left-sided CVA, I believe the distribution of the stroke will be the left MCA. Past Medical History Allergies No Known Allergies Allergy (Verified 01/18/20 22:18) Home Medications: Ambulatory Orders Medication Instructions Recorded Cholecalciferol (Vitamin D3) 2,000 unit PO DAILY 01/18/20 [Vitamin D3] Losartan Potassium [Cozaar] 25 mg PO DAILY 01/18/20 Metoprolol Tartrate [Lopressor 25 mg PO DAILY 01/18/20 (Beta Phil)] Omeprazole 20 mg PO DAILY 01/18/20 Surgical History: - - Carpal tunnel surgery, biceps tendon surgery Psychiatric History: No pertinent psych hx Lives: Spouse/ Significant Other Smoking Status: Former smoker Tobacco Use: Non-smoker Alcohol: Occasional Drugs: None - *Family History Maternal History Items: Stroke Paternal History Items: Cancer - Lung cancer Review of Systems Comment: Review of systems was unable to be obtained from the patient due to e xpressive aphasia, information was provided by the patient's family members VTE Information - Inpt Only VTE Present on Admission: No VTE Mechan Device Prophylaxis: None VTE Pharm Prophylaxis ordered?: Yes Patient Problems: Active and Suspected Problems Aphasia due to acute stroke (Acute) Right sided weakness (Acute) - Physical Exam Vitals/I&O's: Vital Signs Temp Pulse Resp BP Pulse Ox 97.2 F L 114 H 19 H 174/81 H 97 01/19/20 00:23 01/19/20 00:23 01/19/20 00:23 01/19/20 00:23 01/19/20 00:23 Oxygen Flow Rate (L/min) 2 Oxygen Delivery Method Room Air Weight: 89 kg Body Mass Index (BMI) 26.6 Finger Stick Blood Glucose 173 Intake and Output for Last 24 Hours 01/17/20 01/18/20 01/19/20 23:59 23:59 23:59 Intake Total 73.77 / 73.77 Balance 73.77 / 73.77 General: Alert, No apparent distress, - - Patient has expressive aphasia and is able to say a few words, is able to say yes and no HEENT: Atraumatic, PERRLA, EOMI, Normocephalic Oral: Moist Mucosa Neck: Supple, No JVD, Negative Carotid Bruits, Trachea Midline, Thyroid Normal Size and Texture Lungs: Clear to auscultation, Normal air movement, No rhonchi, No wheeze, No rales Cardiovascular: Regular rate, Regular Rhythm, Normal S1, Normal S2, No murmurs, PMI Normal, No rub noted, No Gallop, - - Occasional ectopic activity is noted which correspond on the monitor to PAC's Abdomen: Bowel Sounds Present, Soft, Non Tender, Non-Distended, No hernias noted Extremities: No clubbing, No cyanosis, No edema, Capillary Refill Less than 3 Seconds Skin: No rashes, No breakdown Musculoskeletal: No Tenderness to Palpation of Joints or Extremities Neurological: Cranial nerves II-XII grossly intact, Neuro grossly intact, Sensory exam intact to light touch and pain, - - Patient has expressive aphasia, he is able to say a few words but not able to string sentences together, patient exhibits some right upper extremity weakness as compared to the left upper extremity, patient was not ambulated Psych/Mental Status: Normal Affect, Appropriate, - - Patient was alert and appropriate, he was unable to answer questions due to expressive aphasia Laboratory Results 01/18/20 22:18: WBC 13.7 H, RBC 4.02 L, Hgb 12.9 L, Hct 38.9 L, MCV 96.8 H, MCH 32.1 H, MCHC 33.2, RDW Std Deviation 46.5 H, RDW Coeff of Steve 13.1, Plt Count 291, MPV 9.8, Immature Gran % (Auto) 0.400, Neut % (Auto) 59.5, Lymph % (Auto) 27.2, [place] % (Auto) 8.7, Eos % (Auto) 3.5, Baso % (Auto) 0.7, Absolute Neuts (auto) 8.2 H, Absolute Lymphs (auto) 3.74, Nucleated RBC % 0 01/18/20 22:18: PT 12.7, INR 1.0, APTT 26.0 01/18/20 22:18: Sodium 137, Potassium 4.0, Chloride 110 H, Carbon Dioxide 21.0, Anion Gap 6, BUN 63 H, Creatinine 2.99 H, Estim Creat Clear Calc 24.87, Est GFR (MDRD) Af Amer 27 L, Est GFR (MDRD) Non-Af 22 L, BUN/Creatinine Ratio 21.1 H, Glucose 164 H, Calcium 8.0 L, Troponin I < 0.015 Current Medications Acetaminophen (Tylenol) 650 mg PO .X1 PRN PRN Reason: Temp > 99.6 F Diphenhydramine HCl (Benadryl) 50 mg IV .X1 PRN PRN Reason: Allergic Reaction Stop: 01/20/20 22:26 Epinephrine HCl () 0.3 mg IM .X1 PRN PRN Reason: Allergic Reaction Stop: 01/20/20 22:26 Sodium Chloride () 1,000 mls @ 100 mls/hr IV .Q10H JONAH Last Admin: 01/18/20 23:14 Dose: 100 mls/hr Documented by: Famotidine 20 mg/ Sodium (Chloride) 10 mls @ 300 mls/hr IV .X1 PRN PRN Reason: Allergic Reaction Stop: 01/20/20 22:26 Nicardipine/Dextrose (Cardene-Dex 20 Mg/200 Ml Soln) 20 mg in 200 mls @ 50 mls/hr IV .Q4H PRN; Protocol PRN Reason: See Instructions Last Admin: 01/19/20 00:06 Dose: 5 mg/hr, 50 mls/hr Documented by: Labetalol HCl (Trandate) 10 mg IV X1 PRN PRN Reason: BLOOD PRESSURE Last Admin: 01/18/20 23:06 Dose: 10 mg Documented by: Methylprednisolone (Solu-Medrol) 125 mg IV .X1 PRN PRN Reason: Allergic Reaction Stop: 01/20/20 22:26 Assessment/Plan All Active Problems Aphasia due to acute stroke (Acute) Right sided weakness (Acute) #1 acute left MCA ischemic stroke-patient received TPA in the emergency room, he will be admitted to ICU and seen by critical care, he will need a consultation by tele-neurology tomorrow, MRI of the brain was ordered for tomorrow, echoca rdiogram will be obtained, patient will be seen by PT, OT, and speech therapy. Patient will be n.p.o. for now, he will need placed on a statin and possibly aspirin and Plavix when he is able to take oral intake. #2 essential hypertension-patient's blood pressure will be monitored #3 cardiac arrhythmias-possibly atrial fibrillation, frequent PACs, or atrial flutter-patient will be monitored, echocardiogram will be obtained #4 reactive leukocytosis secondary to acute stroke #5 chronic kidney disease stage IV-etiology unclear, patient has a history of this, patient has seen Dr. Quinn #6 hyperglycemia-BMP will be rechecked tomorrow, hemoglobin A1c was ordered Inpatient E&M: 20408 Init Hosp L3
--- NOTE | 2020-01-19 00:43 | ECHOD_ITS ---
Reason For Study: TIA/CVA Procedure This was a 2D Doppler, Color Flow transthoracic echocardiogram. Exam performed portable in patient room. Left Ventricle Normal size and thickness. The estimated ejection fraction is 75 %. Unable to assess diastolic dysfunction due to arrhythmia. No regional wall motion abnormalities noted. Right Ventricle Normal size and thickness. Normal systolic function. Atria Normal left atrium. Normal right atrium. Normal atrial septum. Bubble contrast study negative for right to left interatrial shunt. Mitral Valve Mild diffuse mitral valve thickening. Moderate mitral annular calcification extending into the posterior leaflet. Trivial mitral valve insufficiency. Tricuspid Valve Normal tricuspid valve. Trivial tricuspid valve insufficiency. Right ventricular systolic pressure estimated to be 48 mmHg. Moderate pulmonary hypertension. Aortic Valve Trisinus/trileaflet aortic valve. Normal aortic valve. Pulmonic Valve Normal pulmonic valve. Great Vessels Normal aortic root. Normal arch. Normal inferior vena cava. Inferior vena cava collapse with sniff. Pericardium/Pleural No pericardial effusion. Medication Performed a rapid injection of agitated mix of 9 cc saline and 1cc air to assess for atrial septal defect. MMode/2D Measurements & Calculations LVIDd: 4.1 cm IVSd: 1.1 cm Ao root diam: 3.9 cm LVIDs: 2.3 cm LVPWd: 1.3 cm RVDd: 3.6 cm FS: 43.2 % LAV(MOD-bp): 71.2 ml LVAd ap4: 23.9 cm2 SV(MOD-sp4): 40.5 ml LAV(MOD-bp) Indexed: 33.7 ml/m2 EDV(MOD-sp4): 62.5 ml LAV(MOD-sp2): 91.1 ml EDV(sp4-el): 65.3 ml LAV(MOD-sp4): 53.4 ml LVAs ap4: 12.9 cm2 ESV(MOD-sp4): 22.0 ml ESV(sp4-el): 22.1 ml EF(MOD-sp4): 64.8 % EF(sp4-el): 66.2 % SV(sp4-el): 43.2 ml LA A4 area: 19.7 cm2 LA dimension(2D): 4.4 cm RA A4 area: 13.7 cm2 Doppler Measurements & Calculations Ao V2 max: 120.2 cm/sec LV V1 max: 108.2 cm/sec TR max jeffery: 270.7 cm/sec Ao max P.8 mmHg LV V1 max P.8 mmHg TR max P.4 mmHg Interpretation Summary The estimated ejection fraction is 75 %. Unable to assess diastolic dysfunction due to arrhythmia. Bubble contrast study negative for right to left interatrial shunt. Trivial mitral valve insufficiency. Trivial tricuspid valve insufficiency. Right ventricular systolic pressure estimated to be 48 mmHg. Moderate pulmonary hypertension. Patient appears to be in atrial fibrillation. There is no comparison study available. Ordering Physician: Rian Allen Referring Physician: RIYA SON Performed By: Beverly Antunez, ANA, RVT
--- NOTE | 2020-01-19 06:20 | PCM.CON.CC ---
Reason for Consult Date of Consultation: 01/19/20 Reason for Consultation: Acute CVA status post TPA History of Present Illness: The patient is a 69-year-old male, with a history as outlined below, who presented to the emergency department on January 17 with a right-sided facial droop, dysarthria and gait instability. On presentation to the emergency department, the patient was noted to be afebrile but was initially hypertensive with a blood pressure of 194/75. He was maintaining appropriate oxygen saturations on room air. Laboratory evaluation revealed a mildly elevated white blood cell count of 14,000. Coagulation profile was within normal limits. Chemistry profile was notable for a creatinine of 2.99. Troponin was negative. CT head revealed no acute findings. CTA head and neck was also completed and revealed limited evaluation of the distal cervical region due to motion artifact. There was mild stenosis of the left carotid bulb and proximal ICA. Neurology consultation was obtained. The patient was noted to be in new onset atrial flutter. NIH score was noted to be 10 by neurology. TPA was recommended. Following administration of lytic therapy, the patient was transferred to the medical intensive care unit for further management. Past Medical History Allergies No Known Allergies Allergy (Verified 01/18/20 22:18) Home Medications: Ambulatory Orders Medication Instructions Recorded Cholecalciferol (Vitamin D3) 2,000 unit PO DAILY 01/18/20 [Vitamin D3] Losartan Potassium [Cozaar] 25 mg PO DAILY 01/18/20 Metoprolol Tartrate [Lopressor 25 mg PO DAILY 01/18/20 (Beta Phil)] Omeprazole 20 mg PO DAILY 01/18/20 Surgical History: - - Carpal tunnel surgery, biceps tendon surgery Psychiatric History: No pertinent psych hx Lives: Spouse/ Significant Other Smoking Status: Former smoker Tobacco Use: Non-smoker Alcohol: Occasional Drugs: None - *Family History Maternal History Items: Stroke Paternal History Items: Cancer - Lung cancer Review of Systems Constitutional: Denies: Chills, Fever Eyes: Denies: Blurred vision, Double vision HEENT: Reports: Dysphasia Cardiovascular: Denies: Chest Pain, Palpitations Respiratory: Denies: Cough, Shortness of breath at rest, Sputum production Gastrointestinal: Denies: Abdominal Pain, Nausea, Vomiting Genitourinary: Denies: Dysuria Musculoskeletal: Denies: Joint Pain, Joint Tenderness Skin: Denies: Rash, Wounds Neurological: Reports: Change in Speech, Slurred speech, Incoordination Psychiatric: Denies: Anxiety, Depression, Homicidal Ideations, Suicidal Ideations Hematologic/ Lymphatic: Denies: Easy Bruising, Easy Bleeding Patient Problems: Active and Suspected Problems Aphasia due to acute stroke (Acute) Right sided weakness (Acute) Objective: The patient's most recent lab work, culture data and imaging studies have all been personally reviewed. - Physical Exam Vitals/I&O's: Vital Signs Temp Pulse Resp BP Pulse Ox 99.2 F H 89 13 139/90 H 98 01/19/20 06:00 01/19/20 06:00 01/19/20 06:00 01/19/20 06:00 01/19/20 06:00 Oxygen Flow Rate (L/min) 2 Oxygen Delivery Method Room Air Weight: 192 lb 14.472 oz Body Mass Index (BMI) 25.4 Finger Stick Blood Glucose 173 Intake and Output for Last 24 Hours 01/17/20 01/18/20 01/19/20 23:59 23:59 23:59 Intake Total 73.77 / 73.77 784.17 / 784.17 Output Total 970 / 970 Balance 73.77 / 73.77 -185.83 / -185.83 General: Alert, Cooperative HEENT: Atraumatic, Normocephalic Oral: No Gingival or Mucosal Lesions/ Ulcerations Neck: Supple, No Nodes, Trachea Midline Lungs: Normal air movement, No rhonchi, No wheeze, No rales Cardiovascular: Normal S1, Normal S2, Irregular Rate Abdomen: Bowel Sounds Present, Soft, Non Tender Extremities: No clubbing, No cyanosis, No edema Skin: No breakdown Musculoskeletal: No Muscle Wasting Lymphatic: No Cervical, Supraclavicular, or Inguinal Adenopathy Neurological: Cranial nerves II-XII grossly intact, - - Mild expressive aphasia Psych/Mental Status: Normal Affect, Appropriate Labs (Last 48 Hours) 01/18/20 01/18/20 01/18/20 22:18 22:18 22:18 WBC 13.7 H RBC 4.02 L Hgb 12.9 L Hct 38.9 L MCV 96.8 H MCH 32.1 H MCHC 33.2 RDW Std Deviation 46.5 H RDW Coeff of Steve 13.1 Plt Count 291 MPV 9.8 Immature Gran % (Auto) 0.400 Neut % (Auto) 59.5 Lymph % (Auto) 27.2 Drew % (Auto) 8.7 Eos % (Auto) 3.5 Baso % (Auto) 0.7 Absolute Neuts (auto) 8.2 H Absolute Lymphs (auto) 3.74 Nucleated RBC % 0 PT 12.7 INR 1.0 APTT 26.0 Sodium 137 Potassium 4.0 Chloride 110 H Carbon Dioxide 21.0 Anion Gap 6 BUN 63 H Creatinine 2.99 H Estim Creat Clear Calc 24.87 Est GFR (MDRD) Af Amer 27 L Est GFR (MDRD) Non-Af 22 L BUN/Creatinine Ratio 21.1 H Glucose 164 H Calcium 8.0 L Troponin I < 0.015 Clinical Impression(s) from Imaging Studies Brain CT 01/18/20 22:00 IMPRESSION: 1. No acute findings. 2. Chronic right basal ganglia lacunar infarct. 3. Microvascular ischemia. Atrophy. N.B. : The above information has been verbally conveyed by Eunice Romero MD to Dr. Shanda MD, on 01/18/2020 22:18:16 (ET). Electronically Signed: Eunice Romero MD at 22:20 EDT Tel , Service support , ADDENDUM: 01/18/202226 IMPRESSION: 1. No acute findings. 2. Chronic right basal ganglia lacunar infarct. 3. Microvascular ischemia. Atrophy. N.B. : The above information has been verbally conveyed by Eunice Romero MD to Dr. Shanda MD, on 01/18/2020 22:18:16 (ET). Electronically Signed: Eunice Romero MD at 22:20 EDT Tel , Service support , Head/Neck CTA 01/18/20 22:01 IMPRESSION: 1. Evaluation of the distal cervical region and skull base is limited due to patient motion. 2. Mild (<50%) stenosis of the left carotid bulb and proximal ICA. 3. Left thyroid nodule or complex cyst. Consider nonemergent evaluation with thyroid ultrasound. Electronically Signed: Eunice Romeor MD at 22:57 EDT Tel , Service support , Chest X-Ray 01/18/20 23:00 IMPRESSION: Normal x-ray examination of the chest. Electronically Signed: Eunice Romero MD at 23:17 EDT Tel , Service support , Current Medications Acetaminophen (Tylenol) 650 mg PO .X1 PRN PRN Reason: Temp > 99.6 F Diphenhydramine HCl (Benadryl) 50 mg IV .X1 PRN PRN Reason: Allergic Reaction Stop: 01/20/20 22:26 Epinephrine HCl () 0.3 mg IM .X1 PRN PRN Reason: Allergic Reaction Stop: 01/20/20 22:26 Heparin Sodium (Porcine) (Heparin Na) 5,000 unit SC Q12 JONAH Sodium Chloride () 1,000 mls @ 100 mls/hr IV .Q10H JONAH Last Infusion: 01/19/20 05:36 Dose: 100 mls/hr Documented by: Famotidine 20 mg/ Sodium (Chloride) 10 mls @ 300 mls/hr IV .X1 PRN PRN Reason: Allergic Reaction Stop: 01/20/20 22:26 Nicardipine/Dextrose (Cardene-Dex 20 Mg/200 Ml Soln) 20 mg in 200 mls @ 50 mls/hr IV .Q4H PRN; Protocol PRN Reason: See Instructions Sodium Chloride () 1,000 mls @ 100 mls/hr IV .Q10H JONAH Last Admin: 01/19/20 01:02 Dose: Not Given Documented by: Sodium Chloride () 250 mls @ 15 mls/hr IV .[id number] PRN PRN Reason: Saline Flush Sodium Chloride () 250 mls @ 15 mls/hr IV .[id number] PRN PRN Reason: Additional IVPB Infusion Labetalol HCl (Trandate) 10 mg IV X1 PRN PRN Reason: BLOOD PRESSURE Last Admin: 01/18/20 23:06 Dose: 10 mg Documented by: Methylprednisolone (Solu-Medrol) 125 mg IV .X1 PRN PRN Reason: Allergic Reaction Stop: 01/20/20 22:26 Morphine Sulfate () 2 mg IV Q3H PRN PRN PRN Reason: Pain Score 1-10/10 Sodium Chloride () 10 - 40 ml IV UD PRN PRN Reason: SALINE FLUSH Assessment/Plan Active and Suspected Problems Aphasia due to acute stroke (Acute) Right sided weakness (Acute) RECOMMENDATIONS: 1. Continue routine post TPA management per protocol. 2. Allow for permissive hypertension. 3. Obtain echocardiogram 4. Repeat head imaging tonight. 5. PT/OT/speech evaluations tomorrow. IMPRESSIONS: 1. Acute ischemic CVA status post TPA Continue routine monitoring post TPA per protocol. Allow for permissive hypertension. Awaiting echocardiogram. Repeat head imaging will be due tonight. Patient can be evaluated by PT/OT tomorrow. 2. New onset atrial flutter/fibrillation This appears to be new for the patient. However, he is currently rate controlled. Echocardiogram is pending. Consider cardiology consultation. This note was generated with [employer] dictation software. It may contain incorrect words, spelling, and punctuation that were not noted in checking the note before signing. Inpatient E&M: 09797 Init Hosp L3
[2020-01-19] MEDS: 0.9% Normal Saline 1,000 ML 100 ML IV ×2 (09:00→18:36)
--- NOTE | 2020-01-19 13:40 | CASEMGMT ---
Addendum entered by Saeed Wade 01/19/20 13:57: [facility] Declination to transfer form placed on pt's chart and copy placed in pt's folder by RN. Original Note: RN LEONARDO ASSESSMENT Admitting Dx: Acute Ischemic CVA. Pt with expressive aphasia. Call placed to pt's , Marilu, and assessment completed. Care providers, pharmacy, and demographics verified/updated at this time. PCP: Dr Crook Specialists: Sees specialists @ [facility] Preferred Pharmacy: [facility] Insurance: [facility] A only, [employer], [place] Benefits. VA is not listed on demographics. Call placed to registration and they were made aware. Prescription Benefit: Yes Living Will/HPOA: states pt has LW and HCPOA papers and that she is the primary Healthcare POA. Copies are not on file @ [facility] and aware. LNOK: Living Arrangements: Lives in split-level home. 6 steps to enter and approx 6 steps b/w each floor. states bedroom and both bathrooms are on upper level. Pt was independent prior to CVA. Transportation: Pt states drove prior to CVA. also drives and denies transportation concerns. DME: Has no DME HHC/SNF: No history of either. Discussed option for pt to transfer to [facility]. declines to have pt transferred and wishes for hospitalization to be billed through [facility]. Declination to transfer form faxed to [facility]Transfer center at this time along with clinicals. Confirmation via fax received that fax went through successfully. Advised to ask for CM if any questions/concerns/needs arise. Voices understanding. PLAN: TBD. Pt remains on bedrest. Will need PT/OT/ST evals completed. CM to follow for discharge planning and for any DME needs. Christina COVARRUBIAS RN CM
--- NOTE | 2020-01-19 15:43 | PN_ITS ---
<Gagan Alonso - Last Filed: 01/19/20 15:43> Patient Problems: Active and Suspected Problems Aphasia due to acute stroke (Acute) Right sided weakness (Acute) Reason for Visit: stroke s/p tpa Subjective: pt with ongoing aphasia, difficulty with word finding. found to have afib on ekg at presentation, still in afib on monitor with rate <100. pt resting comfortably in bed nad. pt feels his speech is improving. He has no focal weakness, difficulty swallowing, vision/hearing changes, or parasthesias. no palpitations, no CP. Vitals/I&O's: Vital Signs Temp Pulse Resp BP Pulse Ox 99.1 F 85 13 166/75 H 97 01/19/20 12:00 01/19/20 14:00 01/19/20 14:00 01/19/20 14:00 01/19/20 14:00 Oxygen Flow Rate (L/min) 2 Oxygen Delivery Method Room Air Weight: 192 lb 14.472 oz Body Mass Index (BMI) 25.4 Finger Stick Blood Glucose 173 Intake and Output for Last 24 Hours 01/17/20 01/18/20 01/19/20 23:59 23:59 23:59 Intake Total 73.77 / 73.77 1409.17 / 1409.17 Output Total 1545 / 1545 Balance 73.77 / 73.77 -135.83 / -135.83 General: Alert, Oriented x3, Cooperative HEENT: Atraumatic, PERRLA, EOMI, Normocephalic Neck: Supple, No JVD, Negative Carotid Bruits Lungs: Clear to auscultation, Normal air movement Cardiovascular: No murmurs, Irregular Rate, Tachycardic Abdomen: Bowel Sounds Present, Soft, Non Tender Extremities: No edema, Capillary Refill Less than 3 Seconds Skin: No rashes, No breakdown Musculoskeletal: No Tenderness to Palpation of Joints or Extremities Neurological: Cranial nerves II-XII grossly intact, - - some difficulty with word finding no slurring Psych/Mental Status: Normal Affect, Appropriate, Alert and oriented to time, place, person, mood and affect Laboratory Results 01/18/20 22:18: WBC 13.7 H, RBC 4.02 L, Hgb 12.9 L, Hct 38.9 L, MCV 96.8 H, MCH 32.1 H, MCHC 33.2, RDW Std Deviation 46.5 H, RDW Coeff of Steve 13.1, Plt Count 291, MPV 9.8, Immature Gran % (Auto) 0.400, Neut % (Auto) 59.5, Lymph % (Auto) 27.2, Snyder % (Auto) 8.7, Eos % (Auto) 3.5, Baso % (Auto) 0.7, Absolute Neuts (auto) 8.2 H, Absolute Lymphs (auto) 3.74, Nucleated RBC % 0 01/18/20 22:18: PT 12.7, INR 1.0, APTT 26.0 01/18/20 22:18: Sodium 137, Potassium 4.0, Chloride 110 H, Carbon Dioxide 21.0, Anion Gap 6, BUN 63 H, Creatinine 2.99 H, Estim Creat Clear Calc 24.87, Est GFR (MDRD) Af Amer 27 L, Est GFR (MDRD) Non-Af 22 L, BUN/Creatinine Ratio 21.1 H, Glucose 164 H, Calcium 8.0 L, Troponin I < 0.015 Current Medications Acetaminophen (Tylenol) 650 mg PO .X1 PRN PRN Reason: Temp > 99.6 F Diphenhydramine HCl (Benadryl) 50 mg IV .X1 PRN PRN Reason: Allergic Reaction Stop: 01/20/20 22:26 Epinephrine HCl () 0.3 mg IM .X1 PRN PRN Reason: Allergic Reaction Stop: 01/20/20 22:26 Heparin Sodium (Porcine) (Heparin Na) 5,000 unit SC Q12 JONAH Last Admin: 01/19/20 10:14 Dose: Not Given Documented by: Sodium Chloride () 1,000 mls @ 100 mls/hr IV .Q10H JONAH Last Infusion: 01/19/20 11:53 Dose: 100 mls/hr Documented by: Famotidine 20 mg/ Sodium (Chloride) 10 mls @ 300 mls/hr IV .X1 PRN PRN Reason: Allergic Reaction Stop: 01/20/20 22:26 Nicardipine/Dextrose (Cardene-Dex 20 Mg/200 Ml Soln) 20 mg in 200 mls @ 50 mls/hr IV .Q4H PRN; Protocol PRN Reason: See Instructions Sodium Chloride () 250 mls @ 15 mls/hr IV .[id number] PRN PRN Reason: Saline Flush Sodium Chloride () 250 mls @ 15 mls/hr IV .[id number] PRN PRN Reason: Additional IVPB Infusion Labetalol HCl (Trandate) 10 mg IV X1 PRN PRN Reason: BLOOD PRESSURE Last Admin: 01/18/20 23:06 Dose: 10 mg Documented by: Methylprednisolone (Solu-Medrol) 125 mg IV .X1 PRN PRN Reason: Allergic Reaction Stop: 01/20/20 22:26 Morphine Sulfate () 2 mg IV Q3H PRN PRN PRN Reason: Pain Score 1-10/10 Sodium Chloride () 10 - 40 ml IV UD PRN PRN Reason: SALINE FLUSH STROKE Vital Signs/Narrative: Vital Signs Temp Pulse Resp BP Pulse Ox 01/19/20 14:00 85 13 166/75 H 97 01/19/20 13:00 98 16 152/69 H 99 01/19/20 12:00 99.1 F 89 12 154/96 H 98 01/19/20 11:48 93 Medical Necessity - Tobacco Use Smoking Status: Former smoker Tobacco Use: Non-smoker Assessment/Plan All Active Problems Aphasia due to acute stroke (Acute) Right sided weakness (Acute) 1. acute ischemic infarct s/p TPA - repeat ct brain and MRI brain pending. teleneuro consult done. no aspirin for at least 24 hours. pt will likely need anticoagulated given new afib, however need to see how large stroke is before initating. Echo with no ASD. continue permissive htn. pt will need dc on statin. continue pt/ot/st. trop neg. leukocytosis likely reactive to acute infarct. 2. CKDIV - repeat AM BMP. hold losartan. pt follows Dr. Quinn. 3. new afib - unclear how long he has been in afib. echo done. ef 75%, rvsp 48 mmHg moderate pulmonary htn. Rate <100. 4. Hyperglycmemia - check a1c. 5. HTN - metoprolol held for permissive htn DVT ppx: SCDs DC planning: repeat CT brain tonight, MRI brain tonight. monitor in icu overnight. This patient was seen by Gagan Alonso PA-C under the supervision of Dr. Vasquez. <Santana Vasquez - Last Filed: 01/19/20 16:52> Reason for Visit: Acute ischemic stroke status post TPA. Objective: Blood pressure in permissive hypertension range.. No tachypnea or hypoxia. No fever. Patient does not have previous history of TIA or stroke. No prior cardiac history. Patient found to have new onset A. fib. Discussed with the tele?neurologist. Vitals/I&O's: Vital Signs Temp Pulse Resp BP Pulse Ox 99.1 F 83 18 171/100 H 98 01/19/20 12:00 01/19/20 15:36 01/19/20 15:00 01/19/20 15:00 01/19/20 15:00 Oxygen Flow Rate (L/min) 2 Oxygen Delivery Method Room Air Weight: 192 lb 14.472 oz Body Mass Index (BMI) 25.4 Finger Stick Blood Glucose 173 Intake and Output for Last 24 Hours 01/17/20 01/18/20 01/19/20 23:59 23:59 23:59 Intake Total 73.77 / 73.77 1409.17 / 1409.17 Output Total 1545 / 1545 Balance 73.77 / 73.77 -135.83 / -135.83 General: Alert, Oriented x3, Cooperative HEENT: Atraumatic, PERRLA, EOMI, Normocephalic Neck: Supple, No JVD, Negative Carotid Bruits Lungs: Clear to auscultation, Normal air movement Cardiovascular: Normal S1, Normal S2, No murmurs, Irregular Rate, Tachycardic Abdomen: Bowel Sounds Present, Soft, Non Tender, Non-Distended Extremities: No edema, Capillary Refill Less than 3 Seconds Skin: No rashes, No breakdown Musculoskeletal: No Tenderness to Palpation of Joints or Extremities Neurological: Cranial nerves II-XII grossly intact, - - some difficulty with word finding no slurring Mild left-sided facial droop. Has language deficit with word finding and dysphagia. Psych/Mental Status: Normal Affect, Appropriate Laboratory Results 01/18/20 22:18: WBC 13.7 H, RBC 4.02 L, Hgb 12.9 L, Hct 38.9 L, MCV 96.8 H, MCH 32.1 H, MCHC 33.2, RDW Std Deviation 46.5 H, RDW Coeff of Steve 13.1, Plt Count 291, MPV 9.8, Immature Gran % (Auto) 0.400, Neut % (Auto) 59.5, Lymph % (Auto) 27.2, Snyder % (Auto) 8.7, Eos % (Auto) 3.5, Baso % (Auto) 0.7, Absolute Neuts (auto) 8.2 H, Absolute Lymphs (auto) 3.74, Nucleated RBC % 0 01/18/20 22:18: PT 12.7, INR 1.0, APTT 26.0 01/18/20 22:18: Sodium 137, Potassium 4.0, Chloride 110 H, Carbon Dioxide 21.0, Anion Gap 6, BUN 63 H, Creatinine 2.99 H, Estim Creat Clear Calc 24.87, Est GFR (MDRD) Af Amer 27 L, Est GFR (MDRD) Non-Af 22 L, BUN/Creatinine Ratio 21.1 H, Glucose 164 H, Calcium 8.0 L, Troponin I < 0.015 01/18/20 22:18: Hemoglobin A1c Pending Current Medications Acetaminophen (Tylenol) 650 mg PO .X1 PRN PRN Reason: Temp > 99.6 F Diphenhydramine HCl (Benadryl) 50 mg IV .X1 PRN PRN Reason: Allergic Reaction Stop: 01/20/20 22:26 Epinephrine HCl () 0.3 mg IM .X1 PRN PRN Reason: Allergic Reaction Stop: 01/20/20 22:26 Heparin Sodium (Porcine) (Heparin Na) 5,000 unit SC Q12 [facility] Last Admin: 01/19/20 10:14 Dose: Not Given Documented by: Sodium Chloride () 1,000 mls @ 100 mls/hr IV .Q10H [facility] Last Infusion: 01/19/20 11:53 Dose: 100 mls/hr Documented by: Famotidine 20 mg/ Sodium (Chloride) 10 mls @ 300 mls/hr IV .X1 PRN PRN Reason: Allergic Reaction Stop: 01/20/20 22:26 Nicardipine/Dextrose (Cardene-Dex 20 Mg/200 Ml Soln) 20 mg in 200 mls @ 50 mls/hr IV .Q4H PRN; Protocol PRN Reason: See Instructions Sodium Chloride () 250 mls @ 15 mls/hr IV .[id number] PRN PRN Reason: Saline Flush Sodium Chloride () 250 mls @ 15 mls/hr IV .[id number] PRN PRN Reason: Additional IVPB Infusion Labetalol HCl (Trandate) 10 mg IV X1 PRN PRN Reason: BLOOD PRESSURE Last Admin: 01/18/20 23:06 Dose: 10 mg Documented by: Methylprednisolone (Solu-Medrol) 125 mg IV .X1 PRN PRN Reason: Allergic Reaction Stop: 01/20/20 22:26 Morphine Sulfate () 2 mg IV Q3H PRN PRN PRN Reason: Pain Score 1-10/10 Sodium Chloride () 10 - 40 ml IV UD PRN PRN Reason: SALINE FLUSH STROKE Vital Signs/Narrative: Vital Signs Pulse Resp BP Pulse Ox 01/19/20 15:36 83 01/19/20 15:00 88 18 171/100 H 98 01/19/20 14:00 85 13 166/75 H 97 01/19/20 13:00 98 16 152/69 H 99 Assessment/Plan This patient was seen in conjunction with Gagan RIBEIRO. I have independently interviewed and examined the patient and reviewed pertinent history, examination findings, laboratory and plan of management. I have reviewed the note and agree with the documented findings with the few additional points. In brief, patient is 69-year-old gentleman is being admitted in ICU after acute ischemic stroke status post TPA given in ED. head and neck CTA shows mild less than 50% stenosis of left carotid bulb and proximal ICA. Plan for repeat CT brain in the evening about 24 hours [address] the index CT scan. MRI brain tomorrow a.m. 2D echo was done and report as mentioned below: Interpretation Summary The estimated ejection fraction is 75 %. Unable to assess diastolic dysfunction due to arrhythmia. Bubble contrast study negative for right to left interatrial shunt. Trivial mitral valve insufficiency. Trivial tricuspid valve insufficiency. Right ventricular systolic pressure estimated to be 48 mmHg. Moderate pulmonary hypertension. Patient appears to be in atrial fibrillation. There is no comparison study available. Continue blood pressure control as per blood pressure guideline to keep in permissive hypertensive range in 48 hours. PT, OT and speech evaluation and therapy. Troponin negative. New onset A. fib. Plan to start aspirin if repeat CT head is negative for bleed most probably tomorrow a.m. fasting profile tomorrow a.m. patient will further need evaluation for long-term antithrombotic agent for nonvalvular A. fib. I have discussed my assessment with Gagan RIBEIRO and orders have been reviewed. Clinical Impression(s) from Imaging Studies Brain CT 01/18/20 22:00 IMPRESSION: 1. No acute findings. 2. Chronic right basal ganglia lacunar infarct. 3. Microvascular ischemia. Atrophy. Head/Neck CTA 01/18/20 22:01 IMPRESSION: 1. Evaluation of the distal cervical region and skull base is limited due to patient motion. 2. Mild (<50%) stenosis of the left carotid bulb and proximal ICA. 3. Left thyroid nodule or complex cyst. Consider nonemergent evaluation with thyroid ultrasound. Chest X-Ray 01/18/20 23:00 IMPRESSION: Normal x-ray examination of the chest. Electronically Signed: Eunice Romero MD at 23:17 EDT Tel , Service support , Inpatient E&M: [id number] Subs [facility] L3
[2020-01-19 18:56] LABS: Hemoglobin A1c 5.8 % (4.2-6.3)
--- NOTE | 2020-01-19 23:40 | CT_ITS ---
STUDY: CT BRAIN WITHOUT CONTRAST REASON FOR EXAM: Male, 69 years old. 24 hours post TPA for right-sided weakness and aphasia. RADIATION DOSAGE (If Supplied By Facility): CTDIvol = ( 44.99 ) mGy, DLP = ( 796.11 ) mGycm TECHNIQUE: Transaxial CT imaging of the brain was performed without administration of intravenous contrast material. Individualized dose optimization techniques were used for this CT. COMPARISON: CT head January 18, 2020. FINDINGS: Normal soft tissue structures. Normal calvarium. There is mild cerebral atrophy with widening of the extra-axial spaces and ventricular dilatation. There are areas of decreased attenuation within the white matter tracts of the supratentorial brain, consistent with microvascular disease changes. Old lacunar infarction right lentiform nucleus. Normal thalami. Normal brainstem. Normal cerebellum. There is no intracranial hemorrhage. There are no findings of an acute ischemic infarction. Normal visualized paranasal sinuses. CT/Brain/Head without Contrast IMPRESSION: Stable head CT, no acute intracranial abnormality. No intracranial hemorrhage. Chronic involutional changes of the brain. Old right basal ganglia lacunar infarction. Electronically Signed: Waldemar Carrasquillo MD at 0:04 EDT , Service support ,
[2020-01-20] VITALS (21 sets, daily range): BP systolic 94–174; BP diastolic 59–93; PULSE 68–100; RESP 10–23; TEMP 36.7–37.2; O2SAT 96–99
[2020-01-20 04:31] LABS: Absolute Lymphocyte Count 2.77 X10^3/uL (0.83-4.51); Absolute Neutrophil Count 7.8 X10^3/uL (2.0-7.7); Basophil# 0.09 X10^3/uL; Basophil% 0.7 % (0-1); Eosinophils% 4.1 % (0-5); Hematocrit 37.6 % (40-54); Hemoglobin 12.5 g/dL (13.0-16.5); Lymphocyte # 2.77 X10^3/ul (4.0); Lymphocyte % 22.6 % (19-41); Mean Corp Hgb Conc 33.2 g/dL (32-36); Mean Corpuscular Hgb 31.5 pg (27.0-32.0); Mean Corpuscular Volume 94.7 fL (80-94); Mean Platelet Vol. 9.8 fl (6.2-12.0); Monocyte# 1.05 X10^3/uL; Monocyte% 8.6 % (0-10); NRBC Flagged by Analyzer 0 % (0-5); Neutrophil % 63.8 % (47-70); Platelet Count 266 K/mm3 (150-450); RBC Distribution Width SD 44.7 fl (35.1-43.9); Red Blood Count 3.97 M/mm3 (4.6-6.2); White Blood Count 12.2 K/mm3 (4.4-11.0)
[2020-01-20 04:47] LABS: Anion Gap 6 (5-15); BUN 43 mg/dL (7-18); BUN/Creat Ratio 16.9 RATIO (10-20); Calcium,Total 8.2 mg/dL (8.5-10.1); Chloride 115 mmol/L (98-107); Cholesterol 225 mg/dL (200); Creatinine, Serum 2.54 mg/dL (0.70-1.30); EST Glomerular Filtration Rate 27 mL/min (>60); Est Glom Filt Rate - Afr Amer 32 mL/min (>60); Estimated Creatinine Clearance 30.15 ml/min; Glucose 96 mg/dL (74-106); High Density Lipoprotein 36 mg/dL; Potassium 4.6 mmol/L (3.5-5.1); Sodium Level 144 mmol/L (136-145); Triglycerides 188 mg/dL; Very Low Density Lipoprotein 38 mg/dL (5-40)
[2020-01-20] MEDS: 0.9% Normal Saline 1,000 ML 100 ML IV (04:47)
--- NOTE | 2020-01-20 07:23 | PN_ITS ---
Subjective: The patient was seen and examined at the bedside this morning. Events from the last 24 hours have been reviewed. The patient is currently afebrile, hemodynamically stable and maintaining appropriate oxygen saturations on room air. Repeat CT head last night was unremarkable. However MRI brain completed this morning did reveal an acute/subacute left middle cerebral artery infarct. Objective: The patient's most recent lab work, culture data and imaging studies have all been personally reviewed. General: Alert, Cooperative, No apparent distress HEENT: Atraumatic, Normocephalic Oral: No Gingival or Mucosal Lesions/ Ulcerations Neck: Supple, No Nodes, Trachea Midline Lungs: Normal air movement, No rhonchi, No wheeze, No rales Cardiovascular: Regular rate, Regular Rhythm, Normal S1, Normal S2, - - Currently in normal sinus rhythm on telemetry Abdomen: Bowel Sounds Present, Soft, Non Tender Extremities: No clubbing, No cyanosis, No edema Skin: No breakdown Musculoskeletal: No Tenderness to Palpation of Joints or Extremities Lymphatic: No Cervical, Supraclavicular, or Inguinal Adenopathy Neurological: Cranial nerves II-XII grossly intact Psych/Mental Status: Normal Affect, Appropriate Vital Signs Temp Pulse Resp BP Pulse Ox 98.9 F 79 10 L 141/59 H 98 01/20/20 00:00 01/20/20 07:00 01/20/20 07:00 01/20/20 07:00 01/20/20 07:00 Oxygen Flow Rate (L/min) 2 Oxygen Delivery Method Room Air Weight: 192 lb 10.944 oz Body Mass Index (BMI) 25.4 Finger Stick Blood Glucose 173 Intake and Output for Last 24 Hours 01/18/20 01/19/20 01/20/20 23:59 23:59 23:59 Intake Total 73.77 / 73.77 2079.17 / 2199.17 1120 / 1120 Output Total 2095 / 2545 1075 / 1075 Balance 73.77 / 73.77 -15.83 / -345.83 45 / 45 Labs (Last 48 Hours) 01/18/20 01/18/20 01/18/20 22:18 22:18 22:18 WBC 13.7 H RBC 4.02 L Hgb 12.9 L Hct 38.9 L MCV 96.8 H MCH 32.1 H MCHC 33.2 RDW Std Deviation 46.5 H RDW Coeff of Steve 13.1 Plt Count 291 MPV 9.8 Immature Gran % (Auto) 0.400 Neut % (Auto) 59.5 Lymph % (Auto) 27.2 [place] % (Auto) 8.7 Eos % (Auto) 3.5 Baso % (Auto) 0.7 Absolute Neuts (auto) 8.2 H Absolute Lymphs (auto) 3.74 Nucleated RBC % 0 PT 12.7 INR 1.0 APTT 26.0 Sodium 137 Potassium 4.0 Chloride 110 H Carbon Dioxide 21.0 Anion Gap 6 BUN 63 H Creatinine 2.99 H Estim Creat Clear Calc 24.87 Est GFR (MDRD) Af Amer 27 L Est GFR (MDRD) Non-Af 22 L BUN/Creatinine Ratio 21.1 H Glucose 164 H Hemoglobin A1c Calcium 8.0 L Troponin I < 0.015 Triglycerides Cholesterol LDL Cholesterol VLDL Cholesterol HDL Cholesterol 01/18/20 01/20/20 01/20/20 22:18 04:25 04:25 WBC 12.2 H RBC 3.97 L Hgb 12.5 L Hct 37.6 L MCV 94.7 H MCH 31.5 MCHC 33.2 RDW Std Deviation 44.7 H RDW Coeff of Steve 13.0 Plt Count 266 MPV 9.8 Immature Gran % (Auto) 0.200 Neut % (Auto) 63.8 Lymph % (Auto) 22.6 [place] % (Auto) 8.6 Eos % (Auto) 4.1 Baso % (Auto) 0.7 Absolute Neuts (auto) 7.8 H Absolute Lymphs (auto) 2.77 Nucleated RBC % 0 PT INR APTT Sodium 144 Potassium 4.6 Chloride 115 H Carbon Dioxide 23.0 Anion Gap 6 BUN 43 H Creatinine 2.54 H Estim Creat Clear Calc 30.15 Est GFR (MDRD) Af Amer 32 L Est GFR (MDRD) Non-Af 27 L BUN/Creatinine Ratio 16.9 Glucose 96 Hemoglobin A1c 5.8 Calcium 8.2 L Troponin I Triglycerides 188 Cholesterol 225 H LDL Cholesterol 151 H VLDL Cholesterol 38 HDL Cholesterol 36 L Clinical Impression(s) from Imaging Studies Brain CT 01/18/20 22:00 IMPRESSION: 1. No acute findings. 2. Chronic right basal ganglia lacunar infarct. 3. Microvascular ischemia. Atrophy. N.B. : The above information has been verbally conveyed by Eunice Romero MD to Dr. Shanda MD, on 01/18/2020 22:18:16 (ET). Electronically Signed: Eunice Romero MD at 22:20 EDT Tel , Service support , ADDENDUM: 01/18/207 IMPRESSION: 1. No acute findings. 2. Chronic right basal ganglia lacunar infarct. 3. Microvascular ischemia. Atrophy. N.B. : The above information has been verbally conveyed by Eunice Romero MD to Dr. Shanda MD, on 01/18/2020 22:18:16 (ET). Electronically Signed: Eunice Romero MD at 22:20 EDT Tel , Service support , Head/Neck CTA 01/18/20 22:01 IMPRESSION: 1. Evaluation of the distal cervical region and skull base is limited due to patient motion. 2. Mild (<50%) stenosis of the left carotid bulb and proximal ICA. 3. Left thyroid nodule or complex cyst. Consider nonemergent evaluation with thyroid ultrasound. Electronically Signed: Eunice Romero MD at 22:57 EDT Tel , Service support , Chest X-Ray 01/18/20 23:00 IMPRESSION: Normal x-ray examination of the chest. Electronically Signed: Eunice Romero MD at 23:17 EDT Tel , Service support , Brain CT 01/19/20 23:40 IMPRESSION: Stable head CT, no acute intracranial abnormality. No intracranial hemorrhage. Chronic involutional changes of the brain. Old right basal ganglia lacunar infarction. Electronically Signed: Waldemar Carrasquillo MD at 0:04 EDT , Service support , Medical Necessity - Tobacco Use Smoking Status: Former smoker Tobacco Use: Non-smoker Assessment/Plan All Active Problems Aphasia due to acute stroke (Acute) Right sided weakness (Acute) RECOMMENDATIONS: 1. Plan to start aspirin with bridge to systemic anticoagulation per neurology. 2. PT/OT/speech evaluations. 3. The patient is medically stable for transfer out of the intensive care unit. Will sign off from a critical care perspective. IMPRESSIONS: 1. Acute ischemic CVA status post TPA Continue routine monitoring post TPA per protocol. Brain MRI did reveal a left MCA infarction. The patient will require PT/OT/speech evaluations. Continue remainder of medical management per neurology recommendations. 2. New onset atrial flutter/fibrillation The patient initially presented to the hospital in atrial fibrillation but has since converted to normal sinus rhythm. The patient will require systemic anticoagulation once medically stable, per neurology. This note was generated with [employer] dictation software. It may contain incorrect words, spelling, and punctuation that were not noted in checking the note before signing. Inpatient E&M: 10507 Subs Hosp L2
--- NOTE | 2020-01-20 08:00 | MRI_ITS ---
We are attempting to reach an attending provider to discuss findings. An addendum with communication details will be sent when the communication is complete. STUDY: MRI BRAIN WITHOUT CONTRAST REASON FOR EXAM: Male, 69 years old. cva, post TPA, aphasia, rt facial droop TECHNIQUE: Standardized multiplanar fat and water weighted pulse sequences were obtained. COMPARISON: CT 01/19/2020 FINDINGS: There is mild cerebral atrophy with widening of the extra-axial spaces and ventricular dilatation. There are multiple white matter hyperintensities, distributed throughout the deep white matter tracts of the cerebral hemispheres, consistent with moderate chronic white matter ischemic changes. There are areas of hyperintensity within the cortex of the left parietal lobe which demonstrates restricted diffusion consistent with an acute/subacute infarct. Normal T2* images of the brain without demonstrated susceptibility artifact. There is no demonstrated hemosiderin stain. Normal bilateral basal ganglia. Normal thalami. There is no extra-axial fluid accumulation. Normal flow voids within the major intracranial circulation suggesting patency by spin echo criteria. Normal sella turcica, pituitary gland, infundibular stalk, optic chiasm and hypothalamus. Normal tectal plate and pineal gland. Normal midbrain, gail and medulla. Normal cerebellum. Normal basal cisterns. Normal bilateral temporal bones. Normal bilateral internal auditory canals. No demonstrated orbital abnormality, within the constraints of a routine brain study. Normal visualized paranasal sinuses. Normal calvarium and skull base. Normal visualized soft tissue structures. Normal visualized upper cervical spine. MRI/Brain without Contrast IMPRESSION: Involutional changes of the brain, as described above. Acute/subacute left middle cerebral artery infarct. Electronically Signed: Marcello Herr MD at 9:09 EDT Tel , Service support ,
--- NOTE | 2020-01-20 09:51 | CASEMGMT ---
SW completed PHQ9 with patient as he had a Stroke. He scored a 0 which indicates no Depression. Sidra GOMEZ MSW
--- NOTE | 2020-01-20 09:55 | PN_ITS ---
Patient Problems: Active and Suspected Problems Aphasia due to acute stroke (Acute) Right sided weakness (Acute) Reason for Visit: Status post DKA, acute left MCA infarct. Objective: The patient has left-sided facial droop. Converted to normal sinus rhythm in the morning. There is improvement in the verbal output and his speech although patient not able to optimize the images of objects and read the sentences and difficulty in word finding. It seems more sensory aphasia Vitals/I&O's: Vital Signs Temp Pulse Resp BP Pulse Ox 98.4 F 85 14 149/77 H 98 01/20/20 08:00 01/20/20 09:00 01/20/20 09:00 01/20/20 09:00 01/20/20 09:00 Oxygen Flow Rate (L/min) 2 Oxygen Delivery Method Room Air Weight: 192 lb 10.944 oz Body Mass Index (BMI) 25.4 Finger Stick Blood Glucose 173 Intake and Output for Last 24 Hours 01/18/20 01/19/20 01/20/20 23:59 23:59 23:59 Intake Total 73.77 / 73.77 2079.17 / 2199.17 1450 / 1450 Output Total 2095 / 2545 1075 / 1075 Balance 73.77 / 73.77 -15.83 / -345.83 375 / 375 General: Alert, Oriented x3, Cooperative HEENT: Atraumatic, PERRLA, EOMI, Normocephalic Neck: Supple, No JVD, Negative Carotid Bruits Lungs: Clear to auscultation, Normal air movement Cardiovascular: Regular rate, No murmurs Abdomen: Bowel Sounds Present, Soft, Non Tender Extremities: No edema, Capillary Refill Less than 3 Seconds Skin: No rashes, No breakdown Musculoskeletal: No Tenderness to Palpation of Joints or Extremities Neurological: Cranial nerves II-XII grossly intact, - - Mild left facial droop and mild to moderate language deficit with total NIH stroke scale 3 Psych/Mental Status: Normal Affect, Appropriate Laboratory Results 01/18/20 22:18: Hemoglobin A1c 5.8 01/20/20 04:25: WBC 12.2 H, RBC 3.97 L, Hgb 12.5 L, Hct 37.6 L, MCV 94.7 H, MCH 31.5, MCHC 33.2, RDW Std Deviation 44.7 H, RDW Coeff of Steve 13.0, Plt Count 266, MPV 9.8, Immature Gran % (Auto) 0.200, Neut % (Auto) 63.8, Lymph % (Auto) 22.6, [place] % (Auto) 8.6, Eos % (Auto) 4.1, Baso % (Auto) 0.7, Absolute Neuts (auto) 7.8 H, Absolute Lymphs (auto) 2.77, Nucleated RBC % 0 01/20/20 04:25: Sodium 144, Potassium 4.6, Chloride 115 H, Carbon Dioxide 23.0, Anion Gap 6, BUN 43 H, Creatinine 2.54 H, Estim Creat Clear Calc 30.15, Est GFR (MDRD) Af Amer 32 L, Est GFR (MDRD) Non-Af 27 L, BUN/Creatinine Ratio 16.9, Glucose 96, Calcium 8.2 L, Triglycerides 188, Cholesterol 225 H, LDL Cholesterol 151 H, VLDL Cholesterol 38, HDL Cholesterol 36 L Current Medications Acetaminophen (Tylenol) 650 mg PO .X1 PRN PRN Reason: Temp > 99.6 F Diphenhydramine HCl (Benadryl) 50 mg IV .X1 PRN PRN Reason: Allergic Reaction Stop: 01/20/20 22:26 Epinephrine HCl () 0.3 mg IM .X1 PRN PRN Reason: Allergic Reaction Stop: 01/20/20 22:26 Heparin Sodium (Porcine) (Heparin Na) 5,000 unit SC Q12 [facility] Last Admin: 01/19/20 21:14 Dose: Not Given Documented by: Sodium Chloride () 1,000 mls @ 100 mls/hr IV .Q10H [facility] Last Infusion: 01/20/20 09:20 Dose: 100 mls/hr Documented by: Famotidine 20 mg/ Sodium (Chloride) 10 mls @ 300 mls/hr IV .X1 PRN PRN Reason: Allergic Reaction Stop: 01/20/20 22:26 Nicardipine/Dextrose (Cardene-Dex 20 Mg/200 Ml Soln) 20 mg in 200 mls @ 50 mls/hr IV .Q4H PRN; Protocol PRN Reason: See Instructions Sodium Chloride () 250 mls @ 15 mls/hr IV .[id number] PRN PRN Reason: Saline Flush Sodium Chloride () 250 mls @ 15 mls/hr IV .[id number] PRN PRN Reason: Additional IVPB Infusion Labetalol HCl (Trandate) 10 mg IV X1 PRN PRN Reason: BLOOD PRESSURE Last Admin: 01/18/20 23:06 Dose: 10 mg Documented by: Methylprednisolone (Solu-Medrol) 125 mg IV .X1 PRN PRN Reason: Allergic Reaction Stop: 01/20/20 22:26 Morphine Sulfate () 2 mg IV Q3H PRN PRN PRN Reason: Pain Score 1-10/10 Nutritional Formula (Lactose Free) (Ensure Enlive) 120 ml PO 4X/DAY JONAH Sodium Chloride () 10 - 40 ml IV UD PRN PRN Reason: SALINE FLUSH STROKE Vital Signs/Narrative: Vital Signs Temp Pulse Resp BP BP Pulse Ox 01/20/20 09:00 85 14 149/77 H 98 01/20/20 08:00 98.4 F 82 14 156/90 H 98 01/20/20 07:00 79 10 L 141/59 H 98 01/20/20 06:00 95 23 H 154/89 H 97 Medical Necessity - Tobacco Use Smoking Status: Former smoker Tobacco Use: Non-smoker Assessment/Plan All Active Problems Aphasia due to acute stroke (Acute) Right sided weakness (Acute) The patient is 69-year-old gentleman is being admitted in ICU after acute ischemic stroke status post TPA given in ED. head and neck CTA shows mild less than 50% stenosis of left carotid bulb and proximal ICA. 1. Acute left MCA infarct: Repeat CT head in the evening did not show bleed and MRI brain was done in the morning which shows left MCA infarct. 2D echo was done and report as mentioned below: Interpretation Summary The estimated ejection fraction is 75 %. Unable to assess diastolic dysfunction due to arrhythmia. Bubble contrast study negative for right to left interatrial shunt. Trivial mitral valve insufficiency. Trivial tricuspid valve insufficiency. Right ventricular systolic pressure estimated to be 48 mmHg. Moderate pulmonary hypertension. Continue blood pressure control as per blood pressure guideline to keep in permissive hypertensive range for another 24 hours and gradually blood pressure 120 to 130 mmHg to keep brain perfusion. PT, OT and speech evaluation and therapy. Troponin negative. Aspirin 325 mg oral daily started as per neurologist recommendation along with atorvastatin 80 mg daily. 2. Hypertension and new onset A. fib.: Converted spontaneously. Will need 30- day event monitor to check on the rhythm at the time of discharge. Heart rate is controlled 3. Dyslipidemia: Elevated total cholesterol and LDL. On atorvastatin 80 mg daily. 4. Acute kidney injury probably prerenal on CKD stage III: Admitting creatinine was 2.99. Last creatinine 2.72 in August 2019. His creatinine elevated as per our records since 2013, 2.3 and is slowly increasing. Patient follows [facility] and as per they keep check on his creatinine and kidney function. 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 Kidney function gradually improving, 2.54 on baseline. 5. Hyperglycemia: A1c 5.8, suggestive of prediabetes. Advised 18 ADA diet. I talked to the patient's Charley, phone #[phone] and gave clinical update regarding exam findings, MRI, CT scans, 2D echo and other lab test. Total time of the visit including total time spent in counseling or coordination of care, (more than 50% of the total time, spent in obtaining medical information from nurses and other ancillary care providers), question with medical record consultant and family member, review of labs and imaging is 30 minutes Clinical Impression(s) from Imaging Studies Chest X-Ray 01/18/20 23:00 IMPRESSION: Normal x-ray examination of the chest. Brain CT 01/19/20 23:40 IMPRESSION: Stable head CT, no acute intracranial abnormality. No intracranial hemorrhage. Chronic involutional changes of the brain. Old right basal ganglia lacunar infarction. Brain MRI 01/20/20 08:00 IMPRESSION: Involutional changes of the brain, as described above. Acute/subacute left middle cerebral artery infarct. Brain CT 01/18/20 22:00 IMPRESSION: 1. No acute findings. 2. Chronic right basal ganglia lacunar infarct. 3. Microvascular ischemia. Atrophy. Head/Neck CTA 01/18/20 22:01 IMPRESSION: 1. Evaluation of the distal cervical region and skull base is limited due to patient motion. 2. Mild (<50%) stenosis of the left carotid bulb and proximal ICA. 3. Left thyroid nodule or complex cyst. Consider nonemergent evaluation with thyroid ultrasound. Chest X-Ray 01/18/20 23:00 IMPRESSION: Normal x-ray examination of the chest. Electronically Signed: Eunice Romero MD at 23:17 EDT Tel , Service support , Inpatient E&M: [id number] Subs Hosp L3
[2020-01-20] MEDS: Aspirin E.C. 325 MG Tablet PO (11:31)
[2020-01-20] MEDS: Atorvastatin Calcium 80 MG Tablet PO (13:03)
[2020-01-20] MEDS: 0.9% Normal Saline 1,000 ML 50 ML IV (21:52)
[2020-01-21] VITALS: BP 145/83; PULSE 79; RESP 16; TEMP 36.9; O2SAT 97
[2020-01-21 03:00] VITALS: PULSE 71
[2020-01-21 04:00] VITALS: BP 141/82; PULSE 80; RESP 16; TEMP 36.8; O2SAT 97
[2020-01-21 07:08] LABS: Absolute Lymphocyte Count 2.73 X10^3/uL (0.83-4.51); Absolute Neutrophil Count 7.8 X10^3/uL (2.0-7.7); Basophil# 0.08 X10^3/uL; Basophil% 0.6 % (0-1); Eosinophil# 0.64 X10^3/uL; Eosinophils% 5.2 % (0-5); Hematocrit 39.2 % (40-54); Lymphocyte # 2.73 X10^3/ul (4.0); Mean Corp Hgb Conc 33.2 g/dL (32-36); Mean Corpuscular Hgb 32.3 pg (27.0-32.0); Mean Corpuscular Volume 97.3 fL (80-94); Mean Platelet Vol. 9.6 fl (6.2-12.0); Monocyte# 1.09 X10^3/uL; Monocyte% 8.8 % (0-10); NRBC Flagged by Analyzer 0 % (0-5); Neutrophil # 7.83 X10^3/uL (2.7-7.7); Platelet Count 253 K/mm3 (150-450); RBC Distribution Width SD 46.1 fl (35.1-43.9); Red Blood Count 4.03 M/mm3 (4.6-6.2); White Blood Count 12.4 K/mm3 (4.4-11.0)
--- NOTE | 2020-01-21 07:56 | DCINST_ITS ---
- Discharge Diagnoses Current Active Problems: Current Active and Chronic Problems Aphasia due to acute stroke (Acute) Right sided weakness (Acute) You will use the following diet at home:: Calorie/Carbohydrate Controlled (specify 1200, 1400, etc) - 1800 ADA diet, Cardiac Your food should be the consistency of: Regular Discharge Activity: May Not Drive Call your doctor if you observe: Fever of 101 or Higher, Coldness, Increased Pain, Inability to urinate, Inability to have a bowel movement, Shortness of breath, Fainting spells, Swelling in the ankles, Chest pain, Increased palpitations (irregular heartbeat), Calf discomfort, Uncontrolled pain Additional Instructions: Antihypertensive medication, losartan needs to be titrated up to keep blood pressure systolic blood pressure less than 130 mmHg, ideally 120 mmHg. Discharge on 30-day event monitor and follow-up with Dr. loco for new onset A. fib which is converted to sinus rhythm, paroxysmal A. fib Allergies/Adverse Reactions: Allergies No Known Allergies Allergy (Verified 01/18/20 22:18) Medications to take at Discharge Cholecalciferol (Vitamin D3) [Vitamin D3] 2,000 unit PO DAILY 01/18/20 Metoprolol Tartrate [Lopressor (beta ceferino)] 25 mg PO DAILY 01/18/20 Omeprazole 20 mg PO DAILY 01/18/20 Aspirin E.C. [Ecotrin] 325 mg PO DAILY@0800 #30 tab 01/21/20 Atorvastatin Calcium [Lipitor] 80 mg PO QHS #30 tab 01/21/20 Losartan Potassium 50 mg PO DAILY #30 tab 01/21/20 The following prescriptions were given: Aspirin E.C. [Ecotrin] 325 mg PO DAILY@0800 #30 tab Transmission Status: Pending to [id number] Atorvastatin Calcium [Lipitor] 80 mg PO QHS #30 tab Transmission Status: Pending to [id number] Losartan Potassium 50 mg PO DAILY #30 tab Transmission Status: Pending to [id number] Primary Care Physician: Bernie Crook MD [Primary Care Provider] - Please follow up with your Primary Care Physician in: in 1-2 weeks, needs titation up of BP meds Test Results: Test results from this visit will be discussed in further detail at your follow- up appointment, if applicable. Please Follow Up With: Sandeep Brizuela MD When: in 2-3 weeks for stroke Please Follow Up With: Gamal Loco MD When: in 2-3 weeks
[2020-01-21 07:58] LABS: Anion Gap 5 (5-15); BUN 38 mg/dL (7-18); BUN/Creat Ratio 15.6 RATIO (10-20); Calcium,Total 8.6 mg/dL (8.5-10.1); Chloride 114 mmol/L (98-107); Creatinine, Serum 2.44 mg/dL (0.70-1.30); EST Glomerular Filtration Rate 28 mL/min (>60); Est Glom Filt Rate - Afr Amer 34 mL/min (>60); Estimated Creatinine Clearance 31.38 ml/min; Glucose 88 mg/dL (74-106); Potassium 4.6 mmol/L (3.5-5.1); Sodium Level 142 mmol/L (136-145)
--- NOTE | 2020-01-21 08:02 | DS.PCM_ITS ---
Discharge Date and Diagnosis Date of Admission: 01/19/20 Date of Discharge: 01/21/20 - Primary Discharge Diagnosis Active and Suspected Problems Aphasia due to acute stroke (Acute) Acute ischemic left MCA stroke status post TPA Hospital Course and Treatment Summary of Care Provided: [] The patient is 69-year-old gentleman is being admitted in ICU after acute ischemic stroke status post TPA given in ED. head and neck CTA shows mild less than 50% stenosis of left carotid bulb and proximal ICA. 1. Acute left MCA infarct: Repeat CT head in the evening did not show bleed and MRI brain was done in the morning which shows left MCA infarct. 2D echo was done and report as mentioned below: Interpretation Summary The estimated ejection fraction is 75 %. Unable to assess diastolic dysfunction due to arrhythmia. Bubble contrast study negative for right to left interatrial shunt. Trivial mitral valve insufficiency. Trivial tricuspid valve insufficiency. Right ventricular systolic pressure estimated to be 48 mmHg. Moderate pulmonary hypertension. Patient blood pressure was controlled 141/82. Losartan dose increased to 50 mg daily. Patient was explained to keep his systolic blood pressure less than 130 mmHg, ideally around 120 mmHg. Speech reevaluation recommended outpatient further management. Prescription signed. Prescription given for aspirin, losartan and atorvastatin 40 mg daily. His said patient to be careful about atorvastatin. Risk and benefits of atorvastatin explained including myalgia, myopathy, abnormal liver test or acute liver injury. With PCP in 1 to 2 weeks. 2. Hypertension and new onset A. fib.: Converted spontaneously. Prescription for 30-day event monitor to check on the rhythm and follow-up with Dr. loco. Heart rate is controlled. Currently monitor shows normal sinus rhythm 3. Dyslipidemia: Elevated total cholesterol 225, LDL 151, HDL 36. Atorvastatin dose decreased to 40 mg daily. 4. Acute kidney injury probably prerenal on CKD stage III: Admitting creatinine was 2.99. Last creatinine 2.72 in August 2019. His creatinine elevated as per our records since 2013, 2.3 and is slowly increasing. Patient follows PCP [facility] and as per they keep check on his creatinine and kidney function. 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 Kidney function gradually improved to creatinine 2.44. 5. Hyperglycemia: A1c 5.8, suggestive of prediabetes. Advised 1800 ISH ADA diet. Discharge medication reconciliation done. Discharge follow-up instructions completed. Discharge process discussed with the patient and all questions were answered to patient's satisfaction. Total time spent, exact 35 minutes on discharge meds reconciliation, examination, coordination of care with nurses and ancillary staff, review of imaging and blood test and discussion with the patient on follow-up instructions Subjective: Seen and examined. Hemodynamically stable. Blood pressure 141/82. Patient was told by PCP to be careful of atorvastatin/statin in view of kidney failure patient has CKD stage III. Objective: Patient was feeling frustrated not able to explain what the issue of atorvastatin with PCP. Was told to be careful with atorvastatin although stated in view of CKD. On physical exam findings General: Alert, Oriented x3, Cooperative HEENT: Atraumatic, PERRLA, EOMI, Normocephalic Neck: Supple, No JVD, Negative Carotid Bruits Lungs: Clear to auscultation, Normal air movement Cardiovascular: Regular rate, No murmurs Abdomen: Bowel Sounds Present, Soft, Non Tender Extremities: No edema, Capillary Refill Less than 3 Seconds Skin: No rashes, No breakdown Musculoskeletal: No Tenderness to Palpation of Joints or Extremities Neurological: Cranial nerves II-XII grossly intact, - Mild left facial droop and mild to moderate language deficit with total NIH stroke scale 3. Patient still has word finding difficulty, recall problem and expressive aphasia Psych/Mental Status: Normal Affect, Appropriate - Physical Exam Vitals/I&O's: Vital Signs Temp Pulse Resp BP Pulse Ox 98.3 F 80 16 141/82 H 97 01/21/20 04:00 01/21/20 04:00 01/21/20 04:00 01/21/20 04:00 01/21/20 04:00 Oxygen Flow Rate (L/min) 2 Oxygen Delivery Method Room Air Weight: 193 lb 9.054 oz Body Mass Index (BMI) 25.4 Finger Stick Blood Glucose 173 Intake and Output for Last 24 Hours 01/19/20 01/20/20 01/21/20 23:59 23:59 23:59 Intake Total 2079.17 / 2199.17 2480 / 2580 100 / 100 Output Total 2095 / 2545 1650 / 1650 Balance -15.83 / -345.83 830 / 930 100 / 100 Laboratory Results 01/21/20 06:50: WBC 12.4 H, RBC 4.03 L, Hgb 13.0, Hct 39.2 L, MCV 97.3 H, MCH 32.3 H, MCHC 33.2, RDW Std Deviation 46.1 H, RDW Coeff of Steve 13.0, Plt Count 253, MPV 9.6, Immature Gran % (Auto) 0.400, Neut % (Auto) 63.0, Lymph % (Auto) 22.0, [place]oula % (Auto) 8.8, Eos % (Auto) 5.2 H, Baso % (Auto) 0.6, Absolute Neuts (auto) 7.8 H, Absolute Lymphs (auto) 2.73, Nucleated RBC % 0 01/21/20 06:50: Sodium 142, Potassium 4.6, Chloride 114 H, Carbon Dioxide 23.0, Anion Gap 5, BUN 38 H, Creatinine 2.44 H, Estim Creat Clear Calc 31.38, Est GFR (MDRD) Af Amer 34 L, Est GFR (MDRD) Non-Af 28 L, BUN/Creatinine Ratio 15.6, Glucose 88, Calcium 8.6 Current Medications Acetaminophen (Tylenol) 650 mg PO .X1 PRN PRN Reason: Temp > 99.6 F Aspirin (Ecotrin) 325 mg PO DAILY@0800 [facility] Last Admin: 01/20/20 11:31 Dose: 325 mg Documented by: Atorvastatin Calcium (Lipitor) 80 mg PO QHS [facility] Last Admin: 01/20/20 13:03 Dose: 80 mg Documented by: Sodium Chloride () 250 mls @ 15 mls/hr IV .[id number] PRN PRN Reason: Saline Flush Sodium Chloride () 250 mls @ 15 mls/hr IV .[id number] PRN PRN Reason: Additional IVPB Infusion Sodium Chloride () 1,000 mls @ 50 mls/hr IV .Q20H [facility] Last Admin: 01/20/20 21:52 Dose: 50 mls/hr Documented by: Labetalol HCl (Trandate) 10 mg IV X1 PRN PRN Reason: BLOOD PRESSURE Last Admin: 01/18/20 23:06 Dose: 10 mg Documented by: Morphine Sulfate () 2 mg IV Q3H PRN PRN PRN Reason: Pain Score 1-10/10 Nutritional Formula (Lactose Free) (Ensure Enlive) 120 ml PO 4X/DAY [facility] Last Admin: 01/20/20 21:19 Dose: Not Given Documented by: Sodium Chloride () 10 - 40 ml IV UD PRN PRN Reason: SALINE FLUSH Discharge Activity: May Not Drive Call your doctor if you observe: Fever of 101 or Higher, Coldness, Increased Pain, Inability to urinate, Inability to have a bowel movement, Shortness of breath, Fainting spells, Swelling in the ankles, Chest pain, Increased palpitations (irregular heartbeat), Calf discomfort, Uncontrolled pain Home Medications: Medications to take at Discharge Cholecalciferol (Vitamin D3) [Vitamin D3] 2,000 unit PO DAILY 01/18/20 Metoprolol Tartrate [Lopressor (beta ceferino)] 25 mg PO DAILY 01/18/20 Omeprazole 20 mg PO DAILY 01/18/20 Aspirin E.C. [Ecotrin] 325 mg PO DAILY@0800 #30 tab 01/21/20 Atorvastatin Calcium 40 mg PO QHS #30 tab 01/21/20 Losartan Potassium 50 mg PO DAILY #30 tab 01/21/20 Following Prescrptions Were Given to Patient: Atorvastatin Calcium 40 mg PO QHS #30 tab Transmission Status: Received by [id number] Aspirin E.C. [Ecotrin] 325 mg PO DAILY@0800 #30 tab Transmission Status: Received by [id number] Losartan Potassium 50 mg PO DAILY #30 tab Transmission Status: Received by [id number] Primary Care Physician: Bernie Crook MD [Primary Care Provider] - Please follow up with your Primary Care Physician in: in 1-2 weeks, needs titation up of BP meds Please Follow Up With: Sandeep Brizuela MD When: in 2-3 weeks for stroke Please Follow Up With: Gamal Loco MD When: in 2-3 weeks Medical Necessity - Tobacco Use Smoking Status: Former smoker Tobacco Use: Non-smoker Meaningful Use Info Meaningful Use Diagnoses (Choose all that apply): Ischemic CVA - CVA Therapy Assessed for PT,OT and/or ST?: Yes - Ischemic Stroke Antithrombotic order at d/c?: Yes Dx of Atrial fib/flutter?: Yes Anticoagulant at discharge?: Yes Statins at discharge?: Yes Primary Dx Acute Ischemic CVA?: Yes IV tPA ordered during stay?: Yes Inpatient E&M: 31687 Disch Hosp
[2020-01-21] MEDS: Aspirin E.C. 325 MG Tablet PO (08:44)
--- NOTE | 2020-01-21 09:27 | CASEMGMT ---
Therapy is recommending OP speech therapy at this time. Script for OP speech faxed to [facility] at this time and original to pt with discharge instructions. Car HENDRICKS CM
== END 2020-01-21 11:13 | disposition home or self-care (01) | DRG 62 ==
LOC: ED 22:24 → ICU 01-19 00:41 → PCU 01-20 12:13
PROVIDERS: Physician Assistant; Admitting Provider Internal Medicine; Emergency Provider Emergency Medicine; PCP Internal Medicine; Referring Provider Internal Medicine; Visit Provider Internal Medicine
DX: I63.512 Cerebral infarction due to unspecified occlusion or stenosis of left middle cerebral artery (principal); N17.9 Acute kidney failure, unspecified; G81.91 Hemiplegia, unspecified affecting right dominant side; R47.01 Aphasia; R29.810 Facial weakness; R47.81 Slurred speech; R26.2 Difficulty in walking, not elsewhere classified; I12.9 Hypertensive chronic kidney disease with stage 1 through stage 4 chronic kidney disease, or unspecified chronic kidney disease; N18.3 Chronic kidney disease, stage 3 (moderate); I48.91 Unspecified atrial fibrillation; I27.20 Pulmonary hypertension, unspecified; R29.718 NIHSS score 18; E78.5 Hyperlipidemia, unspecified; R73.9 Hyperglycemia, unspecified; Z87.891 Personal history of nicotine dependence; Z82.3 Family history of stroke
CPT/HCPCS: 36415; 70450; 70496; 70498; 70551; 71045; 80048; 80061; 83036; 84484; 85025; 85610; 85730; 92507; 92522; 92526; 92610; 93005; 93306; 96374; 96375; 97116; 97161; 97166; 97530; 97803; 99251; 99285; J2997; J7030; Q9967; A4216; G0463

== ENCOUNTER → 2020-02-10 11:49 | Outpatient (CLI) | payer OTHER, SELFPAY ==
[2020-01-25 11:01] VITALS: BMI 29.7
[2020-02-10 12:50] LABS: Albumin, Serum 3.5 g/dL (3.2-5.0); BUN 43 mg/dL (7-18); BUN/Creat Ratio 15.6 RATIO (10-20); Calcium,Total 9.1 mg/dL (8.5-10.1); Chloride 108 mmol/L (98-107); Creatinine, Serum 2.76 mg/dL (0.70-1.30); EST Glomerular Filtration Rate 24 mL/min (>60); Est Glom Filt Rate - Afr Amer 29 mL/min (>60); Glucose 104 mg/dL (74-106); Phosphorus 2.6 mg/dL (2.5-4.9); Potassium 4.5 mmol/L (3.5-5.1); Sodium Level 139 mmol/L (136-145)
[2020-02-10 12:59] LABS: Vitamin D,25 Hydroxy 52.1 ng/mL
== END ==
PROVIDERS: PCP Internal Medicine; Visit Provider Internal Medicine Nephrology
DX: N18.4 Chronic kidney disease, stage 4 (severe) (principal)
CPT/HCPCS: 36415; 80069; 82306; 83970

== ENCOUNTER 2020-03-01 18:00 | Outpatient (RCR) | payer OTHER, SELFPAY ==
[2020-01-19 00:43] VITALS: BMI 25.4
[2020-01-25 11:01] VITALS: BMI 29.7
--- NOTE | 2020-01-31 18:22 | HP.SP.AD_ITS ---
History - History Date of Eval: 01/31/20 Medical Diagnosis (from RX): CVA Date of Onset of Diagnosis: 01/18/20 Previous speech therapy: Yes Results: Evaluation plus one day of therapy in the hospital. Other Relevant Medical History/Diagnoses/Surgery: Acute left MCA infarct, Moderate pulmonary hypertension, Hypertension and new onset A. fib, Dyslipidemia, Acute kidney injury probably prerenal on CKD stage III, Hyperglycemia: Medications related to this diagnosis: Cholecalciferol (Vitamin D3) [Vitamin D3] 2,000 unit PO DAILY 01/18/20. Metoprolol Tartrate [Lopressor (beta ceferino)] 25 mg PO DAILY 01/18/20. Omeprazole 20 mg PO DAILY 01/18/20. Aspirin E.C. [Ecotrin] 325 mg PO DAILY@0800 #30 tab 01/21/20. Atorvastatin Calcium 40 mg PO QHS #30 tab 01/21/20. Losartan Potassium 50 mg PO DAILY #30 tab 01/21/20 Smoking Status: Former smoker Hx Smoking Cessation Date: 01/18/20 Hx Tobacco Use: No - Pain Is pain an issue with your current prescribed condition?: Yes - Personal Education History: High school graduation Occupation: Retired Right Hearing Abillity: Hard of Hearing Left Hearing Abillity: Hard of Hearing Visual Assistive Devices: Glasses Patients Living Arrangements: With Significant Other Patient Allergies - Allergies Allergies No Known Allergies Allergy (Verified 01/25/20 11:02) Objective Cog/Ling/Com - Test Administered Blgbtrdqf-Msmmjaroou-Xbrexttkoagly Assessment Administered: Yes Agglzhbcs-Nsitnbisgl-Qumerkqhxjasg Assessment: Cognitive ? Linguistic skills were evaluated using patient/family interview, skilled observation and informal evaluation through tasks completed by the patient. - Orientation Orientation: Person, Birthdate, Medical Diagnosis - Answer Yes/No Questions Simple: WNL Complex: WNL - Follows Commands 1 Step: WNL Complex: WNL - Automatic Sequences Automatic Sequences: WNL - Repetition Words: WNL Sentences: Moderate - Naming Responsive naming: Mild - Conversational Tasks Conversational Tasks: Moderate Comments: Herber had a high level of content words that he was unable to say. He ofen had a sentence but then lacked the final word ( I wanted to go out to ____). In conversation he is only 50% fluent and able to get his communication intent without help. - Reading Picture-Word Matching Picture-Word matching: Mild - Oral Reading Words: Moderate Sentences: Moderate Comments: He read 2/5 words correctly. Multisyllable words are more difficult for him. He stated that is reading the paper currently and that is all he reads at home. - Writing Sentences: Moderate Comments: Herber was able to copy a sentence correctly. When given a simple 3 word sentence to write ( Today is friday) he had errors. He wrote To Micah is January. When he was done writing it he stated that's wrong as he was able to identify errors. He stated that a goal of his is to be able to respond to email. - Recall Comments: Further assessment of recall is necessary. BNT-2 - BNT-2 BNT-2 Administered: Yes BNT: The BNT-2 is a confrontational naming test that asks the clinet to provide the best name for a given picture. The test was designed to detect word-finding impairments. In addition, stimulus cues that give semantic, phonemic (word- initial sound/s) and written information are provided as necessary. Date: 01/31/20 - BNT-2 Number of spontaneously given correct responses: 6 Number of stimulus cues given: 3 Number of correct responses following a stimulus cue: 0 Number of phonemic cues: 2 Number of correct responses following a phonemic cues: 0 Number of multiple choices given: 4 Number of correct choices: 1 - BNT-2 Score Total Number Correct: 6 - BNT Comments Comments. Herber had difficulty with naming. He had semantic paraphasias ( lobster for octopus) several times. Other times he was trying to say a word but it was non sense ( unable to say hammock or imitiate it) He was only able to get 5/15 labels. Plan - Plan Plan: Speech therapy is warranted for moderate expressive aphasia and midl receptive aphasia. - Recommendations MBS: No Treatment Warranted: Yes - Frequency Frequency: 2x /Week Duration: 6 Weeks Visits in this POC: 12 - Prognosis Prognosis: Excellent - Goals that are Established: Determination:: Goals will be added/modified as deemed necessary and appropriate. Therapy will be discontinued when results of re-evaluation indicate therapy is no longer needed or lack of progress has been documented. - Goal #1-5 Goal #1: Herber will complete naming tasks including but not limited to confrontational naming and responsive naming on 4/5 trials on 3/4 consecutive sessions. Goal #2: Herber will write, either by hand or typed, a 1-2 sentence with less than 3 errors on 4/5 trials on 3/4 consecutive sessions. Goal #3: Herber will participate in cognitive skills evaluation such as CLQT to evaluate recall and problem solving skills. Goals will be added as necessary. Education - Patient has Indicated that the Following Identified Educational Needs: None The Patient has indicated that they have no educational or learning abilities that may effect their care.: Yes - Patient Instruction Patient Education: Diagnosis, Treatment Plan, Goals Person Taught: Patient, Significant Other Teaching Method: Discussion Response to teaching: Verbalize understanding
--- NOTE | 2020-06-07 13:17 | HP.SP.DC ---
ST Discharge Summary - Discharged: Discharge: Herber Trimble is discharged from speech therapy at [facility] as of 04/14/20 at his request to complete home tasks. He attended 4 visits with excellent attendance and carry over. Initial evaluation was on 01/31/20 with goals to focus on cognitive testing, using a computer with correct spelling while typing and word finding. At this last session Herber was able to type a 8 sentence email with 7 errors. Cognitive testing - CLQT given - attention -WNL, memory- mild ( borderline on normal), executive function ? WNL, language moderate, visospatial skills ? WNL. The main language deficit was word finding and by the last session had limited errors in conversation and was able to continue the conversation easily. He was able to discuss medical information with his nurse today and his reported he did very well. Herber asked to be placed on a home program. He schedule a visit one month past last visit and he cancelled it as he was doing well. A copy of this discharge summary will be sent to his referring physician.
== END 2020-03-01 19:00 | disposition home or self-care (01) ==
LOC: SP 18:00
PROVIDERS: PCP Internal Medicine; Referring Provider Internal Medicine; Visit Provider Internal Medicine
DX: Z86.73 Personal history of transient ischemic attack (TIA), and cerebral infarction without residual deficits (principal)
CPT/HCPCS: 92507; 92523

== ENCOUNTER → 2020-03-15 11:23 | Outpatient (CLI) | payer OTHER, SELFPAY ==
[2020-01-25 11:01] VITALS: BMI 29.7
[2020-03-15 11:49] LABS: Hematocrit 38.2 % (40-54); Hemoglobin 12.4 g/dL (13.0-16.5); Mean Corp Hgb Conc 32.5 g/dL (32-36); Mean Corpuscular Hgb 31.5 pg (27.0-32.0); Mean Platelet Vol. 9.6 fl (6.2-12.0); Platelet Count 300 K/mm3 (150-450); RBC Distribution Width CV 12.9 % (11.6-14.6); RBC Distribution Width SD 45.9 fl (35.1-43.9); Red Blood Count 3.94 M/mm3 (4.6-6.2); White Blood Count 10.2 K/mm3 (4.4-11.0)
[2020-03-15 12:17] LABS: ALB/GLOB Ratio 0.8 RATIO (0.9-2.4); AST(SGOT) 13 U/L (15-37); Alanine Aminotransfer ALT/SGPT 31 U/L (16-61); Albumin, Serum 3.3 g/dL (3.2-5.0); Alkaline Phosphatase 169 U/L (45-117); Anion Gap 7 (5-15); BUN 43 mg/dL (7-18); BUN/Creat Ratio 15.8 RATIO (10-20); Calcium,Total 8.3 mg/dL (8.5-10.1); Chloride 108 mmol/L (98-107); Cholesterol 102 mg/dL (200); Creatinine, Serum 2.73 mg/dL (0.70-1.30); EST Glomerular Filtration Rate 25 mL/min (>60); Est Glom Filt Rate - Afr Amer 30 mL/min (>60); Globulin 3.9 g/dL (2.2-4.2); Glucose 94 mg/dL (74-106); High Density Lipoprotein 42 mg/dL; Potassium 4.7 mmol/L (3.5-5.1); Protein, Total 7.2 g/dL (6.4-8.2); Sodium Level 137 mmol/L (136-145); Triglycerides 74 mg/dL; Very Low Density Lipoprotein 15 mg/dL (5-40)
[2020-03-15 12:28] LABS: Vitamin D,25 Hydroxy 75.8 ng/mL
[2020-03-15 13:11] LABS: Creat.Clear Total Volume 2300 mL; Creatinine Clearance 33 ml/min (100-200); Creatinine Serum Creat 2.7 mg/dL (0.8-1.3); Creatinine Urine 55.8 mg/dL (NO RANGE EST.); EST Glomerular Filtration Rate 25 mL/min (>60); Est Glom Filt Rate - Afr Amer 30 mL/min (>60)
[2020-03-15 13:12] LABS: 24 Hour Urine Protein 167.9 mg/24HR (<150 MG/24HR); 24HR. UA Prot. Total Volume 2300 mL; Urine Protein (24 Hour) 7.3 mg/dL (<11.9)
== END ==
PROVIDERS: PCP Internal Medicine; Referring Provider Internal Medicine Nephrology; Visit Provider Internal Medicine Nephrology
DX: I12.9 Hypertensive chronic kidney disease with stage 1 through stage 4 chronic kidney disease, or unspecified chronic kidney disease (principal); N18.4 Chronic kidney disease, stage 4 (severe); E78.00 Pure hypercholesterolemia, unspecified; E55.9 Vitamin D deficiency, unspecified; Z79.899 Other long term (current) drug therapy
CPT/HCPCS: 36415; 80053; 80061; 81050; 82306; 82575; 84100; 84156; 85027

== ENCOUNTER → 2020-04-05 11:23 | Outpatient (CLI) | payer OTHER, SELFPAY ==
[2020-01-25 11:01] VITALS: BMI 29.7
== END ==
PROVIDERS: PCP Internal Medicine; Referring Provider Internal Medicine; Visit Provider Internal Medicine
DX: R06.83 Snoring (principal)
CPT/HCPCS: 95806

== ENCOUNTER → 2020-05-01 12:22 | Outpatient (CLI) | payer OTHER, SELFPAY ==
[2020-01-25 11:01] VITALS: BMI 29.7
== END ==
PROVIDERS: PCP Internal Medicine; Visit Provider Internal Medicine
DX: Z46.89 Encounter for fitting and adjustment of other specified devices (principal)

== ENCOUNTER → 2020-05-02 09:44 | Outpatient (CLI) | payer OTHER, SELFPAY ==
[2020-01-25 11:01] VITALS: BMI 29.7
== END ==
PROVIDERS: PCP Internal Medicine; Visit Provider Internal Medicine
DX: G47.33 Obstructive sleep apnea (adult) (pediatric) (principal)

== ENCOUNTER → 2020-05-30 06:29 | Outpatient (CLI) | payer OTHER, SELFPAY ==
[2020-05-11 10:38] VITALS: BMI 29.6
--- NOTE | 2020-05-30 11:29 | STRESSREP ---
Stress Test Report Date: 05-30-2020 Procedure: Pharmacologic stress nuclear imaging study Indications: Atrial fibrillation/flutter; nonsustained VT; shortness of breath/dyspnea on exertion Consent: Per the patient Procedure: The patient underwent pharmacologic (Regadenoson) evaluation with a peak heart rate of 126 beats per minute (84 %predicted maximal heart rate) and a peak blood pressure of 152/70 mmHg. The baseline ECG demonstrated atrial fibrillation/flutter. The peak pharmacologic ECG demonstrated no obvious ECG changes. There was a rare PVC during recovery. There was no complaint of chest discomfort during pharmacologic infusion or recovery. The examination was discontinued secondary to completion of protocol. Impression: 1. Pharmacologic (Regadenoson) evaluation 2. Peak pharmacologic ECG with continued atrial fibrillation/flutter with no obvious ECG changes. 3. There was a rare PVC during recovery. 4. Nuclear images pending Myocardial perfusion imaging study: Technique: The patient was injected with 11.3 millicuries of technetium 99m Cardiolite and subsequently rest SPECT Cardiolite nuclear imaging was obtained in the horizontal long, vertical long, and short axis views. The patient underwent pharmacologic (Regadenoson) evaluation with a peak heart rate of 126 beats per minute (84 % percent predicted maximal heart rate) and a peak blood pressure of 152/70 mmHg. The patient was injected with 33.3 millicuries of technetium 99m Cardiolite and subsequently stress SPECT Cardiolite nuclear imaging was obtained in the horizontal long, vertical long, and short axis views. A gated Cardiolite study at peak stress was obtained. Interpretation: Rest and stress SPECT Cardiolite nuclear imaging status post realignment, normalization, and attenuation correction demonstrate at rest the appearance of relative uniform tracer uptake and myocardial perfusion appearing within normal limits. Status post stress there is an area of diminished myocardial perfusion/tracer uptake in the lateral apical areas.. There is end systolic thickening and brightening. The gated Cardiolite study demonstrates myocardial thickening and inward wall motion. The reported LVEF is 68 %. Impression: 1. Rest and stress SPECT current nuclear imaging demonstrate myocardial perfusion changes concerning for an area of stress-induced myocardial ischemia involving the lateral apical areas. 2. The gated Cardiolite study reports an LVEF of 68 %. This note was generated with [employer] software. It may contain incorrect words, spelling, and punctuation that were not noted in checking the note before signing.
== END ==
PROVIDERS: PCP Internal Medicine; Referring Provider Internal Medicine Cardiovascular Disease; Visit Provider Internal Medicine Cardiovascular Disease
DX: R06.02 Shortness of breath (principal)
CPT/HCPCS: 78452; 93017; A9500; A4216; J2785

== ENCOUNTER 2020-06-27 06:57 | Day surgery (SDC) | payer OTHER, SELFPAY ==
[2020-05-11 10:38] VITALS: BMI 29.6
[2020-06-13 10:58] VITALS: BMI 29.6
[2020-06-13 11:36] LABS: Hematocrit 39.6 % (40-54); Hemoglobin 12.6 g/dL (13.0-16.5); Mean Corp Hgb Conc 31.8 g/dL (32-36); Mean Corpuscular Hgb 31.1 pg (27.0-32.0); Mean Corpuscular Volume 97.8 fL (80-94); Mean Platelet Vol. 9.6 fl (6.2-12.0); Platelet Count 311 K/mm3 (150-450); RBC Distribution Width CV 13.3 % (11.6-14.6); RBC Distribution Width SD 48.3 fl (35.1-43.9); Red Blood Count 4.05 M/mm3 (4.6-6.2); White Blood Count 8.4 K/mm3 (4.4-11.0)
[2020-06-13 11:43] LABS: International Normalized Ratio 1.3
[2020-06-13 11:44] LABS: Partial Thromboplast Time 29.6 Seconds (24.1-36.2)
[2020-06-13 12:11] LABS: Anion Gap 4 (5-15); BUN 38 mg/dL (7-18); BUN/Creat Ratio 14.5 RATIO (10-20); Calcium,Total 8.5 mg/dL (8.5-10.1); Chloride 112 mmol/L (98-107); Creatinine, Serum 2.62 mg/dL (0.70-1.30); EST Glomerular Filtration Rate 26 mL/min (>60); Est Glom Filt Rate - Afr Amer 31 mL/min (>60); Glucose 89 mg/dL (74-106); Potassium 4.7 mmol/L (3.5-5.1); Sodium Level 140 mmol/L (136-145)
[2020-06-26 08:06] VITALS: BMI 29.6
[2020-06-27] VITALS (15 sets, daily range): BP systolic 101–155; BP diastolic 58–91; PULSE 60–88; RESP 16–18; TEMP 36–36.8; O2SAT 95–100; BMI 29.0
--- NOTE | 2020-06-27 09:27 | HP.PCM_ITS ---
<Arely Quinones - Last Filed: 06/27/20 09:27> History and Physical Date of Admission: 06/27/20 This is a 69-year-old gentleman that presents here today for a diagnostic heart catheterization. He has a history of a atrial fibrillation/flutter and with a previous history of hypertension who presented to the emergency room on 01/19/2020 after sustaining an acute ischemic stroke. As you recall, he was administered tissue plasminogen activator. A CTA of his head and neck demonstrated less than 50% stenosis of the left internal carotid artery. His CT scan did not demonstrate any evidence of bleed and echocardiogram performed demonstrated preserved ejection fraction of 75%. He was discharged and had an event monitor placed. His event monitor was reported as demonstrating findings of underlying atrial flutter, ventricular tachycardia, PACs and PVCs, and episodes of sinus rhythm, as well as a report of a 3.6-second pause. He states that he was informed that he may need a permanent pacemaker placed-micro. He elected to seek further electrophysiology evaluation and was subsequently evaluated at [facility] by Dr. Hudson. He states at that time he did not have all the information but subsequently received the information. According to a note from his office he commented about atrial flutter and pauses and further evaluation which may include amiodarone therapy or ablation therapy. There did not appear to be any comment about the ectopy or the report of ventricular tachycardia. The patient states he has not been established for any other diagnostic testing. He does note he has a follow-up appointment with the mechanical handyman in June of this year. At his last office visit he had concerns over increased shortness of breath, feeling his heartbeat and feeling more fatigued. He underwent a pharmacologic nuclear stress test which demonstrated myocardial perfusion changes concerning for an area of stress-induced myocardial ischemia involving the lateral apical areas. Because of this he will be undergoing a heart catheterization. 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) Hyperlipidemia (Chronic) Essential (primary) hypertension (Chronic) CKD (chronic kidney disease), stage III (Chronic) Diverticulosis (Chronic) GERD (gastroesophageal reflux disease) (Chronic) Right sided weakness (Resolved) Surgical History History of carpal tunnel release (Resolved) Family History (System 04/04/20 @ 14:31 by Rosio Burger) Father Cancer lung Mother CVA (cerebral vascular accident) Social History Smoking Status: Former smoker alcohol intake: current details: occasional substance use type: does not use caffeine: No ROS Const Const: Positive for fatigue; negative for weakness, frequent falls, excessive sweating, weight gain or weight loss Eyes Eyes: Negative for transient loss of vision, blurry vision or change in vision ENT ENT: Negative for dizziness or balance problems Cardio Chest Pain: No Palpitations: Yes (daily) feels like its: fast, irregular Edema: None Muscle aches with walking: None Resp Respiratory: Positive for SOB with activity (with atrial fibrillation); negative for SOB at rest GI GI: Negative vomiting or vomiting blood/hematemesis : Negative for hematuria Musc Musc: Negative for muscle aches/ myalgia, muscle weakness, joint pain or balance problems Skin Skin: Negative non-healing lesions or rash Neuro Neuro: Positive for lightheadedness (with atrial fibrillation); negative for dizziness, orthostatic symptoms, frequent falls, weakness or blurry vision [place] Hematologic/Lymphatic: Negative for easy bleeding Endo Endo: Positive for fatigue; negative for excessive sweating Psych Psych: Negative for anxiety or depression Allergy Allergy/Immunology: Negative for hives, Negative for rash Cardiology Exam Const Appearance: cooperative, healthy appearing, comfortable, no acute distress, well developed and well groomed Nutritional Appearance: average body habitus and well nourished Orientation: alert, awake and oriented x3 Head Head: normal to inspection, normocephalic and atraumatic Ears: hearing grossly normal bilaterally and external ears normal Nose: external nose normal, nares normal Mouth: oral mucosae normal, tongue normal, oropharynx normal and moist mucous membranes Teeth and gingiva: dentition normal Throat: posterior oropharynx normal, tonsils normal and uvula midline Eyes Eyelids: eyelids normal Conjunctivae: conjunctivae normal Pupils: PERRL EOM: EOM intact bilaterally Neck Neck: normal visual inspection and no JVD JVD: +5 Carotids: normal carotid upstroke Chest Chest inspection: normal inspection of the chest, symmetric chest movement and normal respiratory effort Auscultation: Bilateral: Clear to Auscultation Cardio Palpation: normal PMI Rate: regular rate Rhythm: irregular rhythm Heart sounds: S1 normal and S2 normal; negative rub, gallop or murmur GI GI: normal to inspection, soft and bowel sounds present Neuro General: alert, awake, oriented x3, gait normal, moves all extremities and no focal sensory deficit Skin Skin: no rashes or lesions noted Extremities Pulses: Normal: Right Femoral Pulse, Left Femoral Pulse, Right Dorsalis Pedis Pulse, Left Dorsalis Pedis Pulse, Right Posterior Tibial Pulse, Left Posterior Tibial Pulse, Right Radial Pulse, Left Radial Pulse Lower Extremity Edema: None: Bilateral Musculoskel Musculoskeletal: No joint tenderness Psych Psychological: normal affect Assessment & Plan Problems 1. Abnormal stress test R94.39 2. Essential hypertension I10 3. CVA (cerebral vascular accident) I63.9 Acute CVA status post TPA left middle cerebral artery infarct. 01/20/2020 4. Hyperlipidemia, unspecified hyperlipidemia type E78.5 Plan - QUINTIN Bautista With patient's abnormal stress test for his concerns over feeling his heartbeat harder, increased shortness of breath and fatigue patient will be undergoing a diagnostic heart catheterization. Follow-up will be based upon heart catheterization results today. Supplemental Information Echocardiogram: 01/19/2020 Interpretation Summary The estimated ejection fraction is 75 %. Unable to assess diastolic dysfunction due to arrhythmia. Bubble contrast study negative for right to left interatrial shunt. Trivial mitral valve insufficiency. Trivial tricuspid valve insufficiency. Right ventricular systolic pressure estimated to be 48 mmHg. Moderate pulmonary hypertension. Patient appears to be in atrial fibrillation. There is no comparison study available. Procedure Criteria Procedure Type: Elective COVID Risk Discussion: The surgeon/proceduralist and patient have discussed in detail the risk of exposure to and/or potential harm posed by the COVID-19 virus with having a surgery/procedure at this time versus the risk of delaying the surgery/procedure. It is not possible to know either the risk of delaying the surgery or procedure or chance of getting an infection with perfect accuracy, but a joint decision was made between the patient and the surgeon/proceduralist to proceed at this time with the scheduled surgery/procedure as indicated on the consent form. <Herber Smalls - Last Filed: 06/27/20 09:51> History and Physical I have re-examined the patient. There are no clinical changes since date of exam.
--- NOTE | 2020-06-27 12:00 | EKG12_ITS ---
Test Reason : AM EKG Blood Pressure : / mmHG Vent. Rate : 078 BPM Atrial Rate : 357 BPM P-R Int : 000 ms QRS Dur : 082 ms QT Int : 376 ms P-R-T Axes : 000 023 -14 degrees QTc Int : 428 ms Atrial fibrillation Nonspecific ST abnormality Abnormal ECG When compared with ECG of 27-JUN-2020 15:45, MANUAL COMPARISON REQUIRED, DATA IS UNCONFIRMED Confirmed by RICCI MASSEY, OZZY ([id number]), general expeditor MAKENNA BLAIR ([id number]) on 06/28/2020 11:40:19 AM Referred By: Herber Smalls Confirmed By:IRAM WYNNE MD
[2020-06-27] MEDS: 0.9% Normal Saline 1,000 ML 100 ML IV ×2 (13:16→22:37)
--- NOTE | 2020-06-27 13:43 | CRPHASE1_ITS ---
Patient Communication Former Patient:: Phase I PHII Cardiac Rehab Discussed with Patient:: Yes Guide to Cardiac Rehab Given to Patient:: Yes Cardiac Rehab Facility Choice List Given to Patient:: Yes Choice Program [facility] CR PHII:: Communication Given to CR Choice Program Other:: Communication Given to CR Plate Former:: Iris Ibanez Phase II Cardiac Rehab:: Yes Sessions:: 36 sessions - 3 days/wk, 12 weeks Risk Factors/Lifestyle Smoking Status: Never smoker Second-Hand Smoke:: No Hx Hypertension: Yes Hx Diabetes Mellitus Type 1: No Hx Diabetes Mellitus Type 2: No Hx Metabolic Disorders: No Hx Dyslipidemia: Yes Hx Obesity: Yes Post-Menopausal: No ETOH: No Caffeine: No Substance Abuse: No Risk Factor for Sedentary Lifestyle: Moderate Risk Family History: Family History (This Medical Record has been edited. Action required.) Father Cancer Mother CVA (cerebral vascular accident) Phase I Education Given On:: [place], Nutrition, Antiplatelet medication, Smoking cessation Issues Affecting Care:: None Knowledge of Condition:: No Learning Preferences: Verbal Cardiac Rehabilitation Info Cardiac Rehabilitation Program Information: Cardiac Rehabilitation is important for patients like you who are recovering from a heart problem. Cardiac rehabilitation programs are recognized as integral to the continued care of the patient with coronary heart disease. The cardiac rehabilitation program is designed to optimize a patient's physical, psychological, and social functioning. Health women's health care nurse practitioner work in cardiac rehabilitation programs and assist you with getting the treatments you need to get stronger and healthier - like exercise, healthy eating habits, and medications. Cardiac rehabilitation has been show to help people with heart problems live longer and have better life enjoyment than people who do not go to cardiac rehabilitation. Please contact the Cardiac Rehabilitation Program at [facility] at in two weeks if you have not heard from them.
--- NOTE | 2020-06-27 13:46 | CRPH1.INSTRU ---
General Education CAD and cardiac anatomy and function:: Patient communicates acknowledgment Explanation of diagnoses and procedures:: Patient communicates acknowledgment Sign/Symptoms of NH:: Patient communicates acknowledgment Antiplatelet therapy: Patient communicates acknowledgment Proper use of NTG-SL: Patient communicates acknowledgment Emergency procedures and activation of EMS: Patient communicates acknowledgment Compliance of all prescribed medications: Patient communicates acknowledgment Dyslipidemia Patient Dyslipidemia Risk Factors Are:: Total Cholesterol, Triglycerides, HDL, LDL Recommendations Include:: Lipid profile provided, Reviewed NCEP/ATP guidelines, Therapeutic Lifestyle Change dietary guidelines Dyslipidemia Response Code:: Patient communicates acknowledgment Overweight/Obesity Patient Overweight/Obesity Risk Factors Are:: Overweight = 26-29 Recommendations Include:: Weight loss of 5-10%, Reduced calorie diet, Exercise 5-7 times/week Overweight/Obesity:: Patient communicates acknowledgment Hypertension Recommendations Include:: Maintain BP <130/85, DASH dietary guidelines, Decrease/maintain normal body weight, Moderation of ETOH Hypertension:: Patient communicates acknowledgment Sedentary Patient Sedentary Risk Factors Are:: Lack of regular exercise Recommendations Include:: Aerobic exercise 5-7 times/week for 20-30 minutes continuously, Benefits of regular exercise, Discussed home walking program, Monitored Outpatient Cardiac Rehab Sedentary Response Code:: Patient communicates acknowledgment
--- NOTE | 2020-06-27 14:53 | PCM.DC.CCA ---
<Arely Quinones - Last Filed: 06/27/20 14:53> Discharge Diet: Low fat/ Low Cholesterol Lifting Restrictions: 10 pounds and also avoid any pushing or pulling for 3 days after your test. Call your doctor if your incision/area has: Continuous Slow Oozing, Sudden Increased Bleeding, Increased Pain/ Swelling, Increased Redness, Foul Smelling Discharge, Swelling at the incision site Call your doctor if you observe: Fever of 101 or Higher, Shortness of breath, Chest pain Remove Dressing in (days):: 1 Additional Dressing/Incision Instructions:: Keep the dressing (bandage) on until the next morning. You may then shower, but do not take a tub bath/ where you will be soaking your wrist for 5 days after your test. It is normal to have some tenderness and discomfort at the puncture site. Sometimes bruising also occurs. However, if pain, numbness, or coldness occurs below the puncture site (in your leg, toes, arms or fingers) call your doctor at once. You may have a small, marble sized knot at the puncture site. This is normal. Do not rub it. It will go away in 4-6 weeks. Bleeding can occur from the area where the puncture was done. Blood may spurt or drip from the site. If blood spurts, apply pressure right away to stop bleeding and call 911. Although rare, bleeding into the tissue (hematoma) can also occur. If this happens, a large, firm area goose egg under the skin will appear. If any of these occur, lie down as flat as you can and have someone apply firm pressure to the cath site with a gauze pad or a clean washcloth for 10-15 minutes. Call 911 or go to the Emergency Department. Additional Instructions: Your Plavix can not be stopped for any reason for at least one year. CAll our office if you are asked to do so. We can talk further about cardiac rehab at your next OV Allergies/Adverse Reactions: Allergies NSAIDS (Non-Steroidal Anti-Inflamma Adverse Reaction (Severe, Verified 05/11/20 10:39) elevated BP Medications to take at Discharge Cholecalciferol (Vitamin D3) [Vitamin D3] 2,000 unit PO DAILY 01/18/20 Omeprazole 20 mg PO DAILY 01/18/20 aspirin 81 mg tablet,delayed release 81 mg PO QDAY #90 tab 01/25/20 tamsulosin 0.4 mg capsule 0.8 mg PO QHS cap 01/25/20 apixaban 5 mg tablet 5 mg PO BID 05/11/20 atorvastatin 20 mg tablet 20 mg PO QHS 05/11/20 losartan 50 mg tablet 25 mg PO DAILY tab 05/11/20 metoprolol succinate 25 mg tablet,extended release 24 hr 25 mg PO DAILY 05/11/20 acetylcysteine 600 mg capsule 600 mg PO BID #4 cap 06/22/20 Clopidogrel Bisulfate [Clopidogrel] 75 mg PO DAILY 06/27/20 The following prescriptions were given: acetylcysteine 600 mg capsule 600 mg PO BID #4 cap Transmission Status: Received by [facility]/pharmacy #[id number] Primary Care Physician: Bernie Crook MD [Primary Care Provider] - Test Results: Test results from this visit will be discussed in further detail at your follow-up appointment, if applicable. Please Follow Up With: Arely Quinones PA When: 07/17/2020 at 0900 Cardiac Rehabilitation Info Cardiac Rehabilitation Program Information: Cardiac Rehabilitation is important for patients like you who are recovering from a heart problem. Cardiac rehabilitation programs are recognized as integral to the continued care of the patient with coronary heart disease. The cardiac rehabilitation program is designed to optimize a patient's physical, psychological, and social functioning. Health behavioral health care manager work in cardiac rehabilitation programs and assist you with getting the treatments you need to get stronger and healthier - like exercise, healthy eating habits, and medications. Cardiac rehabilitation has been show to help people with heart problems live longer and have better life enjoyment than people who do not go to cardiac rehabilitation. Please contact the Cardiac Rehabilitation Program at [facility] at in two weeks if you have not heard from them. <Herber Smalls - Last Filed: 06/28/20 09:28> Test Results: Test results from this visit will be discussed in further detail at your follow-up appointment, if applicable. Cardiac Rehabilitation Info Cardiac Rehabilitation Program Information: Cardiac Rehabilitation is important for patients like you who are recovering from a heart problem. Cardiac rehabilitation programs are recognized as integral to the continued care of the patient with coronary heart disease. The cardiac rehabilitation program is designed to optimize a patient's physical, psychological, and social functioning. Health behavioral health care manager work in cardiac rehabilitation programs and assist you with getting the treatments you need to get stronger and healthier - like exercise, healthy eating habits, and medications. Cardiac rehabilitation has been show to help people with heart problems live longer and have better life enjoyment than people who do not go to cardiac rehabilitation. Please contact the Cardiac Rehabilitation Program at [facility] at in two weeks if you have not heard from them.
--- NOTE | 2020-06-27 16:26 | PN.CARD_ITS ---
Subjectve: The patient underwent diagnostic cardiac catheterization earlier this day. He underwent LAD PCI and diagonal branch PTCA. He appears to be resting c omfortably at this time in the PCU. Objective: Vital Signs Temp Pulse Resp BP Pulse Ox 97.8 F 70 18 131/84 H 96 06/27/20 15:56 06/27/20 15:56 06/27/20 15:56 06/27/20 15:56 06/27/20 15:56 Oxygen Flow Rate (L/min) 99 Oxygen Delivery Method Room Air Weight: 190 lb 9.6 oz Body Mass Index (BMI) 29.0 Finger Stick Blood Glucose 173 General: Awake, Alert, Oriented x 3, Cooperative, No Acute Distress HEENT: Atraumatic, Normocephalic, PERRL, EOMI, Sclera Non Icteric Neck: Supple, Good ROM, No JVD Lungs: Clear to auscultation Cardiovascular: Irregular Rhythm, Normal S1, Normal S2 Vascular: Normal Radial Pulses Abdomen: Bowel Sounds Present, Soft, Non Tender Extremities: No edema Neurological: No Focal Motor or Sensory Deficit Psych/Mental Status: Appropriate Rhythm: Atrial fibrillation Medical Necessity - Tobacco Use Smoking Status: Never smoker Assessment/Plan 1. CAD status post LAD PCI and diagonal branch PTCA At the present time the patient appears to be resting comfortably. He will continue medical therapy and follow-up. 2. Atrial fibrillation/flutter The patient will continue medical therapy which does include rate control therapy and anticoagulant therapy. 3. Ventricular tachycardia This was noted on the patient's previous event monitor. At the present time he will need to continue medical management. Hopefully finding his CAD and assisting his LAD/diagonal branch system will help with his underlying cardiac dysrhythmias. 4. Hyperlipidemia The patient should continue lipid-lowering therapy as deemed appropriate. 5. Hypertension The patient's blood pressure will be followed his medications can be adjusted as needed. This note was generated using a voice recognition system and there may be incorrect words, spelling or punctuation that were not noted when reviewing the office note prior to saving.
--- NOTE | 2020-06-27 16:44 | CL.D_ITS ---
Patient Name: HERBER YUNG Study Date: 06/27/2020 Performing: Herber Smalls MD Ht: 67 inches 170 cm : 1950 Wt: 189.8 lbs 86 kg Age: 69 Gender: male BSA: 1.98 PROCEDURE(S) PERFORMED [id number] W OR WO PTCA, SINGLE CORONARY ARTERY [id number], EACH ADD'L CORONARY ART, SAME MAJOR CLINICAL PROFILE AND INDICATIONS Indications: Cardiac Arrythmia, Suspected CAD Heart Failure: None Stress/Imaging Stress Test w/SPECT MPI: Yes Result: PositiveStress Test with SPECT MPI: Positive Angina Classification Anginal Classification w/in 2 Weeks: Anginal Equivalent Dyspnea CAD Presentations: Other: dyspnea on exertion CONCLUSIONS [place] Multivessel CAD RECOMMENDATIONS Medical therapy Referred for immediate PCI DESCRIPTION OF PROCEDURE The patient arrived to the procedure lab. The risks and benefits of the procedure as well as a full d escription of our services here and current unavailability of surgical backup were fully explained to the patient and/or their significant other prior to the catheterization. The Timeout was completed, verifying the correct patient and procedure. The patient's procedural site was prepped and draped in the usual fashion. Local anesthetic was given subcutaneously to right radial region with Lidocaine 2% . Using a modified Seldinger technique, arterial access was obtained via the right radial artery, a 6 Fr sheath was inserted. Right Coronary Artery selective angiography was then performed in multiple v iews using a 5 Fr. 4.0 [place] catheter. Left Coronary Artery selective angiography was performed in mu ltiple views using a 5 Fr. 4.0 [place] catheter.The arterial sheath was pulled and a TR Band was applie d for hemostasis 12cc air CORONARY ANGIOGRAPHY DOMINANCE: Right Dominant LEFT HEART ASSESSMENT Left Ventricular Ejection Fraction: Not assessed LEFT MAIN: Angiographically normal LEFT ANTERIOR DESCENDING ARTERY: PROX LAD: 85 % Stenosis DIAGONAL 1: Proximal - 25 % Stenosis DIAGONAL 2: Ostial - small caliber vessel: 75 % Stenosis CIRCUMFLEX ARTERY: PROX CIRC: Mild luminal irregularities RIGHT CORONARY ARTERY: Mild luminal irregularities COMPLICATIONS No Complications PROCEDURE MEDICATIONS Fentanyl 50 mcg IV Versed 1 mg IV Oxygen: 2 L/min via nasal cannula Heparin diluted in 23cc Heparinized saline. Patient given 10cc IA of this solution. 06/27/2020 10:19 :49 Heparin 6000 unit(s) IV 06/27/2020 10:47:53 Verapamil 2.5mg, Ntg 100mcgs, 2000 units of Heparin diluted in 23cc Heparinized saline. Patient give n 10cc IA of this solution. 06/27/2020 10:19:49 SUMMARY OF HEMODYNAMIC DATA Time AIR REST ECG 07:16:13 AO 103/84 (95) SA 10:29:16 Art 165/74 (98) 10:43:17 LV 113/3, 10 10:54:57 LV 115/0, 10 10:55:03 LVp 113/3, 10 10:55:11 AOp 117/63 (82) 10:55:16 Signed By Herber Smalls MD On 06/27/2020 16:43:52 Herber Smalls MD
[2020-06-27] MEDS: Tamsulosin HCl 0.4 MG Capsule 0.8 MG PO (22:06)
[2020-06-27] MEDS: Atorvastatin Calcium 20 MG Tablet PO (22:06)
[2020-06-27] MEDS: APIXABAN 5 MG TABLET PO (22:06)
[2020-06-27] MEDS: Acetylcysteine (Mucomyst Oral) 20% SOLN 600 MG PO (22:07)
[2020-06-28 02:59] VITALS: PULSE 84
[2020-06-28 03:55] VITALS: BP 143/64; PULSE 75; RESP 16; TEMP 36.8; O2SAT 97
[2020-06-28 06:10] LABS: Hematocrit 39.7 % (40-54); Hemoglobin 12.7 g/dL (13.0-16.5); Mean Corpuscular Hgb 31.1 pg (27.0-32.0); Mean Corpuscular Volume 97.3 fL (80-94); Mean Platelet Vol. 9.6 fl (6.2-12.0); Platelet Count 304 K/mm3 (150-450); RBC Distribution Width CV 12.7 % (11.6-14.6); RBC Distribution Width SD 45.3 fl (35.1-43.9); Red Blood Count 4.08 M/mm3 (4.6-6.2); White Blood Count 10.8 K/mm3 (4.4-11.0)
[2020-06-28 06:34] LABS: ALB/GLOB Ratio 0.8 RATIO (0.9-2.4); AST(SGOT) 17 U/L (15-37); Alanine Aminotransfer ALT/SGPT 31 U/L (16-61); Albumin, Serum 2.8 g/dL (3.2-5.0); Alkaline Phosphatase 149 U/L (45-117); Anion Gap 7 (5-15); BUN 36 mg/dL (7-18); BUN/Creat Ratio 14.6 RATIO (10-20); Calcium,Total 8.3 mg/dL (8.5-10.1); Chloride 113 mmol/L (98-107); Creatinine, Serum 2.46 mg/dL (0.70-1.30); EST Glomerular Filtration Rate 28 mL/min (>60); Est Glom Filt Rate - Afr Amer 33 mL/min (>60); Estimated Creatinine Clearance 26.65 ml/min; Globulin 3.6 g/dL (2.2-4.2); Glucose 92 mg/dL (74-106); Potassium 4.7 mmol/L (3.5-5.1); Protein, Total 6.4 g/dL (6.4-8.2); Sodium Level 141 mmol/L (136-145)
[2020-06-28 07:22] VITALS: O2SAT 96
[2020-06-28 07:34] VITALS: BP 153/82; PULSE 77; RESP 16; TEMP 36.8; O2SAT 96
[2020-06-28 07:48] VITALS: PULSE 81
--- NOTE | 2020-06-28 08:54 | PCM.DC.SUM ---
Discharge Date and Diagnosis Date of Admission: 06/27/20 Date of Discharge: 06/28/20 - Primary Discharge Diagnosis Acute Problems: CAD status post LAD PCI Suspected Problems: Atrial fibrillation Ventricular tachycardia Hyperlipidemia Hypertension Abnormal stress nuclear imaging study - Secondary Discharge Diagnosis Chronic Problems: Chronic Problems (Last Updated 06/27/20 @ 14:50 by Arely RIBEIRO, PA) Transient atrial fibrillation or flutter (Chronic 01/18/20) CVA (cerebral vascular accident) (Chronic 01/18/20) Acute CVA status post TPA left middle cerebral artery infarct. 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 This demonstrated underlying CAD involving the LAD/diagonal branch system. The patient subsequently underwent LAD PCI/MIKE and diagonal branch PTCA. The patient was monitored overnight. Based upon concerns of underlying renal insufficiency he did receive IV fluids and Mucomyst therapy as per his nephrology recommendations. His renal function was reassessed this day. His creatinine level had decreased to 2.46. This day he appeared to be symptomatically and hemodynamically stable. The patient was felt stable for release home for continued outpatient cardiovascular follow-up. [] Subjective: The patient is awake and alert and appears to be resting comfortably with no acute complaints. - Physical Exam Vitals/I&O's: Vital Signs Temp Pulse Resp BP Pulse Ox 98.3 F 81 16 153/82 H 96 06/28/20 07:34 06/28/20 07:48 06/28/20 07:34 06/28/20 07:34 06/28/20 07:34 Oxygen Flow Rate (L/min) 99 Oxygen Delivery Method Room Air Weight: 190 lb 14.725 oz Body Mass Index (BMI) 29.0 Finger Stick Blood Glucose 173 Intake and Output for Last 24 Hours 06/26/20 06/27/20 06/28/20 23:59 23:59 23:59 Intake Total 1635 / 1635 803.33 / 803.33 Output Total 725 / 725 350 / 350 Balance 910 / 910 453.33 / 453.33 General: Alert, Oriented x3, Cooperative, No apparent distress HEENT: Atraumatic, PERRLA, EOMI, Normocephalic Neck: Supple, No JVD Lungs: Clear to auscultation Cardiovascular: Normal S1, Normal S2, Irregular Rate Abdomen: Bowel Sounds Present, Soft, Non Tender Extremities: No edema Neurological: Neuro grossly intact Psych/Mental Status: Normal Affect Comment: Right radial artery: Pulse 2+/4+; no ecchymosis; no hematoma Laboratory Results 06/28/20 05:23: WBC 10.8, RBC 4.08 L, Hgb 12.7 L, Hct 39.7 L, MCV 97.3 H, MCH 31.1, MCHC 32.0, RDW Std Deviation 45.3 H, RDW Coeff of Steve 12.7, Plt Count 304, MPV 9.6 06/28/20 05:23: Sodium 141, Potassium 4.7, Chloride 113 H, Carbon Dioxide 21.0, Anion Gap 7, BUN 36 H, Creatinine 2.46 H, Estim Creat Clear Calc 26.65, Est GFR (MDRD) Af Amer 33 L, Est GFR (MDRD) Non-Af 28 L, BUN/Creatinine Ratio 14.6, Glucose 92, Calcium 8.3 L, Total Bilirubin 0.50, AST 17, ALT 31, Alkaline Phosphatase 149 H, Total Protein 6.4, Albumin 2.8 L, Globulin 3.6, Albumin/Globulin Ratio 0.8 L Current Medications Apixaban (Apixaban 5 Mg Tablet) 5 mg PO BID [facility] Last Admin: 06/27/20 22:06 Dose: 5 mg Documented by: Aspirin (Aspirin E.C. 81 Mg Tablet) 81 mg PO DAILY@0800 [facility] Atorvastatin Calcium (Atorvastatin Calcium 20 Mg Tablet) 20 mg PO QHS [facility] Last Admin: 06/27/20 22:06 Dose: 20 mg Documented by: Atropine Sulfate (Atropine Sulfate 1 Mg/10 Ml Syringe) 0.5 mg IV UD PRN PRN Reason: HR <50 bpm Cholecalciferol (Cholecalciferol (Vit D3) 1,000 Unit (25mcg)) 2,000 unit PO DAILY [facility] Clopidogrel Bisulfate (Clopidogrel Bisulfate 75 Mg Tablet) 75 mg PO DAILY [facility] Heparin Sodium (Beef Lung) (Heparin Lock 500 Unit/5 Ml In 10 Ml Syringe) 500 unit IV UD PRN PRN Reason: HEPARIN FLUSH Labetalol HCl (Labetalol (Prefilled) 20 Mg/4 Ml) 5 mg IV X1 PRN PRN Reason: SBP >160 when pulling sheath Losartan Potassium (Losartan Potassium 50 Mg Tablet) 25 mg PO DAILY [facility] Metoprolol Succinate (Metoprolol(Xl)Succ 25 Mg Tablet) 25 mg PO DAILY [facility] Pantoprazole Sodium (Pantoprazole Sodium 20 Mg Tablet) 20 mg PO DAILY [facility] Sodium Chloride (0.9% Normal Saline 500 Ml Iv.Soln.) 500 ml IV BOLUS PRN PRN Reason: VASO-VAGAL PROTOCOL Tamsulosin HCl (Tamsulosin Hcl 0.4 Mg Capsule) 0.8 mg PO QHS [facility] Last Admin: 06/27/20 22:06 Dose: 0.8 mg Documented by: Discharge Diet: Low fat/ Low Cholesterol Discharge Activity: May Drive - May not drive: 48 hours, May Shower, May Take a Tub Bath - May take a tub bath in 7 days May resume sexual activity in: 2 weeks Weight Bearing Status: - - Avoid heavy exertional activity x2 weeks Call your doctor if your incision/area has: Continuous Slow Oozing, Sudden Increased Bleeding, Increased Pain/ Swelling, Increased Redness, Foul Smelling Discharge, Swelling at the incision site Call your doctor if you observe: Fever of 101 or Higher, Shortness of breath, Chest pain Remove Dressing in (days):: 1 Cleanse incision/area with: Soap & Water Additional Dressing/Incision Instructions:: Keep the dressing (bandage) on until the next morning. You may then shower, but do not take a tub bath/ where you will be soaking your wrist for 5 days after your test. It is normal to have some tenderness and discomfort at the puncture site. Sometimes bruising also occurs. However, if pain, numbness, or coldness occurs below the puncture site (in your leg, toes, arms or fingers) call your doctor at once. You may have a small, marble sized knot at the puncture site. This is normal. Do not rub it. It will go away in 4-6 weeks. Bleeding can occur from the area where the puncture was done. Blood may spurt or drip from the site. If blood spurts, apply pressure right away to stop bleeding and call 911. Although rare, bleeding into the tissue (hematoma) can also occur. If this happens, a large, firm area goose egg under the skin will appear. If any of these occur, lie down as flat as you can and have someone apply firm pressure to the cath site with a gauze pad or a clean washcloth for 10-15 minutes. Call 911 or go to the Emergency Department. Home Medications: Medications to take at Discharge Cholecalciferol (Vitamin D3) [Vitamin D3] 2,000 unit PO DAILY 01/18/20 Omeprazole 20 mg PO DAILY 01/18/20 aspirin 81 mg tablet,delayed release 81 mg PO QDAY #90 tab 01/25/20 tamsulosin 0.4 mg capsule 0.8 mg PO QHS cap 01/25/20 apixaban 5 mg tablet 5 mg PO BID 05/11/20 atorvastatin 20 mg tablet 20 mg PO QHS 05/11/20 losartan 50 mg tablet 25 mg PO DAILY tab 05/11/20 metoprolol succinate 25 mg tablet,extended release 24 hr 25 mg PO DAILY 05/11/20 acetylcysteine 600 mg capsule 600 mg PO BID #4 cap 06/22/20 Clopidogrel Bisulfate [Clopidogrel] 75 mg PO DAILY 06/27/20 Following Prescriptions Were Given to Patient: acetylcysteine 600 mg capsule 600 mg PO BID #4 cap Transmission Status: Received by [facility]/pharmacy #[id number] Primary Care Physician: Bernie Crook MD [Primary Care Provider] - Please Follow Up With: Arely Quinones, PA When: 07/17/2020 at 0900 Additional Instructions: Your Plavix can not be stopped for any reason for at least one year. CAll our office if you are asked to do so. We can talk further about cardiac rehab at your next OV Disposition: Home Minutes spent on discharge:: 45 Patient Condition:: Stable Medical Necessity - Tobacco Use Smoking Status: Never smoker Meaningful Use Info Meaningful Use Diagnoses (Choose all that apply): None applicable
[2020-06-28] MEDS: Aspirin E.C. 81 MG Tablet PO (09:16)
[2020-06-28] MEDS: Losartan Potassium 50 MG Tablet 25 MG PO (09:17)
[2020-06-28] MEDS: APIXABAN 5 MG TABLET PO (09:17)
[2020-06-28] MEDS: Clopidogrel Bisulfate 75 MG Tablet PO (09:17)
[2020-06-28 09:18] VITALS: PULSE 81
[2020-06-28] MEDS: Pantoprazole Sodium 20 MG Tablet PO (09:18)
[2020-06-28] MEDS: Metoprolol(XL)Succ 25 MG Tablet PO (09:18)
--- NOTE | 2020-06-28 10:54 | PHA.DC.MC ---
Pharmacy Service has performed discharge medication reconciliation and counseling for this patient. 1. ACETYLCYSTEINE 600MG PO BID X 4 DOSES The patient's discharge medication list was reviewed for discrepancies and discrepancies were resolved. Home Medications Cholecalciferol (Vitamin D3) [Vitamin D3] 2,000 unit PO DAILY 01/18/20 Omeprazole 20 mg PO DAILY 01/18/20 aspirin 81 mg tablet,delayed release 81 mg PO QDAY #90 tab 01/25/20 tamsulosin 0.4 mg capsule 0.8 mg PO QHS cap 01/25/20 apixaban 5 mg tablet 5 mg PO BID 05/11/20 atorvastatin 20 mg tablet 20 mg PO QHS 05/11/20 losartan 50 mg tablet 25 mg PO DAILY tab 05/11/20 metoprolol succinate 25 mg tablet,extended release 24 hr 25 mg PO DAILY 05/11/20 acetylcysteine 600 mg capsule 600 mg PO BID #4 cap 06/22/20 Clopidogrel Bisulfate [Clopidogrel] 75 mg PO DAILY 06/27/20 The patient was counseled on the following discharge medications and changes in medications for homegoing were reviewed. The Reason for Use, instructions for use, and potential side effects were reviewed for all new medications. The patient's questions regarding all of their medications were answered. The patient was able to verbally demonstrate an understanding of their discharge medications.
--- NOTE | 2020-06-28 12:00 | EKG12_ITS ---
Test Reason : POST CATH Blood Pressure : / mmHG Vent. Rate : 073 BPM Atrial Rate : 340 BPM P-R Int : 000 ms QRS Dur : 090 ms QT Int : 416 ms P-R-T Axes : 000 027 -18 degrees QTc Int : 458 ms Atrial fibrillation T wave abnormality (nonspecific) Abnormal ECG Confirmed by MELYSSA MASSEY, HERBER ([id number]), news editor MAKENNA BLAIR ([id number]) on 06/29/2020 10:18:59 AM Referred By: Herber Ragsdale Confirmed By:HERBER RAGSDALE MD
--- NOTE | 2020-06-30 16:14 | CL.I_ITS ---
Patient Name: ELKIN YUNG Study Date: 06/27/2020 Performing: Sudhir Ibanez MD Ht: 67 inches 170 cm : 1950 Wt: 189.8 lbs 86 kg Age: 69 Gender: male BSA: 1.98 PROCEDURE(S) PERFORMED [id number] W OR WO PTCA, SINGLE CORONARY ARTERY [id number], EACH ADD'L CORONARY ART, SAME MAJOR CLINICAL PROFILE AND CO-MORBIDITIES Indications: Cardiac Arrythmia, Suspected CAD Heart Failure: None Stress/Imaging Stress Test w/SPECT MPI: Yes Result: Positive Stress Test with SPECT MPI: Positive Angina Classification Anginal Classification w/in 2 Weeks: Anginal Equivalent Dyspnea CAD Presentations: Other: dyspnea on exertion CONCLUSIONS Successful PCI with Drug eluting stent and PTCA to the pLAD and PTCA alone to ostial D2. RECOMMENDATIONS ASA Indefinitlelivier Brilinta for at least 12 months Follow up with Dr. Smalls DESCRIPTION OF PROCEDURE The patient arrived to the procedure lab. The risks and benefits of the procedure as well as a full d escription of our services here and current unavailability of surgical backup were fully explained to the patient and/or their significant other prior to the catheterization. The Timeout was completed, verifying the correct patient and procedure. The patient's procedural site was prepped and draped in the usual fashion. Local anesthetic was given subcutaneously to right radial region with Lidocaine 2% Using a modified Seldinger technique,arterial access was obtained via the right radial artery, a 6Fr sheath was inserted. Right Coronary Artery selective angiography was then performed in multiple view s using a 5 Fr. 4.0 [place] catheter. Left Coronary Artery selective angiography was performed in multi ple views using a 5 Fr. 4.0 [place] catheter.The images were reviewed and options discussed. A decision was then made to proceed with an Intervention, IVUS or other adjunct procedure. XB 3.0 Guide catheter was inserted and engaged into the LCA. BMW Guide wire was advanced to the D iag 2. 1.5 x 12 SC Euphora Balloon catheter was advanced across lesion in the second diagonal, ostial PTCA balloon inflated at 12 atms for 16 secs. Guide wire was repositioned to the LAD 2.5 x 12 SC Eup hora Balloon catheter was advanced across lesion in the LAD, proximal. PTCA balloon inflated at 8 lynsey s for 15 secs. PTCA balloon inflated at 8 atms for 9 secs. Angiogram performed post balloon dilatatio n. 2.5 x 20 Synergy Drug Eluting stent was advanced across the lesion in the LAD, proximal. Angiogram performed post stent deployment. 3.0 x 8 NC Emerge Balloon catheter was inserted post stent. Angiogr am performed post balloon dilatation. The arterial sheath was pulled and a TR Band was applied for hemostasis 12cc air INTERVENTION INFORMATION LESION SITE: LAD (Proximal) Lesion Complexity: High/C, chronic total occlusion: No, lesion at bifurcation: Yes, thrombus present: No, lesion length: 18 mm, culprit lesion: Yes, Previously treated lesion: No Pre Stenosis: 85 % Pre intervention BIJAN flow: 3 PROCEDURE: Drug Eluting Stent with pre and post dilatation Post Stenosis: 0 % Post intervention BIJAN flow: 3 Lesion Devices: Mota .014 BMW [place] Straight 190cm Cardinal 6 Fr XB3.0 100cm Guide Catheter Medtronic SC EUPHORA RX 2.5x12 BALLOON Burak Sci Synergy MR MIKE 2.50x20 Burak Sci NC EMERGE MR 3.00x08 BALLOON LESION SITE: 2nd Diagonal (Ostial) Lesion Complexity: High/C, chronic total occlusion: No, lesion at bifurcation: Yes, thrombus present: No, lesion length: 5 mm, culprit lesion: Yes, Previously treated lesion: No Pre Stenosis: 95 % Pre intervention BIJAN flow: 3 PROCEDURE: Balloon Angioplasty The diagonal was about 1.5mm in diameter. PTCA was performed as part of bifurcation LAD/D2 lesion. Pa tient had CKD and to minimise contrast use we did not make aggressive attempts to re enter the d2 aft er stent deployment. Post Stenosis: 95 % Post intervention BIJAN flow: 3 Lesion Devices: Mota .014 BMW [place] Straight 190cm Cardinal 6 Fr XB3.0 100cm Guide Catheter Medtronic SC EUPHORA RX 1.5x12 BALLOON COMPLICATIONS No Complications PROCEDURE MEDICATIONS Fentanyl 50 mcg IV Versed 1 mg IV Oxygen: 2 L/min via nasal cannula Heparin diluted in 23cc Heparinized saline. Patient given 10cc IA of this solution. 06/27/2020 10:19 :49 Heparin 6000 unit(s) IV 06/27/2020 10:47:53 Verapamil 2.5mg, Ntg 100mcgs, 2000 units of Heparin diluted in 23cc Heparinized saline. Patient give n 10cc IA of this solution. 06/27/2020 10:19:49 SUMMARY OF HEMODYNAMIC DATA Time AIR REST ECG 07:16:13 AO 103/84 (95) SA 10:29:16 Art 165/74 (98) 10:43:17 LV 113/3, 10 10:54:57 LV 115/0, 10 10:55:03 LVp 113/3, 10 10:55:11 AOp 117/63 (82) 10:55:16 Signed By Sudhir Ibanez MD On 06/30/2020 4:13:49 PM Sudhir Ibanez MD
== END 2020-06-28 08:59 | disposition home or self-care (01) ==
LOC: CLSP 06:58 → PCU 12:01
PROVIDERS: Specialist; PCP Internal Medicine; Referring Provider Internal Medicine Cardiovascular Disease; Visit Provider Internal Medicine Cardiovascular Disease
DX: I25.10 Atherosclerotic heart disease of native coronary artery without angina pectoris (principal); I48.91 Unspecified atrial fibrillation; I48.92 Unspecified atrial flutter; I69.320 Aphasia following cerebral infarction; E78.5 Hyperlipidemia, unspecified; I47.2 Ventricular tachycardia; I12.9 Hypertensive chronic kidney disease with stage 1 through stage 4 chronic kidney disease, or unspecified chronic kidney disease; I27.20 Pulmonary hypertension, unspecified; K21.9 Gastro-esophageal reflux disease without esophagitis; R94.39 Abnormal result of other cardiovascular function study; Z79.82 Long term (current) use of aspirin; Z79.01 Long term (current) use of anticoagulants; Z79.899 Other long term (current) drug therapy; Z87.891 Personal history of nicotine dependence; N18.30 Chronic kidney disease, stage 3 unspecified
CPT/HCPCS: 36415; 80048; 80053; 85027; 85610; 85730; 92921; 92928; 93005; 93454; 93458; 99152; 99153; J7030; J7040; Q9967; C1725; C1769; C1874; C1887; C1894; C9600; J1327

== ENCOUNTER → 2020-07-25 09:58 | Outpatient (CLI) | payer OTHER, SELFPAY ==
[2020-07-17 09:12] VITALS: BMI 29.3
[2020-07-25 10:40] LABS: Albumin, Serum 3.3 g/dL (3.2-5.0); BUN 36 mg/dL (7-18); BUN/Creat Ratio 14.3 RATIO (10-20); Calcium,Total 8.5 mg/dL (8.5-10.1); Chloride 112 mmol/L (98-107); Creatinine, Serum 2.51 mg/dL (0.70-1.30); EST Glomerular Filtration Rate 27 mL/min (>60); Est Glom Filt Rate - Afr Amer 33 mL/min (>60); Glucose 98 mg/dL (74-106); Phosphorus 3.1 mg/dL (2.5-4.9); Potassium 4.6 mmol/L (3.5-5.1); Sodium Level 139 mmol/L (136-145)
== END ==
PROVIDERS: PCP Internal Medicine; Referring Provider Internal Medicine Nephrology; Visit Provider Internal Medicine Nephrology
DX: N18.30 Chronic kidney disease, stage 3 unspecified (principal)
CPT/HCPCS: 36415; 80069

== ENCOUNTER 2020-11-16 09:46 | Outpatient (RCR) | payer OTHER, SELFPAY ==
[2020-11-13 09:01] VITALS: BMI 29.5
[2020-11-16] MEDS: COVID-19 VACC, MRNA(PFIZER)/PF 30 MCG/0.3 ML SYRINGE IM (09:39)
[2020-12-07] MEDS: COVID-19 VACC, MRNA(PFIZER)/PF 30 MCG/0.3 ML SYRINGE IM (09:31)
== END 2020-11-16 23:59 ==
LOC: IMMUN 09:46
PROVIDERS: PCP Internal Medicine; Visit Provider Family Medicine
DX: Z23 Encounter for immunization (principal)
CPT/HCPCS: 0001A; 0002A

== ENCOUNTER → 2020-12-20 10:37 | Outpatient (CLI) | payer OTHER, SELFPAY ==
[2020-07-17 09:12] VITALS: BMI 29.3
[2020-11-13 09:01] VITALS: BMI 29.5
[2020-12-20 12:27] LABS: Hemoglobin 13.7 g/dL (13.0-16.5); Mean Corp Hgb Conc 32.6 g/dL (32-36); Mean Corpuscular Hgb 31.6 pg (27.0-32.0); Mean Platelet Vol. 9.9 fl (6.2-12.0); Platelet Count 312 K/mm3 (150-450); RBC Distribution Width CV 13.5 % (11.6-14.6); Red Blood Count 4.33 M/mm3 (4.6-6.2); White Blood Count 9.8 K/mm3 (4.4-11.0)
[2020-12-20 12:45] LABS: PTHIN 137.8 pg/mL (18.4-80.1)
[2020-12-20 12:51] LABS: Albumin, Serum 3.3 g/dL (3.2-5.0); BUN 40 mg/dL (7-18); Calcium,Total 8.7 mg/dL (8.5-10.1); Chloride 108 mmol/L (98-107); Creatinine, Serum 2.86 mg/dL (0.70-1.30); EST Glomerular Filtration Rate 23 mL/min (>60); Est Glom Filt Rate - Afr Amer 28 mL/min (>60); Glucose 84 mg/dL (74-106); Phosphorus 2.8 mg/dL (2.5-4.9); Potassium 4.9 mmol/L (3.5-5.1); Sodium Level 135 mmol/L (136-145)
== END ==
PROVIDERS: PCP Internal Medicine; Referring Provider Internal Medicine Nephrology; Visit Provider Internal Medicine Nephrology
DX: N18.32 Chronic kidney disease, stage 3b (principal)
CPT/HCPCS: 36415; 80069; 83970; 85027

== ENCOUNTER 2021-01-10 06:17 | Day surgery (SDC) | payer OTHER, SELFPAY ==
[2020-11-13 09:01] VITALS: BMI 29.5
--- NOTE | 2021-01-06 19:17 | HP.PCM_ITS ---
History and Physical Date of Admission: 01/10/21 HISTORY AND PHYSICAL ? Herber Trimble 1950 ? REFERRING PHYSICIAN: Bernie Crook MD ? CHIEF COMPLAINT: colon consult ? HPI: The patient is a 70 year old male referred for endoscopy. Herber notes a history of colon polyps and is overdue for surveillance colonoscopy. Patient denies any change in bowel habits, weight changes, blood in stools, black tarry stools or abdominal pain. Denies family history of colon issues. The patient notes no upper GI complaints. ? Herber has undergone prior endoscopy. Most recent colonoscopy by Dr. Rojas 02/02/15 with findings of diverticulosis and hyperplastic colon polyps. 5 year follow up colonoscopy was recommended based on history of adenomatous polyp tissue removed during his prior colonoscopy by Dr. Contreras in 2008. ? Patient's past medical history is significant for stroke in January 2020, atrial fibrillation, chronic kidney disease, abnormal stress test for which he had heart cath and coronary stent placement in April 2020. Patient is currently on oral anticoagulation monitored by cardiology, which may not be interrupted due to his stent placement last year. Patient follows with Dr. Crook for his chronic medical conditions and with [facility] for cardiology. ? Patient denies problems with sedation in the past. ? ? PAST MEDICAL HISTORY PAST MEDICAL HISTORY Diagnosis Date ? Benign neoplasm of colon ? ? TA, last colonoscopy Jun 2009 ? CKD (chronic kidney disease) ? ? Diverticulosis of colon (without mention of hemorrhage) ? ? Elevated PSA ? ? Evaluated ? Esophageal reflux 10/24/2008 ? IMPAIRED RENAL FUNCT NOS 10/09/2007 ? Pure hypercholesterolemia ? ? Right shoulder injury ? ? Bicep tendon rotator cuff tear ? Stroke (cerebrum) (HCC) ? ? Unspecified essential hypertension ? ? ? PAST SURGICAL HISTORY PAST SURGICAL HISTORY Procedure Laterality Date ? COLONOSCOP W/ OR W/O BRSH SPEC ? 02/02/2015 ? Colonoscopy ? COLONOSCOPY W/BX ? 06/15/09 ? PAST SURGICAL HISTORY OF ? ? ? right arm surgery ? PAST SURGICAL HISTORY OF ? 01/31/16 ? [facility]ben[facility] ? ? ? CURRENT MEDICATIONS Current Outpatient Medications Medication Sig ? omeprazole (PRILOSEC) 20 mg capsule Take 1 capsule by mouth daily before breakfast. 1/2 hr before meal. ? metoprolol succinate ER (TOPROL XL) 25 mg 24 hr tablet Take 1 tablet by mouth once daily. ? apixaban (ELIQUIS) 5 mg tab(s) Take 1 tablet by mouth twice daily. ? aspirin, enteric coated (ASPIRIN, ENTERIC COATED) 81 mg EC tablet Take 81 mg by mouth once daily. ? losartan (COZAAR) 50 mg tablet Take 1 tablet by mouth once daily. As directed (Patient taking differently: Take 25 mg by mouth once daily. As directed ) ? atorvastatin (LIPITOR) 20 mg tablet Take 1 tablet by mouth once daily. ? tamsulosin ER (FLOMAX) 0.4 mg cp24 Take 2 capsules by mouth daily at bedtime. (RX [facility]) ? vit A-vit C-vit E-yuyn-facqsy (EYE VITAMIN AND MINERALS) 7,160-113-100 [id number] tab Take by mouth. ? Cholecalciferol, Vitamin D3, 2,000 unit cap Take 1 tablet by mouth once daily. ? No current facility-administered medications for this visit. ? ? ALLERGIES: Advil [Ibuprofen] ? PERSONAL HISTORY: SOCIAL HISTORY Social History ? Tobacco Use ? Smoking status: Former Smoker ? ? Packs/day: 0.50 ? ? Years: 15.00 ? ? Pack years: 7.50 ? ? Types: Cigarettes ? ? Quit date: 09/15/1984 ? ? Years since quittin.2 ? Smokeless tobacco: Never Used Substance Use Topics ? Alcohol use: Yes ? ? Comment: ocass ? Drug use: No ? FAMILY HISTORY: FAMILY HISTORY FAMILY HISTORY Problem Relation Age of Onset ? Heart Mother ? ? Hypertension Mother ? ? Cancer Father ? ? lung ? ? REVIEW OF SYMPTOMS: The review of systems data was entered by the nurse and reviewed by me ? Nursing Notes: Lucinda Carver LPN 12/18/2020 9:22 AM Signed REVIEW OF SYSTEMS: General: The patient denies fatigue, denies weight loss, denies weight gain, denies feeling hot, and denies feelings of cold. Eyes: The patient denies glaucoma, denies eye injury/surgery, wears glasses or contacts. Ear/Nose/Throat: The patient denies allergies, denies hayfever, denies ear infections, and denies bloody noses. Cardiovascular: The patient denies chest pain, NOTES heart disease, NOTES high blood pressure,NOTES cardiac stent, denies prior heart attack, NOTES irregular heart beat, denies high cholesterol, denies poor circulation, denies heart failure, other cardiac issues, denies claudication, denies cold feet, denies peripheral arterial stent. Respiratory: The patient denies tuberculosis, denies pneumonia, denies frequent cough, denies pulmonary embolism, denies shortness of breath, and denies coughing up blood. Gastrointestinal: The patient denies difficulty swallowing, NOTES acid reflux, denies ulcers, denies vomiting, denies jaundice/hepatitis, denies gallbladder problems, denies black or tarry stools, denies hemorrhoids, denies bleeding from rectum, denies diverticulitis, denies constipation, denies diarrhea, denies loss of stool control, and denies hernias. Kidney/Bladder: The patient denies kidney stones, denies urine infections, and denies bloody urine. Skin: The patient denies a history of skin cancer, denies bleeding/changing moles, and denies a history of skin rash. Neurologic: The patient denies a history of epilepsy/convulsions, denies headaches, denies head/spinal injuries, and NOTES stroke/TIA. Psychiatric: The patient denies psychiatric medications, denies depression, and denies voices, denies substance abuse. Endocrine: The patient denies thyroid disorders, denies diabetes, and denies hormonal problems. Hematologic: The patient NOTES a history of bruising, denies bleeding, and denies anemia, denies blood clots. Infections: The patient denies a history of measles and mumps, denies rheumatic fever, and denies sexually transmitted diseases. Musculoskeletal: The patient denies back pain/injury, denies back problems, denies sciatica, denies knee/foot trouble, denies arthritis, or denies gout. ? ? When was patient's last Mammogram screening? N/A ? Last Colonoscopy: 2014 ? Lucinda Carver LPN I have confirmed and edited as necessary, the PFSH and ROS obtained by others. ? PHYSICAL EXAMINATION: ? General: The patient is 70 year old male, well nourished, well hydrated in no acute distress. The patient is oriented to time, place, and person. ? VITALS: Blood pressure 140/68, pulse 83, temperature 36.1 ?C (96.9 ?F), temperature source Temporal, resp. rate 18, weight 88.5 kg (195 lb), SpO2 97 %. Body mass index is 29.65 kg/m?. ? HEENT: Normal cephalic, ataumatic, pupils are equally round, sclera are anicteric, mucous membranes are moist, oropharynx is clear. Neck has no masses, asymmetry or lymphadenopathy. ? Respiratory: Clear to auscultation and percussion. Normal respiratory excursion and pattern. ? Cardiac: Examination is regular rate and rhythm. Normal S1/S2 ? Abdominal exam: Soft, nontender, with no palpable masses. No hepatosplenomegaly. No palpable hernias. ? Extremities: no clubbing, cyanosis or edema. No adenopathy. ? LABORATORY VALUES: As Noted ? RADIOLOGIC STUDIES: As Noted ? ? Assessment IMPRESSION: encounter for surveillance colonoscopy due to personal history of colon polyps. Medical comorbidities including history of stroke, atrial fibrillation, s/p coronary stent placement, on continuous oral anticoagulation ? PLAN: I have reviewed my findings with the surgeon. Will plan for lower endoscopy. We discussed the risks and benefits of the planned endoscopy. I have informed the patient that complications can occur including failure to complete the endoscopy and perforation. The patient had the opportunity to ask questions concerning the planned endoscopy. My staff has also explained the procedure to the patient in understandable terms and has given the patient printed material concerning the procedure. The patient freely consents to surgery. ? The patient was offered a surgery/procedure at a [facility] facility. I have counseled the patient regarding the risk of exposure to and/or potential harm posed by the COVID-19 virus with having a surgery/procedure at this time versus the risk of? delaying the surgery/procedure. It is not possible to know either the risk of delaying the surgery or procedure or chance of getting an infection with perfect accuracy, but a joint decision was made between the patient and myself?to proceed at this time with endoscopy. ? Request for cardiac clearance sent to [facility] ? I plan to use Golytely bowel preparation-patient already has prep ? Patient to remain on his anticoagulation for the procedure ? We will plan for Monitored Anesthetic Care. ? ? ? Diagnoses: (Z12.11) Encounter for screening for malignant neoplasm of colon (primary encounter diagnosis) (Z86.010) History of colonic polyps (Z95.5) S/P coronary artery stent placement (Z79.01) On continuous oral anticoagulation ? I spent a total of 30 minutes on the date of the service which included preparing to see the patient, [id number] patient care, completing clinical documentation, obtaining and/or reviewing separately obtained history, performing a medically appropriate examination, counseling and educating the patient/family/caregiver, ordering medications, tests, or procedures and communicating with other HCPs (not separately reported). ? ? Jody Oliveira PA-C
--- NOTE | 2021-01-10 | COLBX_PTH ---
PATIENT: ELKIN YUNG LOC: EN U#:[id number] AGE/SX: 70/M ROOM: RE01/10/[address]: Dr. Mary Rasmussen MD : 1950 BED: DIS: 01/10/2021 SPEC #: [id number] RECD: 01/10/21 12:10 STATUS: [place] REQ #: [id number] FARTUN: 01/10/21 00:[address]: Mary Rasmussen DEPT: SURGICAL PATHOLOGY RECD BY: Gume Jara ENTERED: 01/10/21 12:10 SP TYPE: COLON BX OTHR DR: Dr. Bernie Crook MD Tissues: Rectum, NOS Procedures: Surgery Specimen Level IV HEADER OPERATION: Colonoscopy (MAC) PRE-OP DIAGNOSIS: History colon polyps TISSUE SUBMITTED: Rectal polyp cold snare MICROSCOPIC DIAGNOSIS Rectal polyp, biopsy: Hyperplastic polyp. AM:cecilia 01/11/2021 MICROSCOPIC DESCRIPTION Slides are reviewed. GROSS DESCRIPTION Received in fixative is one container labeled with the patient's name and designated rectal polyp. The specimen consists of two irregular fragments of doe soft tissue that in aggregate measure 0.5 x 0.1 x 0.1 cm. The specimen is totally submitted in one cassette. / SABA:cecilia 01/10/21 TC:5 CPT: 31912
[2021-01-10 06:56] VITALS: BP 144/83; PULSE 107; RESP 16; TEMP 36.1; O2SAT 96; BMI 27.6
[2021-01-10] MEDS: Lactated Ringers 1,000 ML 100 ML IV (07:00)
[2021-01-10 07:45] VITALS: BP 144/83; BP 87/46; PULSE 70; RESP 16; TEMP 36.1; O2SAT 94
--- NOTE | 2021-01-10 07:49 | OP.CCLET_ITS ---
01/10/2021 Bernie Crook [address] [place] [address] Re : Colonoscopy procedure for Herber Davidbeatrice Dear Dr. Crook This procedure was performed on Sunday, January 10, 2021. My impressions and recommendations are as follows: Impressions : - Diverticulosis in the sigmoid colon. - Non-bleeding internal hemorrhoids. - One 2 to 3 mm polyp in the rectum, removed with a cold snare. Resected and retrieved. Recommendations : - Repeat colonoscopy date to be determined after pending pathology results are reviewed for surveillance based on pathology results. - Follow up visit via telemedicine with Jody Oliveira PA-C to discuss results. Call to set this up, thank you - Continue present medications. My findings are described in the full procedure note, which is enclosed. If I can be of further assistance, please feel free to contact me at Doctor phone number(s): , Work: . Sincerely, MD Mary Milton MD 01/10/2021 7:49:14 AM This report has been signed electronically.
--- NOTE | 2021-01-10 07:49 | OP.COLON_ITS ---
Patient Name: Herber Trimble Procedure Date: 01/10/2021 7:10 AM Date of : 1950 Age: 70 Procedure: Colonoscopy Indications: High risk colon cancer surveillance: Personal history of colonic polyps Providers: Mary Rasmussen MD Referring MD: Mary Rasmussen MD Medicines: See the Anesthesia note for documentation of the administered medications Patient Profile: Refer to note in patient chart for documentation of history and physical. Last Colonoscopy: several years ago. Complications: No immediate complications. Procedure: Pre-Anesthesia Assessment: - see anesthesia note After I obtained informed consent, the scope was passed under direct vision. Throughout the procedure, the patient's blood pressure, pulse, and oxygen saturations were monitored continuously. The colonoscope was introduced through the anus and advanced to the cecum, identified by the appendiceal orifice, IC valve and transillumination. The colonoscopy was performed without difficulty. The patient tolerated the procedure well. The quality of the bowel preparation was adequate. Scope In: 7:27:34 AM Scope Withdrawal Time 0 hours 11 minutes 43 seconds Scope Out: 7:42:49 AM Total Procedure Duration Time 0 hours 15 minutes 15 seconds Findings: The perianal and digital rectal examinations were normal. Multiple small and large-mouthed diverticula were found in the sigmoid colon. Non-bleeding internal hemorrhoids were found. A 2 to 3 mm polyp was found in the rectum. The polyp was sessile. The polyp was removed with a cold snare. Resection and retrieval were complete. Verification of patient identification for the specimen was done by the nurse. Estimated blood loss was minimal. Impression: - Diverticulosis in the sigmoid colon. - Non-bleeding internal hemorrhoids. - One 2 to 3 mm polyp in the rectum, removed with a cold snare. Resected and retrieved. Recommendation: - Repeat colonoscopy date to be determined after pending pathology results are reviewed for surveillance based on pathology results. - Follow up visit via telemedicine with Jody Oliveira PA-C to discuss results. Call to set this up, thank you - Continue present medications. Procedure Code(s): --- Professional --- 27163, Colonoscopy, flexible; with removal of tumor(s), polyp(s), or other lesion(s) by snare technique CPT copyright 2017 [employer]. All rights reserved. The codes documented in this report are preliminary and upon cosmetics machine operator review may be revised to meet current compliance requirements. MD Mary Milton MD 01/10/2021 7:49:14 AM This report has been signed electronically. Number of Addenda: 0 Note Initiated On: 01/10/2021 7:10 AM
[2021-01-10 07:50] VITALS: BP 144/83; BP 94/71; PULSE 79; RESP 16; O2SAT 94
[2021-01-10 07:55] VITALS: BP 111/67; BP 144/83; PULSE 70; RESP 16; TEMP 36.3; O2SAT 94
[2021-01-10 08:17] VITALS: BP 144/83
== END 2021-01-10 08:33 | disposition home or self-care (01) ==
LOC: EN 06:17 → AC 06:18
PROVIDERS: PCP Internal Medicine; Referring Provider Surgery; Visit Provider Surgery
PROC: 0DJD8ZZ Inspection of Lower Intestinal Tract, Via Natural or Artificial Opening Endoscopic (ICD-10-PCS; CPT 45378; principal; 2021-01-10 07:25)
DX: Z12.11 Encounter for screening for malignant neoplasm of colon (principal); K62.1 Rectal polyp; K64.8 Other hemorrhoids; K57.30 Diverticulosis of large intestine without perforation or abscess without bleeding; I25.10 Atherosclerotic heart disease of native coronary artery without angina pectoris; I12.9 Hypertensive chronic kidney disease with stage 1 through stage 4 chronic kidney disease, or unspecified chronic kidney disease; N18.30 Chronic kidney disease, stage 3 unspecified; I48.11 Longstanding persistent atrial fibrillation; I69.320 Aphasia following cerebral infarction; I47.2 Ventricular tachycardia; E78.00 Pure hypercholesterolemia, unspecified; K21.9 Gastro-esophageal reflux disease without esophagitis; Z95.5 Presence of coronary angioplasty implant and graft; Z79.01 Long term (current) use of anticoagulants; Z79.82 Long term (current) use of aspirin; Z79.899 Other long term (current) drug therapy; Z86.010 Personal history of colon polyps; Z87.891 Personal history of nicotine dependence
CPT/HCPCS: 45385; 88305; J7050; J7120; J2405

== ENCOUNTER → 2021-04-25 09:20 | Outpatient (CLI) | payer OTHER, SELFPAY ==
[2020-11-13 09:01] VITALS: BMI 29.5
[2021-04-25 09:57] LABS: Hematocrit 43.3 % (40-54); Mean Corp Hgb Conc 32.3 g/dL (32-36); Mean Corpuscular Hgb 31.3 pg (27.0-32.0); Mean Corpuscular Volume 96.7 fL (80-94); Mean Platelet Vol. 9.9 fl (6.2-12.0); Platelet Count 290 K/mm3 (150-450); RBC Distribution Width CV 13.4 % (11.6-14.6); RBC Distribution Width SD 47.7 fl (35.1-43.9); Red Blood Count 4.48 M/mm3 (4.6-6.2); White Blood Count 9.9 K/mm3 (4.4-11.0)
[2021-04-25 10:17] LABS: Albumin, Serum 3.3 g/dL (3.2-5.0); BUN 36 mg/dL (7-18); BUN/Creat Ratio 14.9 RATIO (10-20); Calcium,Total 8.5 mg/dL (8.5-10.1); Chloride 106 mmol/L (98-107); Creatinine, Serum 2.41 mg/dL (0.70-1.30); EST Glomerular Filtration Rate 28 mL/min (>60); Est Glom Filt Rate - Afr Amer 34 mL/min (>60); Glucose 97 mg/dL (74-106); Phosphorus 3.2 mg/dL (2.5-4.9); Potassium 4.8 mmol/L (3.5-5.1); Sodium Level 137 mmol/L (136-145)
[2021-04-25 11:26] LABS: PTHIN 100.5 pg/mL (18.4-80.1)
== END ==
PROVIDERS: PCP Internal Medicine; Referring Provider Internal Medicine Nephrology; Visit Provider Internal Medicine Nephrology
DX: N18.4 Chronic kidney disease, stage 4 (severe) (principal); N25.81 Secondary hyperparathyroidism of renal origin
CPT/HCPCS: 36415; 80069; 83970; 85027

== ENCOUNTER 2021-10-03 11:45 | Outpatient (CLI) | payer OTHER, SELFPAY ==
[2021-10-03 13:01] LABS: Albumin, Serum 3.3 g/dL (3.2-5.0); BUN 39 mg/dL (7-18); BUN/Creat Ratio 15.1 RATIO (10-20); Calcium,Total 8.5 mg/dL (8.5-10.1); Chloride 104 mmol/L (98-107); Creatinine, Serum 2.59 mg/dL (0.70-1.30); EST Glomerular Filtration Rate 26 mL/min (>60); Est Glom Filt Rate - Afr Amer 31 mL/min (>60); Glucose 91 mg/dL (74-106); Phosphorus 2.6 mg/dL (2.5-4.9); Potassium 4.8 mmol/L (3.5-5.1); Sodium Level 133 mmol/L (136-145)
== END 2021-10-03 23:59 | disposition short-term general hospital (02) ==
LOC: LAB 11:46
PROVIDERS: PCP Internal Medicine; Visit Provider Internal Medicine Nephrology
DX: N18.4 Chronic kidney disease, stage 4 (severe) (principal); N25.81 Secondary hyperparathyroidism of renal origin
CPT/HCPCS: 36415; 80069; 83970

== ENCOUNTER → 2022-05-06 | Outpatient (CLI) | payer OTHER, SELFPAY ==
[2022-05-06 12:34] LABS: Hematocrit 37.6 % (40-54); Hemoglobin 12.7 g/dL (13.0-16.5); Mean Corp Hgb Conc 33.8 g/dL (32-36); Mean Corpuscular Hgb 32.5 pg (27.0-32.0); Mean Corpuscular Volume 96.2 fL (80-94); Mean Platelet Vol. 10.1 fl (6.2-12.0); Platelet Count 285 K/mm3 (150-450); RBC Distribution Width CV 12.9 % (11.6-14.6); RBC Distribution Width SD 45.5 fl (35.1-43.9); Red Blood Count 3.91 M/mm3 (4.6-6.2); White Blood Count 10.8 K/mm3 (4.4-11.0)
[2022-05-06 12:58] LABS: PTHIN 104.2 pg/mL (18.4-80.1)
[2022-05-06 13:19] LABS: Albumin, Serum 3.3 g/dL (3.2-5.0); BUN 46 mg/dL (7-18); BUN/Creat Ratio 17.4 RATIO (10-20); Calcium,Total 8.8 mg/dL (8.5-10.1); Chloride 107 mmol/L (98-107); Creatinine, Serum 2.64 mg/dL (0.70-1.30); EST Glomerular Filtration Rate 25 mL/min (>60); Est Glom Filt Rate - Afr Amer 31 mL/min (>60); Glucose 99 mg/dL (74-106); Phosphorus 2.7 mg/dL (2.5-4.9); Potassium 4.7 mmol/L (3.5-5.1); Sodium Level 135 mmol/L (136-145)
== END | disposition home or self-care (01) ==
LOC: LAB 11:13
PROVIDERS: PCP Internal Medicine; Referring Provider Internal Medicine Nephrology; Visit Provider Internal Medicine Nephrology
DX: N18.4 Chronic kidney disease, stage 4 (severe) (principal)
CPT/HCPCS: 36415; 80069; 83970; 85027

== ENCOUNTER → 2022-06-14 | Outpatient (CLI) | payer OTHER, SELFPAY ==
--- NOTE | 2022-06-14 08:38 | ECHOD_ITS ---
Reason For Study: HTN Procedure This was a 2D Doppler, Color Flow transthoracic echocardiogram. The exam was of adequate technical quality. Exam performed in department. Left Ventricle Normal LV size. Moderate concentric left ventricular hypertrophy. Left ventricular systolic function is normal. The estimated ejection fraction is 65 %. Stage 3 diastolic dysfunction. No regional wall motion abnormalities noted. Right Ventricle Normal RV size. Normal systolic function. Atria The left atrium is mildly enlarged. Normal right atrium. No doppler evidence for ASD. Mitral Valve There is moderate mitral annular calcification. Extension of the mitral annular calcification onto the base of the posterior mitral valve leaflet. Mild (1+) mitral valve insufficiency. Tricuspid Valve Normal tricuspid valve. Mild tricuspid valve insufficiency. Right ventricular systolic pressure estimated to be 44 mmHg. Aortic Valve Trisinus/trileaflet aortic valve. Normal aortic valve. Trivial eccentric aortic valve insufficiency. Pulmonic Valve The pulmonic valve is not well visualized. Trivial pulmonic valve insufficiency. Great Vessels Normal sized aortic root. Pericardium/Pleural No pericardial effusion. MMode/2D Measurements & Calculations LVIDd: 4.6 cm IVSd: 1.3 cm Ao root diam: 3.2 cm LVIDs: 3.5 cm LVPWd: 1.6 cm RVDd: 3.5 cm FS: 25.2 % LAV(MOD-bp): 95.8 ml LVAd ap4: 29.3 cm2 SV(MOD-sp4): 52.1 ml LAV(MOD-bp) Indexed: 47.9 ml/m2 LVLd ap4: 8.1 cm LAV(MOD-sp2): 85.9 ml EDV(MOD-sp4): 86.1 ml LAV(MOD-sp4): 97.6 ml EDV(sp4-el): 90.1 ml LVAs ap4: 15.7 cm2 LVLs ap4: 6.7 cm ESV(MOD-sp4): 34.0 ml ESV(sp4-el): 31.6 ml EF(MOD-sp4): 60.5 % EF(sp4-el): 64.9 % SV(sp4-el): 58.5 ml LA A4 area: 26.5 cm2 LA dimension(2D): 4.5 cm RA A4 area: 16.1 cm2 Time Measurements MV dec time: 0.15 sec Doppler Measurements & Calculations MV E max osvaldo: 115.1 cm/sec Lat Peak E' Osvaldo: 9.9 cm/sec Med Peak E' Osvaldo: 5.9 cm/sec MV A max osvaldo: 39.7 cm/sec E/E' lat: 11.6 E/E' med: 19.6 MV E/A: 2.9 MV V2 max: 119.6 cm/sec Ao V2 max: 114.8 cm/sec MV max P.7 mmHg MV dec slope: 768.8 cm/sec2 Ao max P.3 mmHg MV V2 mean: 63.6 cm/sec Ao V2 mean: 85.3 cm/sec MV mean P.0 mmHg Ao mean P.3 mmHg MV V2 VTI: 29.5 cm Ao V2 VTI: 27.5 cm LV V1 max: 82.8 cm/sec PA V2 max: 96.4 cm/sec TR max osvaldo: 320.4 cm/sec LV V1 max P.7 mmHg PA max PG (full): 0.29 mmHg TR max P.1 mmHg LV V1 mean P.5 mmHg PA V2 mean: 72.3 cm/sec LV V1 mean: 56.6 cm/sec PA mean PG (full): 0.33 mmHg LV V1 VTI: 19.4 cm ECHO/Echo Complete Interpretation Summary Left ventricular systolic function is normal. The estimated ejection fraction is 65 %. Moderate concentric left ventricular hypertrophy. The left atrium is mildly enlarged. There is moderate mitral annular calcification. Extension of the mitral annular calcification onto the base of the posterior mi tral valve leaflet. Mild (1+) mitral valve insufficiency. Mild tricuspid valve insufficiency. Trivial eccentric aortic valve insufficiency. Trivial pulmonic valve insufficiency. Right ventricular systolic pressure estimated to be 44 mmHg. Stage 3 diastolic dysfunction. Ordering Physician: Otis Salgado Referring Physician: Otis Salgado Performed By: Beata Burgos RCS
== END | disposition home or self-care (01) ==
LOC: CVS 08:38
PROVIDERS: PCP Internal Medicine; Referring Provider Nurse Practitioner Family; Visit Provider Nurse Practitioner Family
DX: I10 Essential (primary) hypertension (principal); E78.5 Hyperlipidemia, unspecified; Z95.5 Presence of coronary angioplasty implant and graft; Z98.890 Other specified postprocedural states
CPT/HCPCS: 93306

== ENCOUNTER → 2023-05-09 | Outpatient (CLI) | payer OTHER, SELFPAY | END | disposition home or self-care (01) | PROVIDERS: PCP Internal Medicine; Referring Provider Physician Assistant Medical; Visit Provider Physician Assistant Medical | DX: I48.11 Longstanding persistent atrial fibrillation (principal) | CPT/HCPCS: 93225; 93226 ==

== ENCOUNTER → 2023-05-22 | Outpatient (CLI) | payer OTHER, SELFPAY ==
--- NOTE | 2023-05-22 16:12 | RAD_ITS ---
INDICATION: pre DCCV EXAMINATION/TECHNIQUE: X-RAY - XR Chest 2 Views COMPARISON: 01/18/2020. FINDINGS: LINES/DEVICES: None. LUNGS: No consolidation or evidence of an effusion. No evidence of edema or a pneumothorax. MEDIASTINUM AND CARDIOVASCULAR STRUCTURES: Cardiac silhouette is normal in size and contour. Mediastinum is unremarkable. BONES AND SOFT TISSUES: No acute abnormality. RAD/Chest PA and Lateral IMPRESSION: No evidence of acute cardiopulmonary disease. Electronically Signed: Jimbo Virk DO at 22:36 EDT ,
[2023-05-22 17:26] LABS: Anion Gap 4 (5-15); BUN 36 mg/dL (7-18); BUN/Creat Ratio 13.1 RATIO (10-20); Chloride 112 mmol/L (98-107); Creatinine, Serum 2.75 mg/dL (0.70-1.30); EST Glomerular Filtration Rate 24 mL/min (>60); Est Glom Filt Rate - Afr Amer 29 mL/min (>60); Glucose 93 mg/dL (74-106); Potassium 4.9 mmol/L (3.5-5.1); Sodium Level 139 mmol/L (136-145)
== END | disposition home or self-care (01) ==
LOC: RAD 16:05
PROVIDERS: PCP Internal Medicine; Referring Provider Nurse Practitioner Family; Visit Provider Nurse Practitioner Family
DX: R06.02 Shortness of breath (principal); R00.0 Tachycardia, unspecified; Z98.890 Other specified postprocedural states
CPT/HCPCS: 36415; 71046; 80048

== ENCOUNTER 2023-06-25 07:17 | Day surgery (SDC) | payer OTHER, SELFPAY ==
--- NOTE | 2023-06-05 15:46 | PCM.HP.BLA ---
History and Physical Date of Admission: 06/25/23 This is a 72-year old white male who presents today for a cardioversion. He has a history of underlying CAD, PCI, atrial fibrillation, nonsustained VT, hyperlipidemia, and hypertension. As you recall, he has a history of a atrial fibrillation/flutter and with a previous history of hypertension who presented to the emergency room on 01/19/2020 after sustaining an acute ischemic stroke. He was administered tissue plasminogen activator. A CTA of his head and neck demonstrated less than 50% stenosis of the left internal carotid artery. His CT scan did not demonstrate any evidence of bleed and echocardiogram performed demonstrated preserved ejection fraction of 75%. He was discharged and had an event monitor placed. His event monitor was reported as demonstrating findings of underlying atrial flutter, ventricular tachycardia, PACs and PVCs, and episodes of sinus rhythm, as well as a report of a 3.6-second pause. He states that he was informed that he may need a permanent pacemaker placed-micra. He elected to seek further electrophysiology evaluation and was subsequently evaluated at [facility] by Dr. Hudson. According to a note from his office he commented about atrial flutter and pauses and further evaluation which may include amiodarone therapy or ablation therapy. There did not appear to be any comment about the ectopy or the report of ventricular tachycardia. He had concerns over increased shortness of breath, feeling his heartbeat and feeling more fatigued. He underwent a pharmacologic nuclear stress test which demonstrated myocardial perfusion changes concerning for an area of stress-induced myocardial ischemia involving the lateral apical areas. He underwent a diagnostic heart cath which demonstrated left main angiographically normal, proximal LAD 85% stenosis, diagonal 1 proximal 25% stenosis, diagonal 2 ostial small caliber 75% stenosis, circumflex mild luminal irregularities, RCA mild luminal irregularities. He underwent stenting to his proximal LAD and PTCA to his ostial D2 on 06/30/2020. He proceeded with EPS/RFA on 09/17/2021. He denies chest, arm, jaw, or neck discomfort. He denies palpitations. He denies bilateral lower extremity edema. He denies claudication. He states shortness of breath with activity such as stairs but now notes it with trap shooting. He denies shortness of breath at rest, orthopnea, or PND. He denies chronic cough. He denies significant, sudden weight gain. He denies lightheadedness, dizziness, near-syncope, or syncope. He denies blood in urine, blood in stool, or epistaxis. He denies fever with chills. He denies myalgia. He states fatigue with activity. His exercise level has remained stable. He has been using his [employer] mobile device randomly with no concerns. Intake Vital Signs: See EMR Intake Visit Reasons: [facility] Quality Assurance Test Program Manager Required: No Is patient in pain?: No Allergies NSAIDS (Non-Steroidal Anti-Inflamma Adverse Reaction (Severe, Verified 05/22/23 14:59) elevated BP Medications See EMR [facility] Medical History (Reviewed 05/22/23 @ 15:31 by Otis Salgado HOTEL OPERATION MANAGER, HOTEL OPERATION MANAGER-C) Aphasia due to acute stroke Atherosclerotic heart disease of [place] coronary artery without angina pectoris Atrial fibrillation CAD (coronary artery disease) CKD (chronic kidney disease), stage III CPAP (continuous positive airway pressure) dependence CVA (cerebral vascular accident) (01/18/20) Diverticulosis Essential (primary) hypertension GERD (gastroesophageal reflux disease) Hx of cardiovascular stress test Hx of echocardiogram Hyperlipidemia Hypertension Kidney disease Non-smoker Presence of stent in coronary artery (~06/27/20) Right sided weakness Shortness of breath on exertion Transient atrial fibrillation or flutter (01/18/20) Ventricular tachycardia Wears glasses Surgical History (Reviewed 05/22/23 @ 15:31 by Otis Salgado HOTEL OPERATION MANAGER, HOTEL OPERATION MANAGER-C) History of carpal tunnel release History of carpal tunnel release of both wrists History of coronary artery stent placement History of hand surgery History of radiofrequency ablation procedure for cardiac arrhythmia (~09/17/21) Hx of arthroscopy of shoulder Presence of coronary angioplasty implant and graft (~06/27/20) Family History (Reviewed 05/22/23 @ 15:31 by Otis Salgado HOTEL OPERATION MANAGER, HOTEL OPERATION MANAGER-C) Father Cancer lungMother CVA (cerebral vascular accident) Social History (Reviewed 05/22/23 @ 15:31 by Otis Salgado HOTEL OPERATION MANAGER, HOTEL OPERATION MANAGER-C) Smoking Status: Never smoker alcohol intake: current details: occasional substance use type: does not use caffeine: No ROS Const Const: Positive for difficulty sleeping; Negative for fatigue, weakness, headache(s), frequent falls or excessive sweating Eyes Eyes: Negative for loss of peripheral vision, transient loss of vision, blurry vision, double vision or tunnel vision ENT ENT: Negative for headache(s), dizziness, Nosebleed/epistaxis or balance problems Cardio Chest Pain: No Palpitations: No Edema: None Muscle aches with walking: None Resp Respiratory: Positive for SOB with activity (little with stairs); Negative for SOB at rest, SOB orthopnea\SOB lying down, Cough or paroxysmal nocturnal dyspnea GI GI: Negative nausea, vomiting, heartburn or black,tarry stools : Positive for frequent nighttime urination/ nocturia; Negative for hematuria Musc Musc: Negative for muscle aches/ myalgia, muscle weakness, joint pain or balance problems Skin Skin: Negative non-healing lesions, rash or unusual bruising Neuro Neuro: Negative for dizziness, lightheadedness, near syncope, syncope, frequent falls, headache(s), weakness, blurry vision, double vision or lack of coordination Collin Hematologic/Lymphatic: Negative for easy bleeding or easy bruising Endo Endo: Negative for fatigue, excessive sweating or increased thirst/drinking Psych Psych: Negative for anxiety or depression Allergy Allergy/Immunology: Negative for hives and Negative for rash Cardiology Exam Const Appearance: cooperative, healthy appearing, comfortable and no acute distress Nutritional Appearance: well nourished and overweight Orientation: alert, awake and oriented x3 Head Head: normal to inspection Ears: hearing grossly normal bilaterally Nose: external nose normal Face and Sinus: face symmetric Mouth: moist mucous membranes Eyes General: appearance normal, both eyes and all related structures Eyelids: eyelids normal EOM: EOM intact bilaterally Neck Neck: normal visual inspection and no JVD Carotids: normal carotid upstroke Chest Chest inspection: normal inspection of the chest, symmetric chest movement and normal respiratory effort; Negative cough Auscultation: Bilateral: Clear to Auscultation Cardio Rate: regular rate Rhythm: regular rhythm Heart sounds: S1 normal and S2 normal; Negative rub, gallop or murmur GI GI: normal to inspection Neuro General: patient alert, patient awake, patient oriented x3 and CN's II-XI intact bilaterally Skin Skin: no rashes or lesions noted Extremities Pulses: Normal: Right Posterior Tibial Pulse, Left Posterior Tibial Pulse, Right Radial Pulse and Left Radial Pulse Lower Extremity Edema: None: Bilateral Psych Psychological: normal affect Supplemental Info Echocardiogram from 06/14/2022: Interpretation Summary Left ventricular systolic function is normal. The estimated ejection fraction is 65 %. Moderate concentric left ventricular hypertrophy. The left atrium is mildly enlarged. There is moderate mitral annular calcification. Extension of the mitral annular calcification onto the base of the posterior mitral valve leaflet. Mild (1+) mitral valve insufficiency. Mild tricuspid valve insufficiency. Trivial eccentric aortic valve insufficiency. Trivial pulmonic valve insufficiency. Right ventricular systolic pressure estimated to be 44 mmHg. Stage 3 diastolic dysfunction. Echocardiogram: 01/19/2020 Interpretation Summary The estimated ejection fraction is 75 %. Unable to assess diastolic dysfunction due to arrhythmia. Bubble contrast study negative for right to left interatrial shunt. Trivial mitral valve insufficiency. Trivial tricuspid valve insufficiency. Right ventricular systolic pressure estimated to be 48 mmHg. Moderate pulmonary hypertension. Patient appears to be in atrial fibrillation. There is no comparison study available. Stress test 05/2020: Rest and stress SPECT current nuclear imaging demonstrate myocardial perfusion changes concerning for an area of stress-induced myocardial ischemia involving the lateral apical areas. The gated Cardiolite study reports an LVEF of 68 %. Heart catheterization June 2020 DOMINANCE: Right Dominant LEFT HEART ASSESSMENT Left Ventricular Ejection Fraction: Not assessed LEFT MAIN: Angiographically normal LEFT ANTERIOR DESCENDING ARTERY: PROX LAD: 85 % Stenosis DIAGONAL 1: Proximal - 25 % Stenosis DIAGONAL 2: Ostial - small caliber vessel: 75 % Stenosis CIRCUMFLEX ARTERY: PROX CIRC: Mild luminal irregularities RIGHT CORONARY ARTERY: Mild luminal irregularities PCI: Successful PCI with Drug eluting stent and PTCA to the pLAD and PTCA alone to ostial D2. Assessment and Plan Assessment and Plan (1) History of radiofrequency ablation procedure for cardiac arrhythmia: Status: Chronic Comment: Atrial fibrillation by Dr. Hoang @ [facility] 09/17/21 Plan: This appears stable. Twelve-lead ECG on 06/04/2022 showed sinus rhythm at a rate of 60 bpm, FL interval 210, QTc 430, and QRS 98. Twelve-lead ECG on 05/22/2023 showed atrial fibrillation at a rate of 71 bpm. He will continue metoprolol for rate control and Eliquis for CVA protection. Proceed with cardioversion. (2) Atherosclerotic heart disease of [place] coronary artery without angina pectoris: Status: Chronic Qualifiers: [place] vs. transplanted heart: [place]ka heart Qualified Code(s): I25.10 - Atherosclerotic heart disease of [place] coronary artery without angina pectoris Plan: He has a history of drug-eluting stent to proximal LAD and angioplasty alone to ostial diagonal 2 in June 2020. This appears stable. We will continue to monitor and not make any medication regimen changes. We will continue to promote risk factor and lifestyle modification. (3) Ventricular tachycardia: Status: Chronic Plan: This appears stable. He will continue metoprolol therapy. We will continue to monitor. (4) Hyperlipidemia: Status: Chronic Qualifiers: Hyperlipidemia type: unspecified Qualified Code(s): E78.5 - Hyperlipidemia, unspecified Plan: [facility] He will continue risk factor and lifestyle modification. He will continue atorvastatin 20 mg p.o. nightly. (5) Essential (primary) hypertension: Status: Chronic Plan: Patient's blood pressure is well-controlled at home with systolic 120?130s. We will continue to monitor. We will not make any medication regimen changes. He was asked continue to monitor his blood pressure regularly and contact office if it increases or is consistently elevated. (6) SOB (shortness of breath): Status: Chronic Plan: He does acknowledge shortness breath with activity that is more noticeable since atrial fibrillation. We will proceed with cardioversion to improve. Depending on response and symptoms post cardioversion, further recommendation will be made.
[2023-06-11 12:59] LABS: Anion Gap 4 (5-15); BUN 39 mg/dL (7-18); BUN/Creat Ratio 14.5 RATIO (10-20); Calcium,Total 8.4 mg/dL (8.5-10.1); Chloride 114 mmol/L (98-107); Creatinine, Serum 2.69 mg/dL (0.70-1.30); EST Glomerular Filtration Rate 25 mL/min (>60); Est Glom Filt Rate - Afr Amer 30 mL/min (>60); Glucose 93 mg/dL (74-106); Sodium Level 139 mmol/L (136-145)
[2023-06-24 10:51] VITALS: BMI 29.2
--- NOTE | 2023-06-25 09:26 | PCM.OP.PRO ---
Procedure Report Date of Procedure: 06/25/23 DC cardioversion 72-year-old man with a history of atrial fibrillation status post radiofrequency ablation who is back in atrial fibrillation. Patient has been compliant with anticoagulation. The patient was seen by Dr. Lea of the critical care division and informed consent obtained. Anterior-posterior pads were applied. The patient was administered 40 mg of intravenous propofol. 200 J of biphasic DC cardioversion energy were applied with prompt reversal to sinus rhythm. Patient tolerated the procedure well. Conclusion: Successful DC cardioversion from atrial fibrillation to sinus rhythm. Follow-up as per office protocol.
--- NOTE | 2023-06-25 09:48 | PRO.PCM_ITS ---
Procedure Report Date of Procedure: 06/25/23 CONSCIOUS SEDATION REPORT DATE OF SERVICE: June 25, 2023 BRIEF HISTORY OF PRESENT ILLNESS: The patient is a 72-year-old male who presented to [facility] for elective outpatient cardioversion due to underlying atrial fibrillation. The patient denied any prior anesthetic complications. He does have a known history of obstructive sleep apnea, for which he currently utilizes nocturnal CPAP therapy. The patient is systemically anticoagulated on Eliquis. His last surface echocardiogram demonstrated an ejection fraction of approximately 65%. PHYSICAL EXAMINATION: VITAL SIGNS: Reviewed and were acceptable. GENERAL: The patient is a male, in no apparent distress, speaking in full sentences. HEENT: Normocephalic, atraumatic. Mucous membranes are moist and pink. Good mouth opening noted. Trachea is midline. Good neck mobility. CHEST: S1, S2 irregularly irregular. No murmurs, rubs or gallops were noted. LUNGS: Clear to auscultation bilaterally without appreciable wheezes, rales or rhonchi. ABDOMEN: Soft, nontender, nondistended. Positive bowel sounds. EXTREMITIES: There is no clubbing, cyanosis or edema. ASA Class: II DESCRIPTION OF PROCEDURE: After confirmation of informed consent, the patient's anesthesia plan was reviewed in detail. Propofol was chosen. Risks and benefits were reviewed and the patient agreed to proceed. At 0919, the patient was given 40 mg of propofol. The patient achieved an appropriate level of sedation and was given a 200 joule synchronized cardioversion by Dr. Lock at the bedside. This was successful in achieving normal sinus rhythm. The patient was monitored until 930, at which time he reached his baseline mental status and function. The patient tolerated the procedure well. COMPLICATIONS: None ESTIMATED BLOOD LOSS: None RECOMMENDATIONS: Okay to recover in usual fashion. Procedures Pulmonary 9xxxx: [id number] Con Sedation
== END 2023-06-25 10:20 | disposition home or self-care (01) ==
PROVIDERS: PCP Internal Medicine; Referring Provider Internal Medicine Cardiovascular Disease; Visit Provider Internal Medicine Cardiovascular Disease
DX: I48.91 Unspecified atrial fibrillation (principal); N18.30 Chronic kidney disease, stage 3 unspecified; I12.9 Hypertensive chronic kidney disease with stage 1 through stage 4 chronic kidney disease, or unspecified chronic kidney disease; E78.5 Hyperlipidemia, unspecified; I25.10 Atherosclerotic heart disease of native coronary artery without angina pectoris; Z79.82 Long term (current) use of aspirin; Z79.01 Long term (current) use of anticoagulants; Z79.899 Other long term (current) drug therapy; Z86.73 Personal history of transient ischemic attack (TIA), and cerebral infarction without residual deficits; Z95.5 Presence of coronary angioplasty implant and graft
CPT/HCPCS: 36415; 80048; 92960; 93005; J7040

== ENCOUNTER → 2023-08-26 | Outpatient (CLI) | payer OTHER, SELFPAY ==
[2023-08-26 12:46] LABS: PTHIN 146.4 pg/mL (18.4-80.1)
[2023-08-26 12:47] LABS: Albumin, Serum 3.3 g/dL (3.2-5.0); BUN 41 mg/dL (7-18); BUN/Creat Ratio 14.7 RATIO (10-20); Calcium,Total 8.6 mg/dL (8.5-10.1); Chloride 108 mmol/L (98-107); Creatinine, Serum 2.79 mg/dL (0.70-1.30); EST Glomerular Filtration Rate 24 mL/min (>60); Est Glom Filt Rate - Afr Amer 29 mL/min (>60); Glucose 89 mg/dL (74-106); Phosphorus 3.4 mg/dL (2.5-4.9); Sodium Level 135 mmol/L (136-145)
== END | disposition home or self-care (01) ==
LOC: LAB 11:55
PROVIDERS: PCP Internal Medicine; Referring Provider Internal Medicine Nephrology; Visit Provider Internal Medicine Nephrology
DX: N18.4 Chronic kidney disease, stage 4 (severe) (principal); N25.81 Secondary hyperparathyroidism of renal origin
CPT/HCPCS: 36415; 80069; 83970

== ENCOUNTER → 2024-04-22 | Outpatient (CLI) | payer BC, SELFPAY ==
[2024-04-22 13:31] LABS: Albumin, Serum 3.2 g/dL (3.2-5.0); BUN 44 mg/dL (7-18); BUN/Creat Ratio 15.8 RATIO (10-20); Calcium,Total 8.3 mg/dL (8.5-10.1); Chloride 110 mmol/L (98-107); Creatinine, Serum 2.78 mg/dL (0.70-1.30); EST Glomerular Filtration Rate 24 mL/min (>60); Est Glom Filt Rate - Afr Amer 29 mL/min (>60); Glucose 88 mg/dL (74-106); Phosphorus 2.8 mg/dL (2.5-4.9); Sodium Level 136 mmol/L (136-145)
[2024-04-22 13:36] LABS: PTHIN 153.3 pg/mL (18.4-80.1)
== END | disposition home or self-care (01) ==
LOC: LAB 10:57
PROVIDERS: PCP Internal Medicine; Referring Provider Internal Medicine Nephrology; Visit Provider Internal Medicine Nephrology
DX: N18.4 Chronic kidney disease, stage 4 (severe) (principal); N25.81 Secondary hyperparathyroidism of renal origin
CPT/HCPCS: 36415; 80069; 83970

== ENCOUNTER → 2024-08-30 | Outpatient (CLI) | payer BC, SELFPAY ==
--- NOTE | 2024-08-30 08:39 | EKG12_ITS ---
Test Reason : PRE OP Blood Pressure : */* mmHG Vent. Rate : 71 BPM Atrial Rate : 71 BPM P-R Int : 212 ms QRS Dur : 98 ms QT Int : 422 ms P-R-T Axes : 46 96 -21 degrees QTcB Int : 458 ms Sinus rhythm with sinus arrhythmia with 1st degree A-V block Rightward axis Septal infarct , age undetermined T wave abnormality, consider inferior ischemia Abnormal ECG Confirmed by TITI MASSEY, SHAMAR ([id number]), photographic editor MAKENNA BLAIR ([id number]) on 08/30/2024 11:00:49 AM Referred By: Franc Collazo Confirmed By: SHAMAR WALLS MD
--- NOTE | 2024-08-30 08:45 | RAD_ITS ---
INDICATION: PRE OP EXAMINATION/TECHNIQUE: X-RAY - XR Chest 2 Views COMPARISON: May 22, 2023 FINDINGS: LINES/DEVICES: None. LUNGS: No consolidation, edema or effusion. No pneumothorax. MEDIASTINUM AND CARDIOVASCULAR STRUCTURES: Cardiac silhouette not enlarged. Central airways and mediastinal contour are unremarkable. BONES AND SOFT TISSUES: Unremarkable. RAD/Chest PA and Lateral IMPRESSION: No radiographic evidence of acute cardiopulmonary disease. Electronically Signed: Luis Bailey DO at 16:26 EST ,
[2024-08-30 10:00] LABS: Absolute Lymphocyte Count 1.63 X10^3/uL (0.83-4.51); Absolute Neutrophil Count 6.6 X10^3/uL (2.0-7.7); Basophil# 0.09 X10^3/uL; Basophil% 0.9 % (0-1); Eosinophil# 0.52 X10^3/uL; Eosinophils% 5.2 % (0-5); Hematocrit 34.9 % (40-54); Hemoglobin 10.8 g/dL (13.0-16.5); Lymphocyte # 1.63 X10^3/ul (0.83-4.51); Lymphocyte % 16.3 % (19-41); Mean Corp Hgb Conc 30.9 g/dL (32-36); Mean Corpuscular Hgb 30.9 pg (27.0-32.0); Mean Corpuscular Volume 99.7 fL (80-94); Mean Platelet Vol. 9.7 fl (6.2-12.0); Monocyte# 1.08 X10^3/uL; Monocyte% 10.8 % (0-10); NRBC Flagged by Analyzer 0 % (0-5); Neutrophil # 6.63 X10^3/uL (2.7-7.7); Neutrophil % 66.2 % (47-70); Platelet Count 296 K/mm3 (150-450); RBC Distribution Width CV 13.4 % (11.6-14.6); RBC Distribution Width SD 48.3 fl (35.1-43.9)
[2024-08-30 11:06] LABS: Anion Gap 7 (5-15); BUN 40 mg/dL (7-18); Calcium,Total 8.7 mg/dL (8.5-10.1); Chloride 112 mmol/L (98-107); Creatinine, Serum 2.85 mg/dL (0.70-1.30); EST Glomerular Filtration Rate 23 mL/min (>60); Est Glom Filt Rate - Afr Amer 28 mL/min (>60); Glucose 102 mg/dL (74-106); Potassium 5.1 mmol/L (3.5-5.1); Sodium Level 139 mmol/L (136-145)
== END | disposition home or self-care (01) ==
LOC: PSN 08:37
PROVIDERS: PCP Internal Medicine; Referring Provider Orthopaedic Surgery; Visit Provider Orthopaedic Surgery
DX: Z01.818 Encounter for other preprocedural examination (principal); M16.11 Unilateral primary osteoarthritis, right hip
CPT/HCPCS: 36415; 71046; 80048; 85025; 93005

== ENCOUNTER → 2024-09-07 | Outpatient (CLI) | payer BC, SELFPAY ==
--- NOTE | 2024-09-07 13:01 | STRESSREP ---
Stress Test Report Pharmacologic myocardial perfusion stress test. 74-year-old man for preop evaluation Resting EKG demonstrates sinus rhythm with a rate of 68 bpm. Resting blood pressure is 140/78 mmHg. 0.4 mg of regadenoson was infused per usual protocol followed by rapid intravenous saline flush injection. Continuous EKG monitoring was performed. The maximum heart rate was 85 bpm which was 59% of max impacted heart rate the maximum workload was 1 metabolic equivalent. At rest there were no ST or T wave changes noted to suggest ischemia and at peak infusion nonspecific ST changes were noted which did not meet the criteria for ischemia. No clinical angina is noted. The final blood pressure was 132/70 mmHg. Myocardial perfusion protocol. 11.8 mCi of technetium 99m sestamibi was injected at rest. 0.4 mg of regadenoson was infused per usual protocol. At peak infusion 35 mCi of technetium 99m sestamibi was injected stress images were obtained stress and rest images were reconstructed and compared in the short axis vertical long and horizontal long axis. Gated images were also obtained. Perfusion SPECT analysis: Review of the stress images demonstrate normal uptake of tracer noted in all areas of the myocardium. The resting images similar demonstrated normal uptake of tracer noted in all areas of the myocardium. No areas of reversibility are noted to suggest ischemia and no previous infarct is noted. Gated SPECT analysis: The gated ejection fraction is 57%. Conclusion: Normal pharmacologic myocardial perfusion stress test. Preserved ejection fraction.
== END | disposition home or self-care (01) ==
LOC: CVS 06:41
PROVIDERS: PCP Internal Medicine; Referring Provider Nurse Practitioner Family; Visit Provider Nurse Practitioner Family
DX: I25.10 Atherosclerotic heart disease of native coronary artery without angina pectoris (principal); N18.30 Chronic kidney disease, stage 3 unspecified; Z95.5 Presence of coronary angioplasty implant and graft; I12.9 Hypertensive chronic kidney disease with stage 1 through stage 4 chronic kidney disease, or unspecified chronic kidney disease; E78.5 Hyperlipidemia, unspecified; Z86.73 Personal history of transient ischemic attack (TIA), and cerebral infarction without residual deficits
CPT/HCPCS: 78452; 93017; A9500; A4216; J2785

== ENCOUNTER → 2024-12-22 | Outpatient (CLI) | payer MEDICARE, SELFPAY ==
[2024-12-22 11:23] LABS: Hematocrit 29.6 % (40-54); Hemoglobin 9.3 g/dL (13.0-16.5); Mean Corp Hgb Conc 31.4 g/dL (32-36); Mean Corpuscular Hgb 29.1 pg (27.0-32.0); Mean Corpuscular Volume 92.5 fL (80-94); Mean Platelet Vol. 9.1 fl (6.2-12.0); Platelet Count 346 K/mm3 (150-450); RBC Distribution Width CV 14.8 % (11.6-14.6); RBC Distribution Width SD 50.4 fl (35.1-43.9); White Blood Count 9.6 K/mm3 (4.4-11.0)
[2024-12-22 11:54] LABS: Albumin, Serum 3.6 g/dL (3.4-4.8); Anion Gap 10 (5-15); BUN 42 mg/dL (4-19); BUN/Creat Ratio 14.4 RATIO (10-20); Calcium,Total 8.6 mg/dL (7.6-11.0); Carbon Dioxide 17.1 mmol/L (21.0-32.0); Chloride 106 mmol/L (98-108); Creatinine, Serum 2.92 mg/dL (0.70-1.20); EST Glomerular Filtration Rate 22 (>60); Glucose 104 mg/dL (70-99); PTHIN 120 pg/mL (11-61); Phosphorus 3.3 mg/dL (2.7-4.5); Potassium 5.5 mmol/L (3.3-5.1); Sodium Level 133 mmol/L (133-145)
== END | disposition home or self-care (01) ==
LOC: LAB 10:47
PROVIDERS: PCP Internal Medicine; Referring Provider Internal Medicine Nephrology; Visit Provider Internal Medicine Nephrology
DX: N25.81 Secondary hyperparathyroidism of renal origin (principal); N18.4 Chronic kidney disease, stage 4 (severe)
CPT/HCPCS: 36415; 80069; 83970; 85027

== ENCOUNTER → 2024-12-29 | Outpatient (CLI) | payer MEDICARE, SELFPAY ==
[2024-12-29 11:20] LABS: Anion Gap 10 (5-15); BUN 49 mg/dL (4-19); BUN/Creat Ratio 14.5 RATIO (10-20); Calcium,Total 8.9 mg/dL (7.6-11.0); Chloride 108 mmol/L (98-108); Creatinine, Serum 3.35 mg/dL (0.70-1.20); EST Glomerular Filtration Rate 18 (>60); Ferritin 30 ng/mL (37-417); Glucose 129 mg/dL (70-99); Iron 26 ug/dL (65-175); Iron Binding Capacity,Total 413 ug/dL (250-450); Iron Binding Capacity,Unsat 387 ug/dL (228-428); PERCENT IRON SATURATION 6.3 % (9-55); Potassium 5.5 mmol/L (3.3-5.1); Sodium Level 136 mmol/L (133-145)
== END | disposition home or self-care (01) ==
LOC: LAB 09:43
PROVIDERS: PCP Internal Medicine; Referring Provider Internal Medicine Nephrology; Visit Provider Internal Medicine Nephrology
DX: E87.5 Hyperkalemia (principal); D63.8 Anemia in other chronic diseases classified elsewhere
CPT/HCPCS: 36415; 80048; 82728; 83540; 83550

== ENCOUNTER → 2025-01-03 | Outpatient (CLI) | payer MEDICARE, SELFPAY ==
[2025-01-03 12:11] LABS: Anion Gap 12 (5-15); BUN 44 mg/dL (4-19); BUN/Creat Ratio 14.4 RATIO (10-20); Calcium,Total 8.7 mg/dL (7.6-11.0); Chloride 106 mmol/L (98-108); Creatinine, Serum 3.06 mg/dL (0.70-1.20); EST Glomerular Filtration Rate 20 (>60); Glucose 113 mg/dL (70-99); Sodium Level 136 mmol/L (133-145)
== END | disposition home or self-care (01) ==
LOC: LAB.FUTURE 10:38 → LAB 10:39
PROVIDERS: PCP Internal Medicine; Referring Provider Internal Medicine Nephrology; Visit Provider Internal Medicine Nephrology
DX: E87.5 Hyperkalemia (principal)
CPT/HCPCS: 36415; 80048

== ENCOUNTER → 2025-05-11 | Outpatient (CLI) | payer MEDICARE, SELFPAY ==
[2025-05-11 13:33] LABS: Albumin, Serum 4.0 g/dL (3.4-4.8); Anion Gap 10 (5-15); BUN 41 mg/dL (4-19); BUN/Creat Ratio 15.4 RATIO (10-20); Calcium,Total 9.0 mg/dL (7.6-11.0); Carbon Dioxide 19.6 mmol/L (21.0-32.0); Chloride 107 mmol/L (98-108); Glucose 89 mg/dL (70-99); Potassium 5.4 mmol/L (3.3-5.1)
[2025-05-11 14:02] LABS: PTHIN 90 pg/mL (11-61)
== END | disposition home or self-care (01) ==
PROVIDERS: PCP Internal Medicine; Referring Provider Internal Medicine Nephrology; Visit Provider Internal Medicine Nephrology
DX: N18.4 Chronic kidney disease, stage 4 (severe) (principal)
CPT/HCPCS: 36415; 80069; 83970

== ENCOUNTER → 2025-05-19 | Outpatient (CLI) | payer MEDICARE, SELFPAY ==
[2025-05-19 11:11] LABS: Potassium 5.1 mmol/L (3.3-5.1)
== END | disposition home or self-care (01) ==
LOC: POLAB3 09:23
PROVIDERS: PCP Internal Medicine; Visit Provider Internal Medicine Nephrology
DX: E87.5 Hyperkalemia (principal)
CPT/HCPCS: 36415; 84132

== ENCOUNTER → 2025-06-16 | Outpatient (CLI) | payer MEDICARE, SELFPAY ==
[2025-06-16 12:13] LABS: Anion Gap 11 (5-15); BUN 49 mg/dL (4-19); BUN/Creat Ratio 17.2 RATIO (10-20); Calcium,Total 8.8 mg/dL (7.6-11.0); Carbon Dioxide 17.1 mmol/L (21.0-32.0); Chloride 110 mmol/L (98-108); Glucose 92 mg/dL (70-99); Potassium 5.0 mmol/L (3.3-5.1)
== END | disposition home or self-care (01) ==
LOC: LAB 11:14
PROVIDERS: PCP Internal Medicine; Referring Provider Internal Medicine Nephrology; Visit Provider Internal Medicine Nephrology
DX: E87.5 Hyperkalemia (principal)
CPT/HCPCS: 36415; 80048

== ENCOUNTER → 2025-08-15 | Outpatient (CLI) | payer MEDICARE, SELFPAY ==
[2025-08-15 12:37] LABS: Albumin, Serum 3.8 g/dL (3.4-4.8); Anion Gap 10 (5-15); BUN 40 mg/dL (4-19); BUN/Creat Ratio 14.3 RATIO (10-20); Calcium,Total 8.6 mg/dL (7.6-11.0); Carbon Dioxide 20.4 mmol/L (21.0-32.0); Chloride 104 mmol/L (98-108); Glucose 90 mg/dL (70-99); Potassium 5.0 mmol/L (3.3-5.1)
== END | disposition home or self-care (01) ==
PROVIDERS: PCP Internal Medicine; Referring Provider Internal Medicine Nephrology; Visit Provider Internal Medicine Nephrology
DX: E87.5 Hyperkalemia (principal)
CPT/HCPCS: 36415; 80069